=== PATIENT | male | born 1955 | race Caucasian/White ===

== ENCOUNTER 2019-08-20 11:50 | IRF | payer MEDICARE, MEDICAID, SELFPAY ==
--- NOTE | ~2019-08-20 | MR_ITS ---
EXAMINATION: MR brain/brain stem wo/w con DATE: 08/31/2019 08:15 INDICATION: Slurred speech. History of metastatic disease to the spine. TECHNIQUE: Magnetic resonance imaging (MRI) of the brain and brainstem was performed without and with 18 cc MultiHance intravenous contrast. Sequences included sagittal and axial T1-weighted SE, axial d iffusion-weighted FS SE, axial T2*-weighted GRE, axial T2-weighted FLAIR Propeller, and axial T2-weig hted Propeller. Apparent diffusion coefficient (ADC) maps were created. COMPARISON: None. FINDINGS: Brain parenchymal volume is normal for age. No evidence for acute infarction or hemorrhage. No abnormal masses or contrast enhancement. There are scattered moderate periventricular and subcorti rachel white matter changes, most likely related to small vessel ischemic disease (microangiopathy). No ventriculomegaly or midline shift. The paranasal sinuses and mastoids are pneumatized. Orbits are sym metric without disconjugate gaze. Structures of the posterior fossa including 7/8th cranial nerve com plexes are normal. Midline sagittal images are unremarkable. IMPRESSION: 1. No acute intracranial abnormality. No evidence for metastatic disease. 2: Chronic age-related findings. Reviewed, dictated and finalized at location A.
[2019-08-20 12:16] VITALS: BP 132/63; PULSE 88; RESP 19; TEMP 36.7; O2SAT 96; BMI 28.9
--- NOTE | 2019-08-20 12:28 | ADMGEN ---
This patient, Scott Mckinney, was admitted to [facility] Room 230-01. Patient/family oriented to hospital policies and general routines including ID bracelet, bed and alarms, visiting hours, pain management, procedures, bathroom and other care routines, personal items, smoking policy, room service/diet, and visiting hours. Valuables list has been completed. Information on how to activate the Rapid Response Team has been discussed. Patient/Family are encouraged to report perceived risks to care and to ask questions if they do not understand what they are told or what they should do.
[2019-08-20] MEDS: GABAPENTIN 300 MG CAPSULE PO (18:59)
[2019-08-20] MEDS: LIDOCAINE 5% PATCH 1 PATCH TOPICAL (19:01)
[2019-08-20 20:00] VITALS: PULSE 88; RESP 19; O2SAT 96
[2019-08-20 22:00] VITALS: BP 147/60; PULSE 94; RESP 22; TEMP 36.6; O2SAT 95
[2019-08-20] MEDS: CYCLOBENZAPRINE HCL 10 MG TABLET PO (22:11)
[2019-08-21 05:17] LABS: Basophils Absolute Auto 0.1 K/mm3 (0.0-0.1); Basophils Percent Auto 0.6 % (0.2-1.2); Eosinophils Absolute Auto 0.1 K/mm3 (0-0.3); Eosinophils Percent Auto 0.6 % (0-4.4); Hematocrit 42.1 % (42.0-52.0); Hemoglobin 13.8 g/dL (14.0-18.0); Immature Granulocyte Absolute 0.39 K/mm3 (0.00-0.031); Immature Granulocyte Percent A 3.6 % (0-0.5); Lymphocytes Absolute Auto 2.04 K/mm3 (0.9-3.2); Lymphocytes Percent Auto 18.8 % (18.3-44.2); Mean Corpuscular HGB Conc 32.8 g/dl (32-36); Mean Corpuscular Hemoglobin 31.2 pg (26-34); Mean Corpuscular Volume 95.2 fl (80-100); Monocytes Absolute Auto 0.7 K/mm3 (0.1-0.6); Neutrophils Absolute Auto 7.6 K/mm3 (1.3-6.7); Neutrophils Percent Auto 70.4 % (45.5-73.1); Platelet Count Result 194 k/mm3 (150-375); Red Blood Count 4.42 M/mm3 (4.6-6.20); Red Cell Distribution Width 14.6 % (11.5-14.5); White Blood Count 10.8 K/mm3 (4.5-10.0)
[2019-08-21 05:29] LABS: Blood Urea Nitrogen 19 mg/dL (9-20); Calcium 8.7 mg/dL (8.4-10.2); Carbon Dioxide 28 mmol/L (22-30); Chloride 103 mmol/L (98-107); Estimated CRCL calculation 111 ml/min; Estimated Glomerular Filt Rate > 60; Glucose 129 mg/dL (75-110); Potassium 4.2 mmol/L (3.4-5.0); Sodium 135 mmol/L (137-145)
[2019-08-21 06:00] VITALS: BP 119/61; PULSE 95; RESP 16; TEMP 36.6; O2SAT 95
--- NOTE | 2019-08-21 09:00 | WPDREHABHP ---
H&P: HPI History of Present Illness Chief complaint: Spinal cord compression Narrative: Scott Mckinney is a 64 year old male HISTORY OF PRESENT ILLNESS: The patient's primary rehab impairment category is spinal cord dysfunction /nontraumatic The etiologic diagnosis is ventral and left lateral spinal cord compression I saw this patient [id number] on August 21, 2019 at 9:00 a.m. The patient is a 64-year-old white male with a past medical history of hepatocellular carcinoma with known metastatic disease to T3 presented to [facility] on August 15, 2019 with worsening leg weakness over 3 days prior. He was diagnosed with the hepatocellular carcinoma approximately 3 weeks ago or he is not sure may be few months ago. He has received 4 radiation oncology treatments with loss treatment done on the day of presentation. He was also started on Lenvatinib daily and Decadron 4 milligram b.i.d. his medication oncologist is Dr. Rueda and radiation oncologist is Dr. Mckeon the patient reported he has grown weaker over the past 3 days and that his legs feel like jelly. He also reported decreased sensation from the belly button down. CT of the cervical spine and thoracic spine demonstrated lytic metastasis involving the entire T3 vertebral body and left pedicle but unchanged from prior exams. Noted prevertebral and epidural space narrowing of the spinal canal Prieb it will surgery was consulted and reviewed the imaging the noted visible compression of the ventral and left lateral spinal cord with overall moderate to severe spinal stenosis and recommended immediate surgical intervention consisting of T2-T3 laminectomy with application and removal of Ty head claim for surgery. The patient underwent surgery on the evening of August 15, 2019 with . Postoperatively the patient has experienced acute postoperative pain, acute blood-loss anemia, productive cough, hypertension and hyperglycemia. His postoperative pain is being controlled with oral pain medications, acute blood-loss anemia is stable with a hemoglobin of 3 in 13.8 and productive cough being monitored for infectious process, hypertension responded well to increasing lisinopril and hyperglycemia is likely due to steroid burst and is being treated with sliding scale insulin. He is on a general diet and will receive Lovenox at rehab for DVT prophylaxis Therapy was initiated at the acute care facility and the patient transferred to us from [facility] on August 20, 2019 on FALLS OR SURGERIES: The patient has had major surgeries in the 100 days prior to admission. They had falls in the past year. They had falls with injury in the past year. PAST MEDICAL HISTORY: hepatocellular carcinoma with metastatic disease to T3, nicotine dependence, hepatitis-C infection ( cured after antiviral drug therapy), measles, emphysema. 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 There are 3 steps to enter Cristin Trejo he was taking care of his sister prior to who is on hospice for stomach cancer. He did not really have to assist her with anything he is more there for emotional support company. He was completely Kendal in prior and only started using a walker 3 days prior to admission. His goal is to return to independence and be well thing by January. He does report a fall prior to admission when he laid on the floor for approximately 3 hours. He had major surgery this hospitalization. Current everyday smoker. No current alcohol use. FAMILY HISTORY: Sister with the stomach cancer PRIOR LEVEL OF FUNCTION: Eating was INDEPENDENT Oral Care was INDEPENDENT Toileting Hygiene was INDEPENDENT Shower/Bathing was INDEPENDENT Upper Body Dressing was INDEPENDENT Lower Body Dressing was INDEPENDENT Donning/[place] Footwear was INDEPENDENT Rolling
[2019-08-21 10:25] VITALS: BP 131/70; PULSE 100
[2019-08-21] MEDS: DEXAMETHASONE 4 MG TABLET PO (10:31)
[2019-08-21] MEDS: GABAPENTIN 300 MG CAPSULE PO ×3 (10:31→16:44)
[2019-08-21] MEDS: PANTOPRAZOLE 40 MG TABLET PO (10:32)
[2019-08-21] MEDS: lisinopriL 20 MG TABLET PO (10:32)
[2019-08-21] MEDS: MELOXICAM 7.5 MG TABLET PO (10:33)
[2019-08-21 11:24] VITALS: BMI 10.0
[2019-08-21 13:29] VITALS: BMI 28.9
[2019-08-21] MEDS: ENOXAPARIN 40 MG/0.4 ML SYRINGE SUB-Q (13:46)
[2019-08-21 14:00] VITALS: BP 129/67; PULSE 90; RESP 18; TEMP 36.4; O2SAT 98
--- NOTE | 2019-08-21 14:45 | PHAR ---
HOME MED VERIFIED LENVIMA 20MG DAILY DOSE (2X10MG CAPSULES)
--- NOTE | 2019-08-21 15:27 | RPD ---
INDIVIDUALIZED PLAN OF CARE FOR Scott Mckinney Brief Synthesis of Pre-Admission Screen, Post-Admission Evaluation and Therapy Evaluations: The patient presents to rehab with ventral and left lateral spinal cord compression. Comorbidities include status post T2-T3 laminectomy with application and removal of Ty head clamp, acute postoperative pain, acute blood loss anemia, hypertension, hyperglycemia in the setting of steroid administration, productive cough, hypocalcemia, hepatocellular carcinoma with metastasis, nicotine dependence. The patient requires physician services for medical oversight, management of postop complications in setting of present comorbidities, and pain management. He will be followed at least three times a week by the rehabilitation physician. Labs will be drawn to monitor blood counts and electrolytes periodically. The patient requires nursing services for DVT prophylactics, infection protection, medication management and education, bowel retraining, pressure relief, and wound care. Deficits include:ADLs, Balance, Endurance, Mobility, Pain Management, ROM, Safety, Strength,Transfers Americanization Teacher/Case Management for: Discharge Planning and Patient/Family Counseling Physical Therapy: 5 days per week for 90 minutes. Treatments may include: Therapeutic Exercise, Gait Training, Neuromuscular Re-education, Transfer Training, Community Reintegration, Bed Mobility, Patient/Family Education, Wheelchair Mobility Group Therapy/Concurrent Therapy Rationales: -Improve attention span during functional activities in a distracted environment. -Enhance problem solving and/or adequate judgment skills during functional activities in a distracted environment. -Promote increased safety awareness in a distracted environment to reduce fall risk with functional tasks, transfers, and ambulation to allow a more safe, self-sufficient return to the home environment. -Improve dynamic balance skills to promote safety and independence with functional activities in a distracted environment for maximum gain. Occupational Therapy: 5 days per week for 90 minutes. Treatments may include: Therapeutic Exercise, Therapeutic Activity, Cognitive Training, Self-Care Transfer Training, Community Reintegration, Home Management, Patient/Family Education, Wheelchair Mobility Training, Energy Conservation Training Group Therapy/Concurrent Therapy Rationales: -Allow therapist to observe and teach generalization and carry-over of skills learned in individual therapy. -Enhance problem solving and sequencing skills during therapeutic activities in a distracted environment. -Promote increased safety awareness in a realistic setting to reduce fall risk with functional tasks due to visual and verbal distractions. -Increase functional level with ADLs, ADL transfers and use of adaptive equipment through therapeutic activities with others while promoting safety to allow a more safe, self-sufficient return home. Medical Prognosis: Good Anticipated Length of Stay: 12 days Rehab Goals: Eating Goal: 06-Independent Oral Hygiene Goal: 06-Independent Toileting Hygiene Goal: 03-Partial/Moderate Assistance Shower/Bathe Self Goal: 03-Partial/Moderate Assistance Upper Body Dressing Goal: 03-Partial/Moderate Assistance Lower Body Dressing Goal: 03-Partial/Moderate Assistance Putting On/Taking Off Footwear Goal: 03-Partial/Moderate Assistance Rolling Left and Right Goal: 03-Partial/Moderate Assistance Sit to Lying Goal: 03-Partial/Moderate Assistance Lying to Sitting on Side of Bed Goal: 03-Partial/Moderate Assistance Sit to Stand Goal: 02-Substantial/Maximal Assistance Chair/Xet-kp-Rdsta Transfer Goal: 03-Partial/Moderate Assistance Toilet Transfer Goal: 03-Partial/Moderate Assistance Car Transfer Goal: 03-Partial/Moderate Assistance Walk 10' Goal: 02-Substantial/Maximal Assistance Walk 50' with Two Turns Goal: 88-Not Attempted Due to Medical Condition/Safety Concerns Walk 150' Goal: 88
[2019-08-21] MEDS: BENZONATATE 100 MG CAPSULE PO ×2 (18:27→21:10)
--- NOTE | 2019-08-21 20:19 | WPDONCCN ---
Assessment and Plan Assessment and plan (1) Hepatocellular carcinoma: Code(s): C22.0 - Liver cell carcinoma Status: Acute Assessment and Plan: 1. Starting tomorrow, he can begin his targeted drug therapy called Lenvima at 20 mg daily 2. over the weekend, I will recheck his CMP, TSH and CBC to make sure he is not having any adverse effects from this oral biological drug. 3. He will need an EKG on Sunday to assess for QT prolongation from this medication. 4. Since it is a week from his surgery, he should have had good wound healing and therefore this medication should not impair anything further with his postoperative condition. 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 I would proceed with NSAIDs versus steroids to some degree to help with the inflammation. He will continue with rehab and physical therapy as outlined by Dr. Jarvis. HPI Data of Consult Date/Time: 08/21/19 20:19 Requesting Physician: Mitesh Jarvis MD Primary Care Provider: Adeola BellMD Consult Narrative Narrative: Scott Mckinney is a 64 year old male With recent history of metastatic hepatocellular carcinoma, presents as a transfer from [facility] for acute rehabilitation after he underwent stabilization of his spinal cord in the upper thoracic spine from metastatic disease resulting in spinal cord compression and collapse. Patient recently was diagnosed with stage IV Hepatocellular carcinoma after he underwent a CT-guided liver biopsy. unfortunately, he had metastatic disease to T3 with compression fracture and spinal cord compression. He was undergoing radiation therapy by Dr. Mckeon along with dexamethasone 4 mg t.i.d.. Unfortunately last week, he started having progressive leg paresis and resultant MRI showed collapse of the vertebral body with further spinal cord compression. He was transferred to [facility] under the neuro surgical service. He underwent immediate spinal cord stabilization procedure. After that, he was transferred to [facility] acute rehab. Currently, he is complain of significant pain in the upper back with some radiculopathy down the spine. In addition, he has been prescribed targeted drug therapy with Lenvima to be dosed at 20 mg daily. He has yet to start this. Review of Systems Review of Systems: All systems reviewed & are unremarkable except as noted in HPI and below Constitutional: Constitutional: Denies anorexia, Reports difficulty sleeping, Reports fatigue, Denies fever(s), Reports malaise, Denies night sweats, Reports snoring, Reports weakness and Denies weight loss Eyes: Eyes: Denies blurry vision ENT: Denies dysphagia, Denies epistaxis, Denies mouth lesions, Denies mouth pain, Denies odynophagia, Denies disequilibrium and Denies sore throat Cardiovascular: Cardiovascular: Denies chest pain, Reports leg edema, Reports radiating jaw, neck or arm pain and Denies dyspnea Respiratory: Respiratory: Denies cough, Denies dyspnea and Reports snoring Gastrointestinal: Gastrointestinal: Denies abdominal pain, Denies constipation, Denies dysphagia, Denies diarrhea, Reports nausea, Denies odynophagia and Denies vomiting Genitourinary: Genitourinary: Denies hematuria and Denies dysuria Musculoskeletal: Musculoskeletal: Denies myalgias, Denies arthralgias and Denies muscle weakness Integumentary/Breasts: Skin/Breast: Denies rash and Denies unusual bruising Neurologic: Reports abnormal gait, Denies confusion, Denies disequilibrium and Reports weakness Psychiatric: Psychiatric: Reports anxiety, Denies confusion and Denies depression Endocrine: Endocrine: Denies fatigue Hematologic/Lymphatic: Hematologic/Lymphatic: Denies easy bleeding, Denies easy bruising and Denies lymphadenopathy PMFSH P
[2019-08-21] MEDS: CYCLOBENZAPRINE HCL 10 MG TABLET PO (21:10)
[2019-08-21 22:00] VITALS: BP 136/68; PULSE 98; RESP 20; TEMP 36.5; O2SAT 99
[2019-08-22 06:00] VITALS: BP 123/63; PULSE 85; RESP 20; TEMP 36.4; O2SAT 94
[2019-08-22] MEDS: BENZONATATE 100 MG CAPSULE PO ×3 (06:31→16:53)
--- NOTE | 2019-08-22 08:39 | WPDNEURORHBP ---
Subjective Date/time seen: 08/22/19 08:39 Interval history: this 64-year-old gentleman is here postop T2-T3 laminectomy for metastatic disease from hepatocellular carcinoma which has left him essentially severely para paretic he is overall about the same has been seen by the oncologist and has been is started on new medication today with the follow-up lab works and the EKG coming Sunday The patient denies any headache nausea vomiting chest pain or shortness of breath he is essentially paralyzed from the belly down with absent reflexes or times relatively preserved in a dynamic way and negative Babinski his strength roughly is about the same as of yesterday The patient does have an appointment with the surgeon at the hospital when he came to us and will keep that appointment for coming Sunday and he will go by ambulance Review of Systems Review of Systems: All systems reviewed & are unremarkable except as noted in HPI and below Exam Const: General: comfortable and no acute distress HENMT: General nose exam: Normal nares present Mouth: Yes moist mucous membranes Eyes: General: appearance normal, both eyes and all related structures Neck: Neck: supple and no JVD Resp: Effort & Inspection: normal respiratory effort Auscultation: clear to auscultation bilaterally Cardio: Rate: regular rate Rhythm: regular rhythm GI: GI Palp: Yes Soft to palpation Auscultation: normal bowel sounds : Male General Exam: Yes normal external exam Other: patient is periodically incontinent for the bladder however bowel functions is intact Skin: General skin exam: normal color and no rashes or lesions noted Neuro: Other: patient is awake alert and well oriented time place and person has normal speech and language function however generalized weakness to wear the lower extremities significantly involved with strength 3- over 5 in upper extremity 4- over 5 with specially a depressed reflexes and neutral Babinski sign Extrem: General: normal to inspection Psych: Mental Status: mental status grossly normal Objective Data Vital Signs Vital Signs: Vital Signs - 24 hr 08/21/19 10:25 08/21/19 14:00 08/21/19 22:00 Temperature 36.4 C 36.5 C Pulse Rate 100 90 98 Respiratory Rate 18 20 Blood Pressure 131/70 129/67 136/68 Pulse Oximetry 98 99 08/22/19 06:00 Temperature 36.4 C L Pulse Rate 85 Respiratory Rate 20 Blood Pressure 123/63 Pulse Oximetry 94 Intake/Output Intake/Output: Intake & Output 08/19/19 08/20/19 08/21/19 08/22/19 23:59 23:59 23:59 23:59 Intake Total 960 840 Balance 960 840 Meds/Results Medications: Active Medications Generic Name Dose Route Start Last Admin Trade Name Freq PRN Reason Stop Dose Admin Hydrocodone Bitart/Acetaminophen 1 tab 08/20/19 13:55 08/22/19 06:36 [place] 10-325 Mg PO 1 tab Q4H PRN Administration Pain Benzonatate 100 mg 08/20/19 13:55 08/22/19 06:31 Tessalon Perles PO 100 mg TID PRN Administration Cough Cyclobenzaprine HCl 10 mg 08/20/19 21:00 08/21/19 21:10 Flexeril PO 10 mg HS JOSE Administration Dexamethasone 4 mg 08/21/19 09:00 08/21/19 10:31 Dexamethasone Po PO 4 mg DAILY JOSE Administration Docusate Sodium 100 mg 08/20/19 17:00 08/21/19 16:37 Colace Capsule PO Not Given BID JOSE Enoxaparin Sodium 40 mg 08/21/19 09:00 08/21/19 13:46 Lovenox SUB-Q 40 mg DAILY JOSE Administration Gabapentin 300 mg 08/20/19 17:00 08/21/19 16:44 Neurontin PO 300 mg TID JOSE Administration Lidocaine 1 patch 08/20/19 09:00 08/21/19 13:45 Lidoderm TOPICAL Not Given DAILY JOSE Lisinopril 20 mg 08/21/19 09:00 08/21/19 10:32 Prinivil PO 20 mg DAILY JOSE Administration Meloxicam 7.5 mg 08/21/19 09:00 08/21/19 10:33 Mobic PO 7.5 mg DAILY JOSE Administration Ondansetron HCl 4 mg 08/20/19 13:55 Zofran Odt PO Q8H PRN Nausea Pantoprazole Sodium 40 mg 08/21/19
[2019-08-22] MEDS: DEXAMETHASONE 4 MG TABLET PO (09:12)
[2019-08-22] MEDS: PANTOPRAZOLE 40 MG TABLET PO (09:12)
[2019-08-22] MEDS: lisinopriL 20 MG TABLET PO (09:12)
[2019-08-22] MEDS: ENOXAPARIN 40 MG/0.4 ML SYRINGE SUB-Q (09:12)
[2019-08-22] MEDS: GABAPENTIN 300 MG CAPSULE PO ×3 (09:12→16:52)
[2019-08-22] MEDS: MELOXICAM 7.5 MG TABLET PO (09:13)
--- NOTE | 2019-08-22 10:00 | PC.NURSE ---
pt refused lidoderm patches this morning stating they don't help. updated.
[2019-08-22 14:00] VITALS: BP 164/74; PULSE 86; RESP 20; TEMP 36.3; O2SAT 97
[2019-08-22] MEDS: CYCLOBENZAPRINE HCL 10 MG TABLET PO (20:15)
[2019-08-22 21:18] VITALS: BP 139/94; PULSE 100; RESP 20; TEMP 36.3; O2SAT 96
[2019-08-23] MEDS: BENZONATATE 100 MG CAPSULE PO ×3 (02:12→17:46)
[2019-08-23 06:00] VITALS: BP 148/71; PULSE 81; RESP 16; TEMP 36.4; O2SAT 96
[2019-08-23 08:00] VITALS: PULSE 81; RESP 16; O2SAT 96
[2019-08-23] MEDS: PANTOPRAZOLE 40 MG TABLET PO (08:51)
[2019-08-23] MEDS: MELOXICAM 7.5 MG TABLET PO (08:51)
[2019-08-23] MEDS: DOCUSATE SODIUM 100 MG CAPSULE PO ×2 (08:51→17:41)
[2019-08-23] MEDS: DEXAMETHASONE 4 MG TABLET PO (08:51)
[2019-08-23] MEDS: lisinopriL 20 MG TABLET PO (08:51)
[2019-08-23] MEDS: GABAPENTIN 300 MG CAPSULE PO ×3 (08:52→17:41)
[2019-08-23] MEDS: SENNOSIDES 8.6 MG TABLET PO ×2 (08:52→17:41)
[2019-08-23] MEDS: ENOXAPARIN 40 MG/0.4 ML SYRINGE SUB-Q (08:52)
--- NOTE | 2019-08-23 12:43 | WPDNEURORHBP ---
Subjective Date/time seen: reviewed no /14/20 12:43 Exam Const: General: cooperative and comfortable HENMT: Head: normocephalic Ears: hearing grossly normal bilaterally General nose exam: Normal external nose present Face and sinus: normal facial exam Mouth: Yes Normal oral and palatal mucosa present Eyes: General: appearance normal, both eyes and all related structures Neck: Neck: normal visual inspection, full ROM and no lymphadenopathy Resp: Effort & Inspection: normal respiratory effort Auscultation: clear to auscultation bilaterally Cardio: Rate: regular rate Rhythm: regular rhythm GI: Auscultation: normal bowel sounds Skin: General skin exam: normal color Neuro: General: patient oriented x3 and moves all extremities Cranial nerves: Yes CN's II-XII intact bilaterally, Yes Equal, round and reactive pupils present, Yes Bilaterally intact EOM present, Yes Nystagmus not present, Yes Normal facial strength present, Yes Midline tongue present, Yes Symmetric palate elevation present, Yes Ability to bilaterally rotate head present and Yes Ability to bilaterally elevate shoulders present Cognition (Neuro): normal cognition Speech: normal speech Gait exam (Neuro): Unable to assess gait and Other gait observations present (quadroparesis LE>UE) Sensory Exam: Sensory deficit (Neuro) Deep tendon reflexes (DTR's): Right triceps reflex intensity grade: 0, Left triceps reflex intensity grade: 0, Rt Biceps (C5, C6): 0, Left biceps reflex intensity grade: 0, Right brachioradialis reflex intensity grade: 0, Left brachioradialis reflex intensity grade: 0, Right patellar reflex intensity grade: 0, Left patellar reflex intensity grade: 0, Right ankle reflex intensity grade: 0 and Left ankle reflex intensity grade: 0 Plantar Reflex Responses: equivocal: bilateral Psych: Appearance: grossly normal Objective Data Vital Signs Vital Signs: Vital Signs - 24 hr 08/22/19 14:00 08/22/19 21:18 08/23/19 06:00 Temperature 36.3 C L 36.3 C L 36.4 C L Pulse Rate 86 100 81 Respiratory Rate 20 20 16 Blood Pressure 164/74 H 139/94 H 148/71 H Pulse Oximetry 97 96 96 08/23/19 08:00 Temperature Pulse Rate 81 Respiratory Rate 16 Blood Pressure Pulse Oximetry 96 Intake/Output Intake/Output: Intake & Output 08/20/19 08/21/19 08/22/1920 23:59 23:59 23:59 23:59 Intake Total 960 840 720 100 Balance 960 840 720 100 Meds/Results Medications: Active Medications Generic Name Dose Route Start Last Admin Trade Name Freq PRN Reason Stop Dose Admin Hydrocodone Bitart/Acetaminophen 1 tab 08/20/19 13:55 08/23/19 02:11 [place] 10-325 Mg PO 1 tab Q4H PRN Administration Pain Benzonatate 100 mg 08/20/19 13:55 08/23/19 02:12 Tessalon Perles PO 100 mg TID PRN Administration Cough Cyclobenzaprine HCl 10 mg 08/20/19 21:00 08/22/19 20:15 Flexeril PO 10 mg HS JOSE Administration Dexamethasone 4 mg 08/21/19 09:00 08/23/19 08:51 Dexamethasone Po PO 4 mg DAILY JOSE Administration Docusate Sodium 100 mg 08/20/19 17:00 08/23/19 08:51 Colace Capsule PO 100 mg BID JOSE Administration Enoxaparin Sodium 40 mg 08/21/19 09:00 08/23/19 08:52 Lovenox SUB-Q 40 mg DAILY JOSE Administration Gabapentin 300 mg 08/20/19 17:00 08/23/19 08:52 Neurontin PO 300 mg TID JOSE Administration Lisinopril 20 mg 08/21/19 09:00 08/23/19 08:51 Prinivil PO 20 mg DAILY JOSE Administration Meloxicam 7.5 mg 08/21/19 09:00 08/23/19 08:51 Mobic PO 7.5 mg DAILY JOSE Administration Ondansetron HCl 4 mg 08/20/19 13:55 Zofran Odt PO Q8H PRN Nausea Pantoprazole Sodium 40 mg 08/21/19 09:00 08/23/19 08:51 Protonix PO 40 mg QAM JOSE Administration Senna 8.6 mg 08/20/19 17:00 08/23/19 08:52 Senokot Tablet PO 8.6 mg BID JOSE Administration Progress Note: A&P Assessment and Plan (1) 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
[2019-08-23 14:00] VITALS: BP 148/70; PULSE 90; RESP 18; TEMP 36; O2SAT 99
[2019-08-23] MEDS: CYCLOBENZAPRINE HCL 10 MG TABLET PO (20:23)
[2019-08-23 21:14] VITALS: PULSE 90; RESP 18; O2SAT 99
[2019-08-23 22:00] VITALS: BP 156/82; PULSE 91; RESP 18; TEMP 37.1; O2SAT 90
[2019-08-24 06:00] VITALS: BP 146/78; PULSE 86; RESP 20; TEMP 36.8; O2SAT 92
[2019-08-24 08:00] VITALS: PULSE 86; RESP 20; O2SAT 92
[2019-08-24] MEDS: lisinopriL 20 MG TABLET PO (09:43)
[2019-08-24] MEDS: GABAPENTIN 300 MG CAPSULE PO ×3 (09:43→17:23)
[2019-08-24] MEDS: ENOXAPARIN 40 MG/0.4 ML SYRINGE SUB-Q (09:43)
[2019-08-24] MEDS: MELOXICAM 7.5 MG TABLET PO (09:43)
[2019-08-24] MEDS: DOCUSATE SODIUM 100 MG CAPSULE PO ×2 (09:43→17:23)
[2019-08-24] MEDS: PANTOPRAZOLE 40 MG TABLET PO (09:43)
[2019-08-24] MEDS: DEXAMETHASONE 4 MG TABLET PO (09:44)
--- NOTE | 2019-08-24 10:09 | PCOTNOTE ---
Attempted to see patient for OT this AM, however, patient refused this date to participate in any functional task or exercise as patient is not feeling well and is having pain across his back and shoulders. Patient reported he plans to talk with his doctor about taking 3 days off from therapy to get well/better and then begin participating again in therapy. Therapist educated patient on importance of participating in therapy and requirements for staying in therapy on TRC. Patient refused this date still, patient not seen for OT.
--- NOTE | 2019-08-24 12:48 | WPDNEURORHBP ---
Subjective Date/time seen: 08/24/19 12:48 Review of Systems Review of Systems: All systems reviewed & are unremarkable except as noted in HPI and below Exam Const: General: cooperative, well developed, acute distress (c/o pain in shoulders) mild and anxious Orientation/consciousness: patient oriented x3 Eyes: General: appearance normal, both eyes and all related structures Alignment and Position: alignment normal Periorbital: periorbital findings normal Eyelids: eyelids normal Sclera: sclerae normal Cornea: corneas normal Pupils: Equal, round and reactive pupils present EOM: EOMs intact bilaterally Direct Ophthalmoscopy: normal light reflex Neck: Neck: full ROM and no lymphadenopathy Lymphatic: no lymphadenopathy noted Resp: Effort & Inspection: normal respiratory effort and able to speak in complete sentences Auscultation: clear to auscultation bilaterally Cardio: Rate: regular rate Rhythm: regular rhythm GI: Auscultation: normal bowel sounds Skin: General skin exam: no rashes or lesions noted Neuro: General: patient oriented x3 Cranial nerves: Yes CN's II-XII intact bilaterally, Yes Equal, round and reactive pupils present, Yes Nystagmus not present, Yes Normal facial strength present, Yes Midline tongue present, Yes Symmetric palate elevation present, Yes Ability to bilaterally rotate head present and Yes Ability to bilaterally elevate shoulders present Cognition (Neuro): normal cognition Speech: normal speech Gait exam (Neuro): Unable to assess gait Motor exam (neuro): 5/5 motor strength present throughout (quadroparesisLE>UE), Motor fasciculations not present and Motor abnormalities not present Deep tendon reflexes (DTR's): Right triceps reflex intensity grade: 0, Left triceps reflex intensity grade: 0, Rt Biceps (C5, C6): 0, Left biceps reflex intensity grade: 0, Right brachioradialis reflex intensity grade: 0, Left brachioradialis reflex intensity grade: 0, Right patellar reflex intensity grade: 0, Left patellar reflex intensity grade: 0, Right ankle reflex intensity grade: 0 and Left ankle reflex intensity grade: 0 Plantar Reflex Responses: equivocal: bilateral Psych: Mental Status: mental status grossly normal Speech and movement: Clear speech present Affect: Anxious affect present Attitude: cooperative Thought process: Normal thought process present Thought content: Yes Normal thought content present Insight: Fair insight present (Psych) Objective Data Vital Signs Vital Signs: Vital Signs - 24 hr 08/23/19 14:00 08/23/19 21:14 08/23/19 22:00 Temperature 36.0 C L 37.1 C Pulse Rate 90 90 91 Respiratory Rate 18 18 18 Blood Pressure 148/70 H 156/82 H Pulse Oximetry 99 99 90 08/24/19 06:00 08/24/19 08:00 Temperature 36.8 C Pulse Rate 86 86 Respiratory Rate 20 20 Blood Pressure 146/78 H Pulse Oximetry 92 92 Intake/Output Intake/Output: Intake & Output 08/21/19 08/22/19 08/23/19 08/24/19 23:59 23:59 23:59 23:59 Intake Total 840 720 580 Balance 840 720 580 Meds/Results Medications: Active Medications Generic Name Dose Route Start Last Admin Trade Name Freq PRN Reason Stop Dose Admin Hydrocodone Bitart/Acetaminophen 1 tab 08/20/19 13:55 08/24/19 09:44 [place] 10-325 Mg PO 1 tab Q4H PRN Administration Pain Benzonatate 100 mg 08/20/19 13:55 08/23/19 17:46 Tessalon Perles PO 100 mg TID PRN Administration Cough Cyclobenzaprine HCl 10 mg 08/20/19 21:00 08/23/19 20:23 Flexeril PO 10 mg HS JOSE Administration Dexamethasone 4 mg 08/21/19 09:00 08/24/19 09:44 Dexamethasone Po PO 4 mg DAILY JOSE Administration Docusate Sodium 100 mg 08/20/19 17:00 08/24/19 09:43 Colace Capsule PO 100 mg BID JOSE Administration Enoxaparin Sodium 40 mg 08/21/19 09:00 08/24/19 09:43 Lovenox SUB-Q 40 mg DAILY JOSE Administration Gabapentin 300 mg 08/20/19 17:00 08/24/19 09:43 Neurontin PO 300 mg TID JOSE Adminis
[2019-08-24] MEDS: BENZONATATE 100 MG CAPSULE PO ×3 (12:51→21:25)
[2019-08-24 15:00] VITALS: BP 133/70; PULSE 78; RESP 16; TEMP 36.2; O2SAT 98
--- NOTE | 2019-08-24 15:17 | PCPTNOTE ---
Patient initially refused Physical therapy this morning at 11:00, stating I need to take three days off and then I can do something . Patient did participate with Physical Therapy lower extremity exercises this afternoon, however refused to transfer out of bed.
[2019-08-24] MEDS: SENNOSIDES 8.6 MG TABLET PO (17:23)
[2019-08-24] MEDS: CYCLOBENZAPRINE HCL 10 MG TABLET PO (21:21)
[2019-08-24 22:00] VITALS: BP 174/76; PULSE 90; RESP 18; TEMP 36.7; O2SAT 98
[2019-08-25 06:00] VITALS: BP 148/76; PULSE 85; RESP 18; TEMP 36.6; O2SAT 94
--- NOTE | 2019-08-25 06:00 | ECG_ITS ---
Measurements Intervals [place] Rate: 85 P: 43 IN: 156 QRS: 6 QRSD: 93 T: 47 QT: 356 QTc: 424 Interpretive Statements SINUS RHYTHM NORMAL ECG Electronically Signed On 08-25-2019 9:47:03 CDT by Garfield Mohan D.O.
[2019-08-25] MEDS: BENZONATATE 100 MG CAPSULE PO (08:39)
[2019-08-25] MEDS: PANTOPRAZOLE 40 MG TABLET PO (08:40)
[2019-08-25] MEDS: MELOXICAM 7.5 MG TABLET PO (08:40)
[2019-08-25] MEDS: DOCUSATE SODIUM 100 MG CAPSULE PO ×2 (08:40→17:27)
[2019-08-25] MEDS: ENOXAPARIN 40 MG/0.4 ML SYRINGE SUB-Q (08:40)
[2019-08-25] MEDS: GABAPENTIN 300 MG CAPSULE PO ×3 (08:40→17:28)
[2019-08-25] MEDS: lisinopriL 20 MG TABLET PO (08:41)
[2019-08-25] MEDS: SENNOSIDES 8.6 MG TABLET PO ×2 (08:41→17:27)
[2019-08-25] MEDS: DEXAMETHASONE 4 MG TABLET PO (08:41)
--- NOTE | 2019-08-25 09:50 | PC.NURSE ---
Patient transported via ambulance to [facility] in [facility] for follow up orthopedic appointment.
--- NOTE | 2019-08-25 10:17 | PCPTNOTE ---
Patient unable to be seen for physical therapy treatment this morning secondary to scheduled medical appointment.
--- NOTE | 2019-08-25 12:50 | PC.NURSE ---
Patient returned to floor after follow-up doctor visit via ambulance transport
[2019-08-25 14:00] VITALS: BP 153/76; PULSE 85; PULSE 87; RESP 18; RESP 19; TEMP 36.6; O2SAT 92; O2SAT 94
[2019-08-25 17:58] VITALS: BP 148/84; PULSE 88; O2SAT 97
[2019-08-25] MEDS: CYCLOBENZAPRINE HCL 10 MG TABLET PO (21:08)
[2019-08-25 22:00] VITALS: BP 174/87; PULSE 90; RESP 18; TEMP 35.9; O2SAT 94
[2019-08-26 06:00] VITALS: BP 143/77; PULSE 80; RESP 16; TEMP 36.6; O2SAT 94
[2019-08-26] MEDS: ENOXAPARIN 40 MG/0.4 ML SYRINGE SUB-Q (08:47)
[2019-08-26] MEDS: DEXAMETHASONE 4 MG TABLET PO (08:47)
[2019-08-26] MEDS: GABAPENTIN 300 MG CAPSULE PO ×3 (08:47→17:20)
[2019-08-26] MEDS: DOCUSATE SODIUM 100 MG CAPSULE PO ×2 (08:47→17:20)
[2019-08-26] MEDS: PANTOPRAZOLE 40 MG TABLET PO (08:48)
[2019-08-26] MEDS: MELOXICAM 7.5 MG TABLET PO (08:48)
[2019-08-26] MEDS: lisinopriL 20 MG TABLET PO (08:48)
[2019-08-26] MEDS: SENNOSIDES 8.6 MG TABLET PO ×2 (08:49→17:21)
[2019-08-26] MEDS: CYCLOBENZAPRINE HCL 10 MG TABLET PO ×2 (10:43→17:20)
--- NOTE | 2019-08-26 11:07 | PCNFU ---
Nutrition Follow-Up Complete: Suboptimal oral intake related to decreased appetite as evidenced by meal refusal at breakfast. Patient to consume 50% of meals or more + supplements Goal:Meeting goal. Pt current nutrition is Regular. Nutrition recommendation: Agree Last recorded weight is 94.2 kg. Bowel Motility:+BM 08/23 Labs Reviewed:no new labs to report Meds Noted:Lovenox,Colace,Protonix Additional Notes: Agree with Regular diet order. Patient is also receiving Thrive Ice Cream BID for an additional 270 kcals and 9 gms protein. Intakes reported: 100% of meals. Follow up in 7 days.
--- NOTE | 2019-08-26 12:39 | PC.NURSE ---
Changed prn Edcouch to scheduled q4 and increased flexeril to bid, so will receive in am and hs to help with pain especially during therapy. Will monitor for increased drowsiness.
[2019-08-26 14:00] VITALS: BP 138/78; PULSE 87; RESP 18; TEMP 36.4; O2SAT 93
--- NOTE | 2019-08-26 14:50 | WPDNEURORHBP ---
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 along with the pedicle and the admitting diagnosis of ventral left lateral spinal cord compression for which he had received radiation prior to having laminectomy and will be getting radiation somewhere down the line the patient is on anti cancerous drug from home has paraparesis of moderately severe degree however is getting some sensation in his legs back and 1 hopes that his paraparesis improves is till he has a long weighted do he denies any headache nausea vomiting chest pain or shortness breast however pain at the surgical site he did go for a doctor's appointment where the sutures were taken out and the area of the skin is clean no fever no chills no sore throat Review of Systems Review of Systems: All systems reviewed & are unremarkable except as noted in HPI and below Exam Const: General: comfortable and no acute distress HENMT: General nose exam: Normal nares present Mouth: Yes moist mucous membranes Eyes: General: appearance normal, both eyes and all related structures Neck: Neck: supple and no JVD Resp: Effort & Inspection: normal respiratory effort Auscultation: clear to auscultation bilaterally Cardio: Rate: regular rate Rhythm: regular rhythm GI: GI Palp: Yes Soft to palpation Auscultation: normal bowel sounds Skin: General skin exam: normal color and no rashes or lesions noted Neuro: Other: patient is awake and alert well oriented time place and person is speech language functions are normal cranial resumption normal upper extremity strength is 4+ over 5 lower extremity strength is barely 2+ over 5 with depressed reflexes and equivocal Babinski sign he needs assistance he needs assistance all the activities of daily living Extrem: General: normal to inspection Psych: Mental Status: mental status grossly normal Objective Data Vital Signs Vital Signs: Vital Signs - 24 hr 08/25/19 17:58 08/25/19 22:00 08/26/19 06:00 Temperature 35.9 C L 36.6 C Pulse Rate 88 90 80 Respiratory Rate 18 16 Blood Pressure 148/84 H 174/87 H 143/77 H Pulse Oximetry 97 94 94 08/26/19 14:00 Temperature 36.4 C L Pulse Rate 87 Respiratory Rate 18 Blood Pressure 138/78 Pulse Oximetry 93 Intake/Output Intake/Output: Intake & Output 08/23/19 08/24/19 08/25/19 08/26/19 23:59 23:59 23:59 23:59 Intake Total 396 910 5953 860 Balance 345 432 2558 860 Meds/Results Medications: Active Medications Generic Name Dose Route Start Last Admin Trade Name Freq PRN Reason Stop Dose Admin Hydrocodone Bitart/Acetaminophen 1 tab 08/26/19 13:00 08/26/19 12:20 [place] 10-325 Mg PO 1 tab Q4HR JOSE Administration Hydrocodone Bitart/Acetaminophen 1 tab 08/26/19 22:00 [place] 10-325 Mg PO Q4H PRN Pain Rated 7-10 Benzonatate 100 mg 08/20/19 13:55 08/25/19 08:39 Tessalon Perles PO 100 mg TID PRN Administration Cough Cyclobenzaprine HCl 10 mg 08/26/19 10:00 08/26/19 10:43 Flexeril PO 10 mg BID JOSE Administration Dexamethasone 4 mg 08/21/19 09:00 08/26/19 08:47 Dexamethasone Po PO 4 mg DAILY JOSE Administration Docusate Sodium 100 mg 08/20/19 17:00 08/26/19 08:47 Colace Capsule PO 100 mg BID JOSE Administration Enoxaparin Sodium 40 mg 08/21/19 09:00 08/26/19 08:47 Lovenox SUB-Q 40 mg DAILY JOSE Administration Gabapentin 300 mg 08/20/19 17:00 08/26/19 12:20 Neurontin PO 300 mg TID JOSE Administration Lisinopril 20 mg 08/21/19 09:00 08/26/19 08:48 Prinivil PO 20 mg DAILY JOSE Administration Meloxicam 7.5 mg 08/21/19 09:00 08/26/19 08:48 Mobic PO 7.5 mg DAILY JOSE Administration Ondansetron HCl 4 mg 08/20/19 13:55 Zofran Odt PO Q8H PRN Nausea Pantoprazole Sodium 40 mg 08/21/19 09:00 08/09
--- NOTE | 2019-08-26 14:51 | PCPTNOTE ---
ADRIA MAST completed an inpatient rehab wheelchair evaluation on [facility] on 08/26/2019. The patient is unable to safely and independently ambulate household distances due to their current impairments. Their diagnosis is Spinal cord compression and their impairments include decreased strength, decreased endurance, decreased range of motion, decreased balance, lower extremity weakness, and ataxia. [f pt name]'s weight bearing status is weight-bearing as tolerated on the bilateral lower legs. The patient demonstrates significant functional mobility limitations that impair their ability to participate in mobility-related activities of daily living (MRADLs), including toileting, feeding, dressing, grooming, and bathing in the customary locations in the home. These limitations cannot be sufficiently resolved by the use of an appropriately fitted cane or walker. It is recommended that the patient utilize a wheelchair for functional mobility within the home in order to facilitate optimal safety, independence and participation in all MRADL's and adequately access their home environment on a regular basis. The patient's home provides adequate access between rooms, maneuvering space, and surfaces to accommodate the recommended wheelchair. The use of a wheelchair for functional mobility is strongly recommended and the patient is receptive to using the wheelchair. The use of this wheelchair will significantly improve the patient's ability to participate in MRADLS and the patient will use it on a regular basis in the home. This will facilitate optimal safety, independence, and participation. The patient has demonstrated sufficient physical and mental capabilities needed to safely propel a manual wheelchair that is provided in the home during a typical day. Recommended Wheelchair Frame: 18 by 18 Recommended Wheelchair Cushion:gel wheelchair cushion Wheelchair Leg Recommendations: removable leg rests, anti-tippers, swing-away arms. Anti-tippers are recommended due to patient demonstrating increased risk for falls. They would benefit from anti-tippers with added safety and stabilization. Evaluating Therapist Date I agree with and certify that the above recommendation is medically necessary. Referring Physician Date I agree with and certify that the above recommendation is medically necessary. Referring Physician Date
[2019-08-26 22:00] VITALS: BP 115/69; PULSE 93; RESP 18; TEMP 36.5; O2SAT 95
[2019-08-27 06:00] VITALS: BP 114/62; PULSE 86; RESP 18; TEMP 36.4; O2SAT 96
[2019-08-27 08:00] VITALS: PULSE 86; RESP 18; O2SAT 96
[2019-08-27] MEDS: PANTOPRAZOLE 40 MG TABLET PO (09:02)
[2019-08-27] MEDS: MELOXICAM 7.5 MG TABLET PO (09:02)
[2019-08-27] MEDS: DOCUSATE SODIUM 100 MG CAPSULE PO ×2 (09:02→17:13)
[2019-08-27] MEDS: DEXAMETHASONE 4 MG TABLET PO (09:03)
[2019-08-27] MEDS: lisinopriL 20 MG TABLET PO (09:03)
[2019-08-27] MEDS: ENOXAPARIN 40 MG/0.4 ML SYRINGE SUB-Q (09:03)
[2019-08-27] MEDS: GABAPENTIN 300 MG CAPSULE PO ×2 (09:03→14:20)
[2019-08-27] MEDS: SENNOSIDES 8.6 MG TABLET PO ×2 (09:05→17:13)
--- NOTE | 2019-08-27 10:42 | PCPTNOTE ---
Scott Mckinney was evaluated for a adalgisa lift on 08/27/2019 by this physical therapist. The adalgisa lift will resolve patient's mobility limitations and will be used for ADL's within the home. The patient can safely use the sliding board with 2 person assist currently. ?The adalgisa lift will resolve the patient?s mobility deficits, including limited strength bilateal LE's, impaired sitting and standing balance, poor endurance and pain management.
--- NOTE | 2019-08-27 12:49 | WPDNEURORHBP ---
Subjective Date/time seen: 08/27/19 12:49 Interval history: this 64-year-old gentleman is here because of significant paraparesis postop T2-T3 lobectomy for metastatic disease to his vertebra his making some progress in the lower extremities strength denies any headache nausea vomiting chest pain shortness of breath fever chills or sore throat bladder bowel function is stable Review of Systems Review of Systems: All systems reviewed & are unremarkable except as noted in HPI and below Exam Const: General: comfortable and no acute distress HENMT: General nose exam: Normal nares present Mouth: Yes moist mucous membranes Eyes: General: appearance normal, both eyes and all related structures Neck: Neck: supple and no JVD Resp: Effort & Inspection: normal respiratory effort Auscultation: clear to auscultation bilaterally Cardio: Rate: regular rate Rhythm: regular rhythm GI: GI Palp: Yes Soft to palpation Auscultation: normal bowel sounds Skin: General skin exam: normal color and no rashes or lesions noted Neuro: Other: patient is awake alert were origin time pleasant person is speech language functions are normal cranial exam shows normal upper extremity strength is 4+ over 5 lower extremity strength is 2+ over 5 with depressed reflexes and positive Babinski sign and sensory are dysfunction of significant degree up to upper chest level and much less so in the arms is still needing lot of assistance in the activities of daily living Extrem: General: normal to inspection Psych: Mental Status: mental status grossly normal Objective Data Vital Signs Vital Signs: Vital Signs - 24 hr 08/26/19 14:00 08/26/19 22:00 08/27/19 06:00 Temperature 36.4 C L 36.5 C 36.4 C Pulse Rate 87 93 86 Respiratory Rate 18 18 18 Blood Pressure 138/78 115/69 114/62 Pulse Oximetry 93 95 96 08/27/19 08:00 Temperature Pulse Rate 86 Respiratory Rate 18 Blood Pressure Pulse Oximetry 96 Intake/Output Intake/Output: Intake & Output 08/24/19 08/25/19 08/26/19 08/27/19 23:59 23:59 23:59 23:59 Intake Total 720 1065 1340 480 Balance 720 1065 1340 480 Meds/Results Medications: Active Medications Generic Name Dose Route Start Last Admin Trade Name Freq PRN Reason Stop Dose Admin Hydrocodone Bitart/Acetaminophen 1 tab 08/26/19 22:00 [place] 10-325 Mg PO Q4H PRN Pain Rated 7-10 Hydrocodone Bitart/Acetaminophen 1 tab 08/27/19 10:35 [place] 10-325 Mg PO 09/02/19 23:59 Q6H PRN Pain Rated 7-10 Benzonatate 100 mg 08/20/19 13:55 08/25/19 08:39 Tessalon Perles PO 100 mg TID PRN Administration Cough Cyclobenzaprine HCl 10 mg 08/26/19 10:00 08/26/19 17:20 Flexeril PO 10 mg BID JOSE Administration Dexamethasone 4 mg 08/21/19 09:00 08/27/19 09:03 Dexamethasone Po PO 4 mg DAILY JOSE Administration Docusate Sodium 100 mg 08/20/19 17:00 08/27/19 09:02 Colace Capsule PO 100 mg BID JOSE Administration Enoxaparin Sodium 40 mg 08/21/19 09:00 08/27/19 09:03 Lovenox SUB-Q 40 mg DAILY JOSE Administration Gabapentin 300 mg 08/20/19 17:00 08/27/19 09:03 Neurontin PO 300 mg TID JOSE Administration Lisinopril 20 mg 08/21/19 09:00 08/27/19 09:03 Prinivil PO 20 mg DAILY JOSE Administration Meloxicam 7.5 mg 08/21/19 09:00 08/27/19 09:02 Mobic PO 7.5 mg DAILY JOSE Administration Ondansetron HCl 4 mg 08/20/19 13:55 Zofran Odt PO Q8H PRN Nausea Pantoprazole Sodium 40 mg 08/21/19 09:00 08/27/19 09:02 Protonix PO 40 mg QAM JOSE Administration Senna 8.6 mg 08/20/19 17:00 08/27/19 09:05 Senokot Tablet PO 8.6 mg BID JOSE Administration Progress Note: A&P Assessment and Plan (1) Neuropathy: Code(s): G62.9 - Polyneuropathy, unspecified Status: Acute (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
[2019-08-27 14:00] VITALS: BP 115/57; PULSE 83; RESP 20; TEMP 36.2; O2SAT 97
--- NOTE | 2019-08-27 17:12 | WPDONCPN ---
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 Status: Acute Assessment and Plan: added fentanyl patch and increased gabapentin for more pain control so pt can work with PT unable to receive RT to spine I added Celebrex and d/c meloxicam may need IV dex if not improved in 2 days Time Spent With Patient Time with patient: 15 - 25 minutes Review of Systems Review of Systems All systems reviewed & are unremarkable except as noted in HPI and below Constitutional Constitutional: Reports increased appetite ENT Reports Normal hearing present and Denies dysphagia Cardiovascular Cardiovascular: Reports no additional cardiovascular complaints Respiratory Respiratory: Reports no additional respiratory complaints Gastrointestinal Gastrointestinal: Reports no additional gastrointestinal complaints Genitourinary Genitourinary: Reports no additional male genitourinary complaints Musculoskeletal Musculoskeletal: Reports muscle weakness and Reports numbness Comments: legs weak Neurologic Reports abnormal gait and Reports weakness Exam Const: General: alert, awake, in distress and uncomfortable; No confusion Orientation/consciousness: patient oriented x3 and No confusion HENMT: Head: normal to inspection Face and sinus: normal facial exam Mouth: Yes Normal oral and palatal mucosa present Neck: Neck: supple Lymphatic: no lymphadenopathy noted Resp: Auscultation: diminished lung sounds Cardio: Rate: tachycardic GI: Inspection: normal to inspection Auscultation: normal bowel sounds Rectal Exam: deferred : General: Yes no CVA tenderness Back/Spine/Pelvis: Back: no CVA tenderness Thoracic/Lumbar Spine: pain with thoraco-lumbar ROM, paraspinal muscle tenderness and thoraco-lumbar ROM limited Neuro: General: patient oriented x3, CN's II-XI intact bilaterally, No confusion and Unable to assess gait Cranial nerves: Yes Normal hearing present Speech: normal speech Gait exam (Neuro): Unable to assess gait and Assisted gait required Motor exam (neuro): Abnormal motor strength present and Abnormal muscle tone present Extrem: General: edema Psych: Speech and movement: Clear speech present Affect: Anxious affect present Attitude: cooperative Thought process: Normal thought process present Objective Data Vital Signs Vital Signs: Vital Signs - 24 hr 08/26/19 22:00 08/27/19 06:00 08/27/19 08:00 Temperature 36.5 C 36.4 C Pulse Rate 93 86 86 Respiratory Rate 18 18 18 Blood Pressure 115/69 114/62 Pulse Oximetry 95 96 96 08/27/19 14:00 Temperature 36.2 C L Pulse Rate 83 Respiratory Rate 20 Blood Pressure 115/57 L Pulse Oximetry 97 Intake/Output Intake/Output: Intake & Output 08/24/19 08/25/19 08/26/19 08/27/19 23:59 23:59 23:59 23:59 Intake Total 720 / 720 1065 / 1065 1340 / 1340 960 / 960 Balance 720 / 720 1065 / 1065 1340 / 1340 960 / 960 Meds/Results Medications: Active Medications Generic Name Dose Route Start Last Admin Trade Name Freq PRN Reason Stop Dose Admin Hydrocodone Bitart/Acetaminophen 1 tab 08/26/19 22:00 [place] 10-325 Mg PO Q4H PRN Pain Rated 7-10 Hydrocodone Bitart/Acetaminophen 1 tab 08/27/19 10:35 [place] 10-325 Mg PO 09/02/19 23:59 Q6H PRN Pain Rated 7-10 Benzonatate 100 mg 08/20/19 13:55 08/25/19 08:39 Tessalon Perles PO 100 mg TID PRN Administration Cough Celecoxib 200 mg 08/27/19 17:00 Celebrex PO BIDWM JOSE Cyclobenzaprine HCl 10 mg 08/26/19 10:00 08/27/19 14:20 Flexeril PO Not Given BID JOSE Dexamethasone 4 mg 08/21/19 09:00 08/27/19 09:03 Dexamethasone Po PO
[2019-08-27] MEDS: CYCLOBENZAPRINE HCL 10 MG TABLET PO (17:16)
[2019-08-27] MEDS: CELECOXIB 200 MG CAPSULE PO (17:17)
[2019-08-27] MEDS: FENTANYL 12 MCG/HR PATCH TRANSDERM (18:16)
[2019-08-27] MEDS: GABAPENTIN 400 MG CAPSULE PO (20:27)
[2019-08-27 21:40] VITALS: BP 148/82; PULSE 84; RESP 20; TEMP 36.1; O2SAT 96
[2019-08-28 04:56] LABS: Basophils Absolute Auto 0.1 K/mm3 (0.0-0.1); Basophils Percent Auto 0.6 % (0.2-1.2); Eosinophils Absolute Auto 0.1 K/mm3 (0-0.3); Eosinophils Percent Auto 1.5 % (0-4.4); Hemoglobin 14.6 g/dL (14.0-18.0); Immature Granulocyte Absolute 0.14 K/mm3 (0.00-0.031); Immature Granulocyte Percent A 1.5 % (0-0.5); Lymphocytes Absolute Auto 1.64 K/mm3 (0.9-3.2); Lymphocytes Percent Auto 17.7 % (18.3-44.2); Mean Corpuscular HGB Conc 33.2 g/dl (32-36); Mean Corpuscular Volume 93.4 fl (80-100); Mean Platelet Volume 8.5 fl (7.4-10.4); Monocytes Absolute Auto 0.5 K/mm3 (0.1-0.6); Monocytes Percent Auto 5.3 % (2.6-8.5); Neutrophils Absolute Auto 6.8 K/mm3 (1.3-6.7); Neutrophils Percent Auto 73.4 % (45.5-73.1); Platelet Count Result 164 k/mm3 (150-375); Red Blood Count 4.71 M/mm3 (4.6-6.20); Red Cell Distribution Width 14.6 % (11.5-14.5); White Blood Count 9.2 K/mm3 (4.5-10.0)
[2019-08-28 05:10] LABS: Blood Urea Nitrogen 23 mg/dL (9-20); Calcium 9.2 mg/dL (8.4-10.2); Carbon Dioxide 30 mmol/L (22-30); Chloride 104 mmol/L (98-107); Estimated CRCL calculation 111 ml/min; Estimated Glomerular Filt Rate > 60; Glucose 163 mg/dL (75-110); Potassium 4.3 mmol/L (3.4-5.0); Sodium 137 mmol/L (137-145)
[2019-08-28] MEDS: GABAPENTIN 400 MG CAPSULE PO ×3 (05:20→20:57)
[2019-08-28 06:00] VITALS: BP 159/86; PULSE 85; RESP 16; TEMP 36.4; O2SAT 97
[2019-08-28 08:00] VITALS: PULSE 85; RESP 16; O2SAT 97
[2019-08-28] MEDS: lisinopriL 20 MG TABLET PO (09:13)
[2019-08-28] MEDS: DOCUSATE SODIUM 100 MG CAPSULE PO ×2 (09:13→17:24)
[2019-08-28] MEDS: CELECOXIB 200 MG CAPSULE PO ×2 (09:13→17:24)
[2019-08-28] MEDS: DEXAMETHASONE 4 MG TABLET PO (09:13)
[2019-08-28] MEDS: SENNOSIDES 8.6 MG TABLET PO ×2 (09:14→17:24)
[2019-08-28] MEDS: ENOXAPARIN 40 MG/0.4 ML SYRINGE SUB-Q (09:14)
[2019-08-28] MEDS: PANTOPRAZOLE 40 MG TABLET PO (09:14)
[2019-08-28] MEDS: CYCLOBENZAPRINE HCL 10 MG TABLET PO ×2 (09:17→17:26)
--- NOTE | 2019-08-28 11:27 | WPDNEURORHBP ---
Subjective Date/time seen: 08/28/19 11:27 Interval history: this 64-year-old gentleman with a known hepatocellular carcinoma is admitted after having had T2-T3 laminectomy for the metastatic disease to her actually to his T3 vertebra he is essentially is paraparetic and moving very slow progress otherwise denies any headache nausea vomiting chest pain shortness of breath he has been followed by his oncologist and the notes are reviewed Review of Systems Review of Systems: All systems reviewed & are unremarkable except as noted in HPI and below Exam Const: General: comfortable and no acute distress HENMT: General nose exam: Normal nares present Mouth: Yes moist mucous membranes Eyes: General: appearance normal, both eyes and all related structures Neck: Neck: supple and no JVD Resp: Effort & Inspection: normal respiratory effort Auscultation: clear to auscultation bilaterally Cardio: Rate: regular rate Rhythm: regular rhythm GI: GI Palp: Yes Soft to palpation Auscultation: normal bowel sounds Skin: General skin exam: normal color and no rashes or lesions noted Neuro: Other: patient is awake alert and well oriented time place and person the speech language functions are normal the upper extremity strength is fairly decent lower extremity is essentially paraparetic of moderately severe degree and the strength roughly is about 2+ over 5 with absent reflexes positive Babinski and needing assistance in all the activities of daily living Extrem: General: normal to inspection Psych: Mental Status: mental status grossly normal Objective Data Vital Signs Vital Signs: Vital Signs - 24 hr 08/27/19 14:00 08/27/19 21:40 08/28/19 06:00 Temperature 36.2 C L 36.1 C L 36.4 C L Pulse Rate 83 84 85 Respiratory Rate 20 20 16 Blood Pressure 115/57 L 148/82 H 159/86 H Pulse Oximetry 97 96 97 08/28/19 08:00 Temperature Pulse Rate 85 Respiratory Rate 16 Blood Pressure Pulse Oximetry 97 Intake/Output Intake/Output: Intake & Output 08/25/19 08/26/19 08/27/19 08/28/19 23:59 23:59 23:59 23:59 Intake Total 1065 1340 1440 240 Balance 1065 1340 1440 240 Meds/Results Medications: Active Medications Generic Name Dose Route Start Last Admin Trade Name Freq PRN Reason Stop Dose Admin Hydrocodone Bitart/Acetaminophen 1 tab 08/27/19 10:35 08/28/19 05:20 [place] 10-325 Mg PO 09/02/19 23:59 1 tab Q6H PRN Administration Pain Rated 7-10 Benzonatate 100 mg 08/20/19 13:55 08/25/19 08:39 Tessalon Perles PO 100 mg TID PRN Administration Cough Celecoxib 200 mg 08/27/19 17:00 08/28/19 09:13 Celebrex PO 200 mg BIDWM JOSE Administration Cyclobenzaprine HCl 10 mg 08/26/19 10:00 08/28/19 09:17 Flexeril PO 10 mg BID JOSE Administration Dexamethasone 4 mg 08/21/19 09:00 08/28/19 09:13 Dexamethasone Po PO 4 mg DAILY JOSE Administration Docusate Sodium 100 mg 08/20/19 17:00 08/28/19 09:13 Colace Capsule PO 100 mg BID JOSE Administration Enoxaparin Sodium 40 mg 08/21/19 09:00 08/28/19 09:14 Lovenox SUB-Q 40 mg DAILY JOSE Administration Fentanyl 1 mcg 08/27/19 18:00 08/27/19 18:16 Duragesic 12 Mcg Patch TRANSDERM 1 mcg Q72H JOSE Administration Gabapentin 400 mg 08/27/19 22:00 08/28/19 05:20 Neurontin PO 400 mg Q8HR JOSE Administration Lisinopril 20 mg 08/21/19 09:00 08/28/19 09:13 Prinivil PO 20 mg DAILY JOSE Administration Ondansetron HCl 4 mg 08/20/19 13:55 Zofran Odt PO Q8H PRN Nausea Pantoprazole Sodium 40 mg 08/21/19 09:00 08/28/19 09:14 Protonix PO 40 mg QAM JOSE Administration Senna 8.6 mg 08/20/19 17:00 08/28/19 09:14 Senokot Tablet PO 8.6 mg BID JOSE Administration Labs Labs: Laboratory Results - last 24 hr 08/28/19 08/28/19 04:50 04:50 WBC 9.2 RBC 4.71 Hgb 14.6 Hct 44.0 MCV 93.4 MCH 31.0 MCHC 33.2 RDW 14.6 H Plt Count 164
[2019-08-28 14:00] VITALS: BP 124/73; PULSE 86; RESP 18; TEMP 36.3; O2SAT 96
[2019-08-28 22:00] VITALS: BP 146/80; PULSE 81; RESP 18; TEMP 36.4; O2SAT 97
[2019-08-29 04:54] LABS: Hematocrit 44.9 % (42.0-52.0); Hemoglobin 14.9 g/dL (14.0-18.0); Mean Corpuscular HGB Conc 33.2 g/dl (32-36); Mean Corpuscular Hemoglobin 31.4 pg (26-34); Mean Corpuscular Volume 94.5 fl (80-100); Mean Platelet Volume 8.7 fl (7.4-10.4); Platelet Count Result 170 k/mm3 (150-375); Red Blood Count 4.75 M/mm3 (4.6-6.20); Red Cell Distribution Width 14.7 % (11.5-14.5); White Blood Count 8.3 K/mm3 (4.5-10.0)
[2019-08-29 05:07] LABS: Alanine Aminotransferase 99 U/L (4-50); Albumin Level 3.6 g/dL (3.5-5.1); Alkaline Phosphatase 217 U/L (38-126); Aspartate Amino Transferase 66 U/L (17-59); Blood Urea Nitrogen 24 mg/dL (9-20); Calcium 8.9 mg/dL (8.4-10.2); Carbon Dioxide 26 mmol/L (22-30); Chloride 104 mmol/L (98-107); Estimated CRCL calculation 111 ml/min; Estimated Glomerular Filt Rate > 60; Glucose 141 mg/dL (75-110); Sodium 136 mmol/L (137-145)
[2019-08-29] MEDS: GABAPENTIN 400 MG CAPSULE PO ×3 (05:55→19:51)
[2019-08-29 06:00] VITALS: BP 142/74; PULSE 86; RESP 18; TEMP 36.3; O2SAT 96
--- NOTE | 2019-08-29 09:09 | ECG_ITS ---
Measurements Intervals [place] Rate: 88 P: 39 [place]: 156 QRS: 3 QRSD: 105 T: 58 QT: 351 QTc: 425 Interpretive Statements SINUS RHYTHM POSSIBLE LEFT ATRIAL ENLARGEMENT BASELINE ARTIFACT- II, III, AVF BORDERLINE ECG Electronically Signed On 08-29-2019 10:15:38 CDT by Garfield Mohan D.O.
[2019-08-29] MEDS: PANTOPRAZOLE 40 MG TABLET PO (09:12)
[2019-08-29] MEDS: DEXAMETHASONE 4 MG TABLET PO (09:13)
[2019-08-29] MEDS: lisinopriL 20 MG TABLET PO (09:13)
[2019-08-29] MEDS: ENOXAPARIN 40 MG/0.4 ML SYRINGE SUB-Q (09:13)
[2019-08-29] MEDS: CELECOXIB 200 MG CAPSULE PO ×2 (09:13→17:12)
[2019-08-29] MEDS: CYCLOBENZAPRINE HCL 10 MG TABLET PO (09:16)
[2019-08-29 09:20] VITALS: BP 120/63; PULSE 86
--- NOTE | 2019-08-29 11:59 | WPDNEURORHBP ---
Subjective Date/time seen: 08/29/19 11:59 Interval history: This 64-year-old gentleman is here after having T2-T3 laminectomy for a T3 vertebral body metastatic disease has underlying hepatocellular carcinoma for which he is being treated and followed by the oncologist he also received radiation treatment prior to his lesions patient is not really doing well his paraparesis seems to be relatively worse and little less movement in the lower extremities however is still maintains the bladder or bowel function quite well from oncology is note was reviewed and appreciated he was taking about giving dexamethasone I will defer to him for the same On the other hand the patient denies any headache nausea vomiting chest pain shortness of breath fever chills or sore throat Review of Systems Review of Systems: All systems reviewed & are unremarkable except as noted in HPI and below Exam Const: General: comfortable and no acute distress HENMT: General nose exam: Normal nares present Mouth: Yes moist mucous membranes Eyes: General: appearance normal, both eyes and all related structures Neck: Neck: supple and no JVD Resp: Effort & Inspection: normal respiratory effort Auscultation: clear to auscultation bilaterally Cardio: Rate: regular rate Rhythm: regular rhythm GI: GI Palp: Yes Soft to palpation Auscultation: normal bowel sounds Skin: General skin exam: normal color and no rashes or lesions noted Neuro: Other: patient is awake alert Juliet to time place and person speech language functions are normal cranial nerve exam diez normal upper extremity strength is 4+ over 5 lower extremity strength is barely 2/5 with depressed reflexes and positive Babinski and sensory deficit up to the upper chest level Extrem: General: normal to inspection Psych: Mental Status: mental status grossly normal Objective Data Vital Signs Vital Signs: Vital Signs - 24 hr 08/28/19 14:00 08/28/19 22:00 08/29/19 06:00 Temperature 36.3 C L 36.4 C 36.3 C L Pulse Rate 86 81 86 Respiratory Rate 18 18 18 Blood Pressure 124/73 146/80 H 142/74 H Pulse Oximetry 96 97 96 08/29/19 09:20 Temperature Pulse Rate 86 Respiratory Rate Blood Pressure 120/63 Pulse Oximetry Intake/Output Intake/Output: Intake & Output 08/26/19 08/27/19 08/28/19 08/29/19 23:59 23:59 23:59 23:59 Intake Total 1340 1440 600 620 Balance 1340 1440 600 620 Meds/Results Medications: Active Medications Generic Name Dose Route Start Last Admin Trade Name Freq PRN Reason Stop Dose Admin Hydrocodone Bitart/Acetaminophen 1 tab 08/27/19 10:35 08/28/19 13:03 [place] 10-325 Mg PO 09/02/19 23:59 1 tab Q6H PRN Administration Pain Rated 7-10 Benzonatate 100 mg 08/20/19 13:55 08/25/19 08:39 Tessalon Perles PO 100 mg TID PRN Administration Cough Celecoxib 200 mg 08/27/19 17:00 08/29/19 09:13 Celebrex PO 200 mg BIDWM JOSE Administration Cyclobenzaprine HCl 10 mg 08/26/19 10:00 08/29/19 09:16 Flexeril PO 10 mg BID JOSE Administration Dexamethasone 4 mg 08/21/19 09:00 08/29/19 09:13 Dexamethasone Po PO 4 mg DAILY JOSE Administration Docusate Sodium 100 mg 08/20/19 17:00 08/29/19 09:09 Colace Capsule PO Not Given BID JOSE Enoxaparin Sodium 40 mg 08/21/19 09:00 08/29/19 09:13 Lovenox SUB-Q 40 mg DAILY JOSE Administration Fentanyl 1 mcg 08/27/19 18:00 08/27/19 18:16 Duragesic 12 Mcg Patch TRANSDERM 1 mcg Q72H JOSE Administration Gabapentin 400 mg 08/27/19 22:00 08/29/19 05:55 Neurontin PO 400 mg Q8HR JOSE Administration Lisinopril 20 mg 08/21/19 09:00 08/29/19 09:13 Prinivil PO 20 mg DAILY JOSE Administration Ondansetron HCl 4 mg 08/20/19 13:55 Zofran Odt PO Q8H PRN Nausea Pantoprazole Sodium 40 mg 08/21/19 09:00 08/29/19 09:12 Protonix PO 40 mg QAM JOSE Administration Senna 8.6 mg 08/20/19 17:00 08/29/19 09:08 Senokot T
--- NOTE | 2019-08-29 13:00 | WPDONCPN ---
Progress Note: A&P Assessment and Plan (1) Hepatocellular carcinoma: Code(s): C22.0 - Liver cell carcinoma Status: Acute Assessment and Plan: 1. Continue with Lenvima 20 mg daily 2. Labs and EKG are normal to stable without any effect on metabolism 3. 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 Pain better controlled but drowsy - med SE? 2. will change the flexeril to prn 3. consider adding methylphenidate vs increasing dex bid 4. continue with PT/OT 5. Ill see him this w/e Time Spent With Patient Time with patient: 15 - 25 minutes Review of Systems Constitutional Constitutional: Reports fatigue and Reports weakness ENT Reports as per HPI Cardiovascular Cardiovascular: Reports no additional cardiovascular complaints Respiratory Respiratory: Reports no additional respiratory complaints Gastrointestinal Gastrointestinal: Reports no additional gastrointestinal complaints Genitourinary Genitourinary: Reports no additional male genitourinary complaints Neurologic Reports abnormal gait and Reports numbness Exam Const: General: alert, awake, in distress and uncomfortable; No confusion Orientation/consciousness: patient oriented x3 and No confusion HENMT: Head: normal to inspection Face and sinus: normal facial exam Mouth: Yes Normal oral and palatal mucosa present Neck: Neck: supple Lymphatic: no lymphadenopathy noted Resp: Auscultation: diminished lung sounds Cardio: Rate: tachycardic GI: Inspection: normal to inspection Auscultation: normal bowel sounds Rectal Exam: deferred : General: Yes no CVA tenderness Back/Spine/Pelvis: Back: no CVA tenderness Thoracic/Lumbar Spine: pain with thoraco-lumbar ROM, paraspinal muscle tenderness and thoraco-lumbar ROM limited Neuro: General: patient oriented x3, CN's II-XI intact bilaterally, No confusion and Unable to assess gait Cranial nerves: Yes Normal hearing present Speech: normal speech Gait exam (Neuro): Unable to assess gait and Assisted gait required Motor exam (neuro): Abnormal motor strength present and Abnormal muscle tone present Other: parasthesia from waist down Extrem: General: edema Psych: Speech and movement: Clear speech present Attitude: cooperative Thought process: Normal thought process present Other: drowsy Objective Data Vital Signs Vital Signs: Vital Signs - 24 hr 08/28/19 14:00 08/28/19 22:00 08/29/19 06:00 Temperature 36.3 C L 36.4 C 36.3 C L Pulse Rate 86 81 86 Respiratory Rate 18 18 18 Blood Pressure 124/73 146/80 H 142/74 H Pulse Oximetry 96 97 96 08/29/19 09:20 Temperature Pulse Rate 86 Respiratory Rate Blood Pressure 120/63 Pulse Oximetry Intake/Output Intake/Output: Intake & Output 08/26/19 08/27/19 08/28/19 08/29/19 23:59 23:59 23:59 23:59 Intake Total 1340 / 1340 1440 / 1440 600 / 600 620 / 620 Balance 1340 / 1340 1440 / 1440 600 / 600 620 / 620 Meds/Results Medications: Active Medications Generic Name Dose Route Start Last Admin Trade Name Freq PRN Reason Stop Dose Admin Hydrocodone Bitart/Acetaminophen 1 tab 08/27/19 10:35 08/28/19 13:03 [place] 10-325 Mg PO 09/02/19 23:59 1 tab Q6H PRN Administration Pain Rated 7-10 Benzonatate 100 mg 08/20/19 13:55 08/25/19 08:39 Tessalon Perles PO 100 mg TID PRN Administration Cough Celecoxib 200 mg 08/27/19 17:00 08/29/19 09:13 Celebrex PO 200 mg BIDWM JOSE Administration Cyclobenzaprine HCl 10 mg 08/26/19 10:00 08/29/19 09:16 Flexeril PO 10 mg BID JOSE Administration Dexamethasone 4 mg 08/21/19 09:00 08/29/19 09:13 Dexamethasone Po PO 4 mg DAILY JOSE Administration Docusate Sodium 100 mg 08/20/19 17:00 08/29/19 09:09 Colace Capsule PO Not Given BID JOSE Enoxaparin Sodium 40 mg 08/21/19 09:00 08/29/19 09
[2019-08-29 14:00] VITALS: BP 144/70; PULSE 95; RESP 20; TEMP 36.8; O2SAT 97
[2019-08-29 19:53] VITALS: PULSE 95; RESP 20; O2SAT 97
[2019-08-29 22:00] VITALS: BP 152/88; PULSE 87; RESP 20; TEMP 36.6; O2SAT 96
[2019-08-30] MEDS: GABAPENTIN 400 MG CAPSULE PO (05:46)
[2019-08-30 06:00] VITALS: BP 148/64; PULSE 82; RESP 20; TEMP 36.3; O2SAT 97
[2019-08-30] MEDS: PANTOPRAZOLE 40 MG TABLET PO (08:28)
[2019-08-30] MEDS: ENOXAPARIN 40 MG/0.4 ML SYRINGE SUB-Q (08:29)
[2019-08-30] MEDS: lisinopriL 20 MG TABLET PO (08:29)
[2019-08-30] MEDS: CELECOXIB 200 MG CAPSULE PO ×2 (08:29→17:29)
[2019-08-30] MEDS: BENZONATATE 100 MG CAPSULE PO ×2 (08:31→21:03)
[2019-08-30] MEDS: DEXAMETHASONE 4 MG TABLET PO (12:29)
--- NOTE | 2019-08-30 13:14 | WPDONCPN ---
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 Still groggy from pain medications 2. Increase methylphenidate to bid and cut back on gabapentin a bit 3. continue with PT/OT Time Spent With Patient Time with patient: 15 - 25 minutes Review of Systems Constitutional Constitutional: Reports fatigue and Reports weakness Eyes Eyes: Reports no additional eye complaints ENT Reports system reviewed and no additional complaints, except as documented Cardiovascular Cardiovascular: Reports no additional cardiovascular complaints Respiratory Respiratory: Reports no additional respiratory complaints Gastrointestinal Gastrointestinal: Reports no additional gastrointestinal complaints Genitourinary Genitourinary: Reports no additional male genitourinary complaints Musculoskeletal Musculoskeletal: Reports back pain and Reports myalgias Neurologic Reports abnormal gait Psychiatric Psychiatric: Reports depression Exam Const: General: alert, awake, in distress and uncomfortable; No confusion Orientation/consciousness: patient oriented x3 and No confusion HENMT: Head: normal to inspection Face and sinus: normal facial exam Mouth: Yes Normal oral and palatal mucosa present Neck: Neck: supple Lymphatic: no lymphadenopathy noted Resp: Auscultation: diminished lung sounds Cardio: Rate: tachycardic GI: Inspection: normal to inspection Auscultation: normal bowel sounds Rectal Exam: deferred : General: Yes no CVA tenderness Back/Spine/Pelvis: Back: no CVA tenderness Thoracic/Lumbar Spine: pain with thoraco-lumbar ROM, paraspinal muscle tenderness and thoraco-lumbar ROM limited Neuro: General: patient oriented x3, CN's II-XI intact bilaterally, No confusion and Unable to assess gait Cranial nerves: Yes Normal hearing present Speech: normal speech Gait exam (Neuro): Unable to assess gait and Assisted gait required Motor exam (neuro): Abnormal motor strength present and Abnormal muscle tone present Other: parasthesia from waist down Extrem: General: edema Psych: Speech and movement: Clear speech present Affect: Sad affect present Attitude: cooperative Thought process: Normal thought process present Other: drowsy Objective Data Vital Signs Vital Signs: Vital Signs - 24 hr 08/29/19 14:00 08/29/19 19:53 08/29/19 22:00 Temperature 36.8 C 36.6 C Pulse Rate 95 95 87 Respiratory Rate 20 20 20 Blood Pressure 144/70 H 152/88 H Pulse Oximetry 97 97 96 08/30/19 06:00 Temperature 36.3 C L Pulse Rate 82 Respiratory Rate 20 Blood Pressure 148/64 H Pulse Oximetry 97 Intake/Output Intake/Output: Intake & Output 08/27/19 08/28/19 08/29/19 08/30/19 23:59 23:59 23:59 23:59 Intake Total 1440 / 1440 600 / 600 1360 / 1360 720 / 720 Balance 1440 / 1440 600 / 600 1360 / 1360 720 / 720 Meds/Results Medications: Active Medications Generic Name Dose Route Start Last Admin Trade Name Freq PRN Reason Stop Dose Admin Hydrocodone Bitart/Acetaminophen 1 tab 08/27/19 10:35 08/28/19 13:03 [place] 10-325 Mg PO 09/02/19 23:59 1 tab Q6H PRN Administration Pain Rated 7-10 Benzonatate 100 mg 08/20/19 13:55 08/30/19 08:31 Tessalon Perles PO 100 mg TID PRN Administration Cough Celecoxib 200 mg 08/27/19 17:00 08/30/19 08:29 Celebrex PO 200 mg BIDWM JOSE Administration Cyclobenzaprine HCl 10 mg 08/29/19 13:07 Flexeril PO BID PRN Muscle Spasm Dexamethasone 4 mg 08/30/19 12:00 08/30/19 12:29 Dexamethasone Po PO 4 mg DAILY@1200 JOSE Administration Docusate Sodium 100 mg 08/20/19 17:00 08/30/19 08:30 Colace Capsule PO Not Given
[2019-08-30] MEDS: GABAPENTIN 300 MG CAPSULE PO ×2 (13:54→21:03)
[2019-08-30 14:00] VITALS: BP 114/59; PULSE 96; RESP 18; TEMP 36.7; O2SAT 98
--- NOTE | 2019-08-30 15:43 | WPDNEURORHBP ---
Subjective Date/time seen: 08/30/19 15:43 Interval history: the patient is a 64-year-old gentleman who has underlying hepatocellular carcinoma with metastases to the T3 vertebral body and is status post T2-T3 laminectomy has been complaining of some speech difficulty in the previous 24 hours and has been sleepy otherwise he denies any headache nausea vomiting chest pain or shortness of breath he has been followed by the oncologist and the notes were reviewed however I am concerned whether not the patient has metastatic disease to his brain I am hoping not but it will require a brain MRI with and without contrast to make sure he does not and that might change our course of treatment depending upon how the oncologist field Review of Systems Review of Systems: All systems reviewed & are unremarkable except as noted in HPI and below Exam Const: General: comfortable and no acute distress HENMT: General nose exam: Normal nares present Mouth: Yes moist mucous membranes Eyes: General: appearance normal, both eyes and all related structures Neck: Neck: supple and no JVD Resp: Effort & Inspection: normal respiratory effort Auscultation: clear to auscultation bilaterally Cardio: Rate: regular rate Rhythm: regular rhythm GI: GI Palp: Yes Soft to palpation Auscultation: normal bowel sounds Skin: General skin exam: normal color and no rashes or lesions noted Neuro: Other: patient is awake alert has a dysarthria/aphasia and significant paraparesis in seems like he is slowly declining I am hoping is a drug effect otherwise I would like to rule out brain metastases because we know that he does have vertebral metastases and in possibly a candidate for having a generalized metastases from the hepatocellular carcinoma Extrem: General: normal to inspection Psych: Mental Status: mental status grossly normal Objective Data Vital Signs Vital Signs: Vital Signs - 24 hr 08/29/19 19:53 08/29/19 22:00 08/30/19 06:00 Temperature 36.6 C 36.3 C L Pulse Rate 95 87 82 Respiratory Rate 20 20 20 Blood Pressure 152/88 H 148/64 H Pulse Oximetry 97 96 97 Intake/Output Intake/Output: Intake & Output 08/27/19 08/28/19 08/29/19 08/30/19 23:59 23:59 23:59 23:59 Intake Total 0503 872 3094 720 Balance 2081 089 5867 720 Meds/Results Medications: Active Medications Generic Name Dose Route Start Last Admin Trade Name Freq PRN Reason Stop Dose Admin Hydrocodone Bitart/Acetaminophen 1 tab 08/27/19 10:35 08/28/19 13:03 [place] 10-325 Mg PO 09/02/19 23:59 1 tab Q6H PRN Administration Pain Rated 7-10 Benzonatate 100 mg 08/20/19 13:55 08/30/19 08:31 Tessalon Perles PO 100 mg TID PRN Administration Cough Celecoxib 200 mg 08/27/19 17:00 08/30/19 08:29 Celebrex PO 200 mg BIDWM JOSE Administration Cyclobenzaprine HCl 10 mg 08/29/19 13:07 Flexeril PO BID PRN Muscle Spasm Dexamethasone 4 mg 08/30/19 12:00 08/30/19 12:29 Dexamethasone Po PO 4 mg DAILY@1200 [facility] Administration Docusate Sodium 100 mg 08/20/19 17:00 08/30/19 08:30 Colace Capsule PO Not Given BID [facility] Enoxaparin Sodium 40 mg 08/21/19 09:00 08/30/19 08:29 Lovenox SUB-Q 40 mg DAILY JOSE Administration Fentanyl 1 mcg 08/27/19 18:00 08/27/19 18:16 Durages[place] 12 Mcg Patch TRANSDERM 1 mcg Q72H JOSE Administration Gabapentin 300 mg 08/30/19 14:00 08/30/19 13:54 Neurontin PO 300 mg Q8HR JOSE Administration Lisinopril 20 mg 08/21/19 09:00 08/30/19 08:29 Prinivil PO 20 mg DAILY JOSE Administration Methylphenidate HCl 5 mg 08/30/19 14:20 08/30/19 13:58 Ritalin PO 5 mg 0800,1300 JOSE Administration Ondansetron HCl 4 mg 08/20/19 13:55 Zofran Odt PO Q8H PRN Nausea Pantoprazole Sodium 40 mg 08/21/19 09:00 08/30/19 08:28 Protonix PO 40 mg QAM JOSE Administration Senna 8.6 mg 08/20/19 17:00 08/30/19 08:30 Senokot Tablet PO
[2019-08-30] MEDS: FENTANYL 12 MCG/HR PATCH TRANSDERM (17:53)
--- NOTE | 2019-08-30 18:36 | PC.NURSE ---
08/30/19 Fentyl patch 12mcg administered at 1755 08/30/19 as ordered at 1800. Pharmacist states original order is worded incorrectly (12mcg and 1mcg in the order line and should be timed at 0900 next dose. Pharmacist corrected and generated a new mar entry, non-administered, duplicate.
--- NOTE | 2019-08-30 18:49 | PC.NURSE ---
2277 Dr. Jarvis ordered MRI routine. No answer at MRI office this evening. MRI form filled out with a few questions marked to discuss with MRI staff.
[2019-08-30 21:12] LABS: Glucose Point of Care 112 (65-105)
[2019-08-30 22:00] VITALS: BP 117/79; PULSE 98; RESP 19; TEMP 36.2; O2SAT 94
[2019-08-31 06:00] VITALS: BP 165/84; PULSE 81; RESP 18; TEMP 36.1; O2SAT 98
[2019-08-31] MEDS: GABAPENTIN 300 MG CAPSULE PO ×3 (06:13→21:29)
[2019-08-31] MEDS: BENZONATATE 100 MG CAPSULE PO (06:21)
[2019-08-31] MEDS: DOCUSATE SODIUM 100 MG CAPSULE PO ×2 (09:17→17:16)
[2019-08-31] MEDS: CELECOXIB 200 MG CAPSULE PO ×2 (09:17→17:16)
[2019-08-31] MEDS: ENOXAPARIN 40 MG/0.4 ML SYRINGE SUB-Q (09:17)
[2019-08-31] MEDS: PANTOPRAZOLE 40 MG TABLET PO (09:18)
[2019-08-31] MEDS: SENNOSIDES 8.6 MG TABLET PO ×2 (09:18→17:16)
[2019-08-31] MEDS: lisinopriL 20 MG TABLET PO (09:18)
[2019-08-31] MEDS: DEXAMETHASONE 4 MG TABLET PO (13:10)
--- NOTE | 2019-08-31 13:15 | WPDONCPN ---
Progress Note: A&P Assessment and Plan (1) Hepatocellular carcinoma: Code(s): C22.0 - Liver cell carcinoma Status: Acute Assessment and Plan: 1. continue with Lenvima at 20 mg daily 2. Recheck CMP and CBC in AM 3. 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 Pt improving with his pain and being more alert and awake 2. Continue with his current analgesic regimen 3.continue with methylphenidate 5 bid since that is making him more alert 4. Continue with Dex 4 mg at 1300 daily for now. Will cut back in the next few days 5. Continue with PT/OT Time Spent With Patient Time with patient: less than 15 minutes Review of Systems Constitutional Constitutional: Reports weakness Eyes Eyes: Reports no additional eye complaints ENT Reports system reviewed and no additional complaints, except as documented Cardiovascular Cardiovascular: Reports no additional cardiovascular complaints Respiratory Respiratory: Reports no additional respiratory complaints Gastrointestinal Gastrointestinal: Reports no additional gastrointestinal complaints Genitourinary Genitourinary: Reports no additional male genitourinary complaints Neurologic Reports abnormal gait and Reports confusion Psychiatric Psychiatric: Reports depression Exam Const: General: comfortable, alert, awake and in distress; No confusion Orientation/consciousness: patient oriented x3 and No confusion HENMT: Head: normal to inspection Face and sinus: normal facial exam Mouth: Yes Normal oral and palatal mucosa present and Yes moist mucous membranes Eyes: General: appearance normal, both eyes and all related structures Pupils: Equal, round and reactive pupils present EOM: EOMs intact bilaterally Neck: Neck: supple and no JVD Lymphatic: no lymphadenopathy noted and lymphadenopathy not noted Resp: Effort & Inspection: normal respiratory effort Auscultation: clear to auscultation bilaterally Cardio: Rate: regular rate Rhythm: regular rhythm GI: Inspection: normal to inspection Auscultation: normal bowel sounds Rectal Exam: deferred : General: Yes no CVA tenderness Back/Spine/Pelvis: Back: no CVA tenderness Thoracic/Lumbar Spine: pain with thoraco-lumbar ROM, paraspinal muscle tenderness and thoraco-lumbar ROM limited Neuro: General: patient oriented x3, CN's II-XI intact bilaterally, No confusion and Unable to assess gait Cranial nerves: Yes Normal hearing present Speech: normal speech Gait exam (Neuro): Unable to assess gait and Assisted gait required Motor exam (neuro): Abnormal motor strength present and Abnormal muscle tone present Other: parasthesia from waist down Extrem: General: normal to inspection Psych: Speech and movement: Clear speech present Affect: Sad affect present Attitude: cooperative Thought process: Normal thought process present Other: more awake and engaging Objective Data Vital Signs Vital Signs: Vital Signs - 24 hr 08/30/19 14:00 08/30/19 22:00 08/31/19 06:00 Temperature 36.7 C 36.2 C L 36.1 C L Pulse Rate 96 98 81 Respiratory Rate 18 18 Blood Pressure 114/59 L 117/79 165/84 H Pulse Oximetry 98 94 98 Intake/Output Intake/Output: Intake & Output 08/28/19 08/29/19 08/30/19 08/31/19 23:59 23:59 23:59 23:59 Intake Total 600 / 600 1360 / 1360 1200 / 1200 900 / 900 Balance 600 / 600 1360 / 1360 1200 / 1200 900 / 900 Meds/Results Medications: Active Medications Generic Name Dose Route Start Last Admin Trade Name Freq PRN Reason Stop Dose Admin Hydrocodone Bitart/Acetaminophen 1 tab 08/27/19 10:35 08/28/19 13:03 [place] 10-325 Mg PO 09/02/19 23:59 1 tab Q6H PRN Administration Pain Rated 7-10 Benzonatate 100 mg 08/20/19 13:55 08/31/19 06:21 Tessalon Perles PO 100 mg TID PRN Administration Cough
[2019-08-31 14:00] VITALS: BP 121/71; PULSE 88; RESP 18; TEMP 36.3; O2SAT 98
--- NOTE | 2019-08-31 15:54 | WPDNEURORHBP ---
Subjective Date/time seen: 08/31/19 15:54 Interval history: home this 64-year-old gentleman is here with the diagnosis of spinal cord compression /status post T2-T3 laminectomy for the metastatic disease which is most likely from the hepatocellular carcinoma. He is on oncology medications as it has been available for him to come from home and is being followed by the oncologist the notes were reviewed the patient was relatively encephalopathic ex for which a brain MRI was done with and without contrast which does not reveal any evidence of metastatic disease to the brain however is relatively little confused which is most likely the effect of the combination of the medication he is on including fentanyl patch and methylphenidate along with gabapentin At this point over we will simply observe him and see which way he goes his going to have the complete blood count CBC tomorrow as per Oncology Review of Systems Review of Systems: All systems reviewed & are unremarkable except as noted in HPI and below Exam Const: General: comfortable and no acute distress HENMT: General nose exam: Normal nares present Mouth: Yes moist mucous membranes Eyes: General: appearance normal, both eyes and all related structures Neck: Neck: supple and no JVD Resp: Effort & Inspection: normal respiratory effort Auscultation: clear to auscultation bilaterally Cardio: Rate: regular rate Rhythm: regular rhythm GI: GI Palp: Yes Soft to palpation Auscultation: normal bowel sounds Skin: General skin exam: normal color and no rashes or lesions noted Neuro: General: gait normal Speech: normal speech Other: patient is awake alert well oriented in time place and person but little encephalopathic and seems to be confused but definitely more alert and then yesterday when I had to do the MRI for him which is negative he does remain paraparetic with the evidence of neuropathy and also evidence of a myelopathy essentially not a whole lot improvement in his lower extremity weakness Likewise he has a sensory deficit in the lower extremities all the way going up to his upper chest related to T2-T3 lesion Extrem: General: normal to inspection Psych: Mental Status: mental status grossly normal Affect: normal affect Objective Data Vital Signs Vital Signs: Vital Signs - 24 hr 08/30/19 22:00 08/31/19 06:00 08/31/19 14:00 Temperature 36.2 C L 36.1 C L 36.3 C L Pulse Rate 98 81 88 Respiratory Rate 19 18 18 Blood Pressure 117/79 165/84 H 121/71 Pulse Oximetry 94 98 98 Intake/Output Intake/Output: Intake & Output 08/28/19 08/29/19 08/30/19 08/31/19 23:59 23:59 23:59 23:59 Intake Total 600 1360 1200 1140 Balance 600 1360 1200 1140 Meds/Results Medications: Active Medications Generic Name Dose Route Start Last Admin Trade Name Freq PRN Reason Stop Dose Admin Hydrocodone Bitart/Acetaminophen 1 tab 08/27/19 10:35 08/28/19 13:03 [place] 10-325 Mg PO 09/02/19 23:59 1 tab Q6H PRN Administration Pain Rated 7-10 Benzonatate 100 mg 08/20/19 13:55 08/31/19 06:21 Tessalon Perles PO 100 mg TID PRN Administration Cough Celecoxib 200 mg 08/27/19 17:00 08/31/19 09:17 Celebrex PO 200 mg BIDWM JOSE Administration Cyclobenzaprine HCl 10 mg 08/29/19 13:07 Flexeril PO BID PRN Muscle Spasm Dexamethasone 4 mg 08/30/19 12:00 08/31/19 13:10 Dexamethasone Po PO 4 mg DAILY@1200 JOSE Administration Docusate Sodium 100 mg 08/20/19 17:00 08/31/19 09:17 Colace Capsule PO 100 mg BID JOSE Administration Enoxaparin Sodium 40 mg 08/21/19 09:00 08/31/19 09:17 Lovenox SUB-Q 40 mg DAILY JOSE Administration Fentanyl 12 mcg 08/30/19 09:00 08/30/19 18:35 Duragesic 12 Mcg Patch TRANSDERM Not Given Q72H JOSE Gabapentin 300 mg 08/30/19 14:00 08/31/19 13:11 Neurontin PO 300 mg Q8HR JOSE Administration Guaifenesin/Dextromethorphan 10 ml 08/31/19 15:33 Robitussin-Dm Syr
[2019-08-31 21:29] VITALS: BP 121/70; PULSE 86; RESP 22; TEMP 36.3; O2SAT 95
[2019-09-01 04:43] LABS: Hematocrit 43.7 % (42.0-52.0); Hemoglobin 14.7 g/dL (14.0-18.0); Mean Corpuscular HGB Conc 33.6 g/dl (32-36); Mean Corpuscular Hemoglobin 31.5 pg (26-34); Mean Corpuscular Volume 93.6 fl (80-100); Mean Platelet Volume 8.9 fl (7.4-10.4); Platelet Count Result 188 k/mm3 (150-375); Red Blood Count 4.67 M/mm3 (4.6-6.20); Red Cell Distribution Width 15.5 % (11.5-14.5); White Blood Count 7.6 K/mm3 (4.5-10.0)
[2019-09-01 05:05] LABS: Alanine Aminotransferase 90 U/L (4-50); Albumin Level 3.5 g/dL (3.5-5.1); Alkaline Phosphatase 200 U/L (38-126); Aspartate Amino Transferase 60 U/L (17-59); Bilirubin,Total 0.8 mg/dL (0.2-1.3); Blood Urea Nitrogen 15 mg/dL (9-20); Calcium 8.4 mg/dL (8.4-10.2); Carbon Dioxide 28 mmol/L (22-30); Chloride 106 mmol/L (98-107); Estimated CRCL calculation 131 ml/min; Estimated Glomerular Filt Rate > 60; Glucose 136 mg/dL (75-110); Potassium 4.3 mmol/L (3.4-5.0); Sodium 136 mmol/L (137-145)
[2019-09-01] MEDS: GABAPENTIN 300 MG CAPSULE PO ×3 (05:54→20:53)
[2019-09-01] MEDS: GUAIFENESIN/DEXTROMETHORPHAN 10 ML UDC PO (05:55)
[2019-09-01] MEDS: BENZONATATE 100 MG CAPSULE PO ×2 (05:57→13:05)
[2019-09-01 06:00] VITALS: BP 146/80; PULSE 77; RESP 16; TEMP 36.1; O2SAT 97
[2019-09-01] MEDS: ENOXAPARIN 40 MG/0.4 ML SYRINGE SUB-Q (08:32)
[2019-09-01] MEDS: PANTOPRAZOLE 40 MG TABLET PO (08:33)
[2019-09-01] MEDS: lisinopriL 20 MG TABLET PO (08:33)
[2019-09-01 08:35] VITALS: BP 135/71; PULSE 78
[2019-09-01] MEDS: CELECOXIB 200 MG CAPSULE PO ×2 (08:35→17:17)
--- NOTE | 2019-09-01 12:02 | WPDNEURORHBP ---
Subjective Date/time seen: S/P T2-T3 laminectomy for metastatic [id number]/23/20 12:02 Review of Systems Review of Systems: All systems reviewed & are unremarkable except as noted in HPI and below Exam Const: General: cooperative, comfortable and no acute distress HENMT: Head: normal to inspection Ears: hearing grossly normal bilaterally General nose exam: Normal external nose present and No nasal discharge present Face and sinus: normal facial exam Mouth: Yes Normal oral and palatal mucosa present Eyes: General: appearance normal, both eyes and all related structures Neck: Neck: full ROM and no lymphadenopathy Resp: Auscultation: clear to auscultation bilaterally Cardio: Rate: regular rate Rhythm: regular rhythm GI: Percussion: Yes normal to percussion Auscultation: normal bowel sounds Skin: General skin exam: no rashes or lesions noted Neuro: General: patient oriented x3 Cranial nerves: Yes CN's II-XII intact bilaterally, Yes Equal, round and reactive pupils present, Yes Bilaterally intact EOM present, Yes Nystagmus not present, Yes Normal facial strength present, Yes Midline tongue present and Yes Symmetric palate elevation present Cognition (Neuro): normal cognition Speech: normal speech Gait exam (Neuro): Unable to assess gait Motor exam (neuro): 5/5 motor strength present throughout (paretic) Deep tendon reflexes (DTR's): Right triceps reflex intensity grade: 0, Left triceps reflex intensity grade: 0, Rt Biceps (C5, C6): 0, Left biceps reflex intensity grade: 0, Right brachioradialis reflex intensity grade: 0, Left brachioradialis reflex intensity grade: 0, Right patellar reflex intensity grade: 0, Left patellar reflex intensity grade: 0, Right ankle reflex intensity grade: 0 and Left ankle reflex intensity grade: 0 Plantar Reflex Responses: upgoing (positive Babinski): bilateral Psych: Appearance: grossly normal (fair) Objective Data Vital Signs Vital Signs: Vital Signs - 24 hr 08/31/19 14:00 08/31/19 21:29 09/01/19 06:00 Temperature 36.3 C L 36.3 C L 36.1 C L Pulse Rate 88 86 77 Respiratory Rate 18 22 H 16 Blood Pressure 121/71 121/70 146/80 H Pulse Oximetry 98 95 97 09/01/19 08:35 Temperature Pulse Rate 78 Respiratory Rate Blood Pressure 135/71 Pulse Oximetry Intake/Output Intake/Output: Intake & Output 08/29/19 08/30/19 08/31/19 09/01/19 23:59 23:59 23:59 23:59 Intake Total 1360 1200 1380 540 Balance 1360 1200 1380 540 Meds/Results Medications: Active Medications Generic Name Dose Route Start Last Admin Trade Name Freq PRN Reason Stop Dose Admin Hydrocodone Bitart/Acetaminophen 1 tab 08/27/19 10:35 08/28/19 13:03 [place] 10-325 Mg PO 09/02/19 23:59 1 tab Q6H PRN Administration Pain Rated 7-10 Benzonatate 100 mg 08/20/19 13:55 09/01/19 05:57 Tessalon Perles PO 100 mg TID PRN Administration Cough Celecoxib 200 mg 08/27/19 17:00 09/01/19 08:35 Celebrex PO 200 mg BIDWM JOSE Administration Cyclobenzaprine HCl 10 mg 08/29/19 13:07 Flexeril PO BID PRN Muscle Spasm Dexamethasone 4 mg 08/30/19 12:00 08/31/19 13:10 Dexamethasone Po PO 4 mg DAILY@1200 JOSE Administration Docusate Sodium 100 mg 08/20/19 17:00 08/31/19 17:16 Colace Capsule PO 100 mg BID JOSE Administration Enoxaparin Sodium 40 mg 08/21/19 09:00 09/01/19 08:32 Lovenox SUB-Q 40 mg DAILY JOSE Administration Fentanyl 12 mcg 08/30/19 09:00 08/30/19 18:35 Duragesic 12 Mcg Patch TRANSDERM Not Given Q72H JOSE Gabapentin 300 mg 08/30/19 14:00 09/01/19 05:54 Neurontin PO 300 mg Q8HR JOSE Administration Guaifenesin/Dextromethorphan 10 ml 08/31/19 15:33 09/01/19 05:55 Robitussin-Dm Syrup PO 10 ml Q4H PRN Administration Cough Lisinopril 20 mg 08/21/19 09:00 09/01/19 08:33 Prinivil PO 20 mg DAILY JOSE Administration Methylphenidate HCl 5 mg 08/30/19 14:20 09/01/19 08:40 Ritalin
[2019-09-01] MEDS: DEXAMETHASONE 4 MG TABLET PO (12:05)
[2019-09-01 14:00] VITALS: BP 132/64; PULSE 80; RESP 18; TEMP 36.3; O2SAT 97
[2019-09-01 22:00] VITALS: BP 120/69; PULSE 86; RESP 18; TEMP 36; O2SAT 94
[2019-09-02 06:00] VITALS: BP 155/86; PULSE 77; RESP 18; TEMP 36.2; O2SAT 94
[2019-09-02] MEDS: GABAPENTIN 300 MG CAPSULE PO ×3 (06:25→21:20)
[2019-09-02] MEDS: PANTOPRAZOLE 40 MG TABLET PO (09:29)
[2019-09-02] MEDS: BENZONATATE 100 MG CAPSULE PO (09:29)
[2019-09-02] MEDS: lisinopriL 20 MG TABLET PO (09:29)
[2019-09-02] MEDS: CELECOXIB 200 MG CAPSULE PO ×2 (09:30→17:10)
[2019-09-02] MEDS: ENOXAPARIN 40 MG/0.4 ML SYRINGE SUB-Q (09:30)
[2019-09-02] MEDS: FENTANYL 12 MCG/HR PATCH TRANSDERM (09:30)
--- NOTE | 2019-09-02 11:03 | WPDNEURORHBP ---
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 He denies any fever chills sore throat nausea vomiting headache. Review of Systems Review of Systems: All systems reviewed & are unremarkable except as noted in HPI and below Exam Const: General: comfortable and no acute distress HENMT: General nose exam: Normal nares present Mouth: Yes moist mucous membranes Eyes: General: appearance normal, both eyes and all related structures Neck: Neck: supple and no JVD Resp: Effort & Inspection: normal respiratory effort Auscultation: clear to auscultation bilaterally Cardio: Rate: regular rate Rhythm: regular rhythm GI: GI Palp: Yes Soft to palpation Auscultation: normal bowel sounds Skin: General skin exam: normal color and no rashes or lesions noted Neuro: Other: The patient is awake alert and well oriented times person person is much more alert cooperative sitting in the team conference answering questions appropriately and asking questions appropriately not any distress is speech and language functions are normal cranial exam diez normal upper extremity strength is 4+ over 5 lower extremity stand stent remains roughly about 2+ over 5 with depressed reflexes equivocal Babinski sign and the basically maximally dependent for all even doing the rolling in the bed side to side and needing Eunice lift for him to be transferred from bed to the chair which he will need post discharge Extrem: General: normal to inspection Psych: Mental Status: mental status grossly normal Objective Data Vital Signs Vital Signs: Vital Signs - 24 hr 09/01/19 14:00 09/01/19 22:00 09/02/19 06:00 Temperature 36.3 C L 36.0 C L 36.2 C L Pulse Rate 80 86 77 Respiratory Rate 18 18 18 Blood Pressure 132/64 120/69 155/86 H Pulse Oximetry 97 94 94 Intake/Output Intake/Output: Intake & Output 08/30/19 08/31/19 09/01/19 09/02/19 23:59 23:59 23:59 23:59 Intake Total 1200 1380 1020 240 Balance 1200 1380 1020 240 Meds/Results Medications: Active Medications Generic Name Dose Route Start Last Admin Trade Name Freq PRN Reason Stop Dose Admin Hydrocodone Bitart/Acetaminophen 1 tab 08/27/19 10:35 08/28/19 13:03 [place] 10-325 Mg PO 09/02/19 23:59 1 tab Q6H PRN Administration Pain Rated 7-10 Benzonatate 100 mg 08/20/19 13:55 09/02/19 09:29 Tessalon Perles PO 100 mg TID PRN Administration Cough Celecoxib 200 mg 08/27/19 17:00 09/02/19 09:30 Celebrex PO 200 mg BIDWM JOSE Administration Cyclobenzaprine HCl 10 mg 08/29/19 13:07 Flexeril PO BID PRN Muscle Spasm Dexamethasone 4 mg 08/30/19 12:00 09/01/19 12:05 Dexamethasone Po PO 4 mg DAILY@1200 JOSE Administration Docusate Sodium 100 mg 08/20/19 17:00 09/02/19 09:30 Colace Capsule PO Not Given BID [facility] Enoxaparin Sodium 40 mg 08/21/19 09:00 09/02/19 09:30 Lovenox SUB-Q 40 mg DAILY JOSE Administration Fentanyl 12 mcg 08/30/19 09:00 09/02/19 09:30 Duragesic 12 Mcg Patch TRANSDERM 12 mcg Q72H JOSE Administration Gabapentin 300 mg 08/30/19 14:00 09/02/19 06:25 Neurontin PO 300 mg Q8HR JOSE Administration Guaifenesin/Dextromethorphan 10 ml 08/31/19 15:33 09/01/19 05:55 Robitussin-Dm Syrup PO 10 ml Q4H PRN Administration Cough Lisinopril 20 mg 08/21/19 09:00 09/02/19 09:29 Prinivil PO 20 mg DAILY JOSE Administration Methylphenidate HCl 5 mg 08/30/19 14:20 09/02/19 09:28 Ritalin PO 5 mg 0800,1300 [facility] Adm
--- NOTE | 2019-09-02 11:31 | PCDIET ---
Nutrition Follow-Up Complete: Nutrition Diagnosis: Suboptimal oral intake related to decreased appetite as evidenced by meal refusal at breakfast. Nutrition Goal: Patient to consume 50% of meals or more + supplements Goal met. Patient consuming 75-100% of most meals on regular diet with [employer] BID. Recommend continuing present diet/supplement with same goals. Last recorded weight is 94.2 kg. Recommend obtaining new weight. Bowel Motility: +BM on 09/01/19. Labs Reviewed: Glu (136), Na (136) Meds Noted: Dexamethasone, Colace, Fentanyl, Ritalin, Protonix, Senna Additional Notes: Back incision well-approximated. Buttock with abrasion. No pressure ulcers reported. Nutrition Monitoring and Evaluation: Follow up in 7 days.
[2019-09-02] MEDS: DEXAMETHASONE 4 MG TABLET PO (13:56)
[2019-09-02 14:00] VITALS: BP 110/58; PULSE 90; RESP 18; TEMP 36.4; O2SAT 96
--- NOTE | 2019-09-02 18:02 | WPDONCPN ---
Progress Note: A&P Assessment and Plan (1) Hepatocellular carcinoma: Code(s): C22.0 - Liver cell carcinoma Status: Acute Assessment and Plan: 1. Recent CMP shows a mild reduction in the LFTs indicating response to oral therapy 2. Will check AFP on 3. 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 Still has paraplegia with some movement 2. Continue with PT/OT 3. Possible radiation to the spinal mets in the near future depending on improvement in leg strength 4. Analgesic regimen the same with very good pain control Time Spent With Patient Time with patient: 15 - 25 minutes Review of Systems Constitutional Constitutional: Denies fatigue, Denies lethargy and Reports weakness Eyes Eyes: Reports no additional eye complaints ENT Reports system reviewed and no additional complaints, except as documented Cardiovascular Cardiovascular: Reports no additional cardiovascular complaints Respiratory Respiratory: Reports no additional respiratory complaints Gastrointestinal Gastrointestinal: Reports no additional gastrointestinal complaints Genitourinary Genitourinary: Reports no additional male genitourinary complaints Musculoskeletal Musculoskeletal: Reports back pain and Reports stiffness Neurologic Reports abnormal gait and Reports numbness Psychiatric Psychiatric: Reports no additional psychiatric complaints Exam Const: General: comfortable, alert, awake, in distress and confusion Orientation/consciousness: patient oriented x3 and confusion HENMT: Head: normal to inspection Face and sinus: normal facial exam Mouth: Yes Normal oral and palatal mucosa present and Yes moist mucous membranes Eyes: General: appearance normal, both eyes and all related structures Pupils: Equal, round and reactive pupils present EOM: EOMs intact bilaterally Neck: Neck: supple and no JVD Lymphatic: no lymphadenopathy noted and lymphadenopathy not noted Resp: Effort & Inspection: normal respiratory effort Auscultation: clear to auscultation bilaterally Cardio: Rate: regular rate Rhythm: regular rhythm GI: Inspection: normal to inspection Auscultation: normal bowel sounds Rectal Exam: deferred : General: Yes no CVA tenderness Back/Spine/Pelvis: Back: no CVA tenderness Thoracic/Lumbar Spine: pain with thoraco-lumbar ROM, paraspinal muscle tenderness and thoraco-lumbar ROM limited Skin: General skin exam: no rashes or lesions noted Neuro: General: patient oriented x3, CN's II-XI intact bilaterally, confusion and Unable to assess gait Cranial nerves: Yes Equal, round and reactive pupils present and Yes Normal hearing present Cognition (Neuro): normal cognition Speech: normal speech Gait exam (Neuro): Unable to assess gait and Assisted gait required Motor exam (neuro): Abnormal motor strength present and Abnormal muscle tone present Other: parasthesia from waist down Extrem: General: normal to inspection and no edema Psych: Speech and movement: Clear speech present Affect: Sad affect present Attitude: cooperative Thought process: Normal thought process present Other: alert and awake and not groggy at all Objective Data Vital Signs Vital Signs: Vital Signs - 24 hr 09/01/19 22:00 09/02/19 06:00 09/02/19 14:00 Temperature 36.0 C L 36.2 C L 36.4 C Pulse Rate 86 77 90 Respiratory Rate 18 18 18 Blood Pressure 120/69 155/86 H 110/58 L Pulse Oximetry 94 94 96 Intake/Output Intake/Output: Intake & Output 08/30/19 08/31/19 09/01/19 09/02/19 23:59 23:59 23:59 23:59 Intake Total 1200 / 1200 1380 / 1380 1020 / 1020 480 / 480 Balance 1200 / 1200 1380 / 1380 1020 / 1020 480 / 480 Meds/Results Medications: Active Medications Generic Name Dose Route Start Last Admin Trade Name Freq PRN Reason Stop Dose Admin Hydroco
[2019-09-02] MEDS: GUAIFENESIN/DEXTROMETHORPHAN 10 ML UDC PO (21:20)
[2019-09-02 22:00] VITALS: BP 127/70; PULSE 83; RESP 18; TEMP 36.4; O2SAT 96
[2019-09-03] MEDS: GABAPENTIN 300 MG CAPSULE PO ×3 (05:44→21:04)
[2019-09-03 06:00] VITALS: BP 117/65; PULSE 88; RESP 19; TEMP 36.8; O2SAT 95
[2019-09-03] MEDS: ENOXAPARIN 40 MG/0.4 ML SYRINGE SUB-Q (09:08)
[2019-09-03] MEDS: DOCUSATE SODIUM 100 MG CAPSULE PO ×2 (09:09→16:53)
[2019-09-03] MEDS: lisinopriL 20 MG TABLET PO (09:09)
[2019-09-03] MEDS: PANTOPRAZOLE 40 MG TABLET PO (09:10)
[2019-09-03] MEDS: SENNOSIDES 8.6 MG TABLET PO ×2 (09:10→16:53)
[2019-09-03] MEDS: CELECOXIB 200 MG CAPSULE PO ×2 (09:10→16:53)
[2019-09-03 09:15] VITALS: PULSE 88; RESP 18
--- NOTE | 2019-09-03 12:29 | WPDNEURORHBP ---
Subjective Date/time seen: 09/03/19 12:29 Interval history: this 64-year-old gentleman is here post laminectomy at T2 and T3 due to metastatic lesion from hepatocellular carcinoma the patient is paraparetic and is not doing as well as he would like to and likewise myself he complains of being tired and fatigued which of course is related to combination the drugs he is receiving and also of course the nature of the metastatic disease on the other hand he is afebrile denies any fever chills sore throat headache nausea vomiting chest pain or shortness of breath Review of Systems Review of Systems: All systems reviewed & are unremarkable except as noted in HPI and below Exam Const: General: comfortable and no acute distress HENMT: General nose exam: Normal nares present Mouth: Yes moist mucous membranes Eyes: General: appearance normal, both eyes and all related structures Neck: Neck: supple and no JVD Resp: Effort & Inspection: normal respiratory effort Auscultation: clear to auscultation bilaterally Cardio: Rate: regular rate Rhythm: regular rhythm GI: GI Palp: Yes Soft to palpation Auscultation: normal bowel sounds Skin: General skin exam: normal color and no rashes or lesions noted Neuro: Other: patient is awake and alert well oriented in time present person does not have any lateralizing deficit in the upper extremities but clearly has moderately severe paraparesis where he is really unable to move his legs against the gravity reflexes diminished does have evidence of myelopathy with equivocal Babinski bilaterally a needing assistance all the activities of daily living Extrem: General: normal to inspection Psych: Mental Status: mental status grossly normal Objective Data Vital Signs Vital Signs: Vital Signs - 24 hr 09/02/19 14:00 09/02/19 22:00 09/03/19 06:00 Temperature 36.4 C 36.4 C 36.8 C Pulse Rate 90 83 88 Respiratory Rate 18 18 19 Blood Pressure 110/58 L 127/70 117/65 Pulse Oximetry 96 96 95 09/03/19 09:15 Temperature Pulse Rate 88 Respiratory Rate 18 Blood Pressure Pulse Oximetry Intake/Output Intake/Output: Intake & Output 08/31/19 09/01/19 09/02/19 09/03/19 23:59 23:59 23:59 23:59 Intake Total 1380 1020 960 360 Balance 1380 1020 960 360 Meds/Results Medications: Active Medications Generic Name Dose Route Start Last Admin Trade Name Freq PRN Reason Stop Dose Admin Benzonatate 100 mg 08/20/19 13:55 09/02/19 09:29 Tessalon Perles PO 100 mg TID PRN Administration Cough Celecoxib 200 mg 08/27/19 17:00 09/03/19 09:10 Celebrex PO 200 mg BIDWM JOSE Administration Cyclobenzaprine HCl 10 mg 08/29/19 13:07 Flexeril PO BID PRN Muscle Spasm Dexamethasone 4 mg 08/30/19 12:00 09/02/19 13:56 Dexamethasone Po PO 4 mg DAILY@1200 [facility] Administration Docusate Sodium 100 mg 08/20/19 17:00 09/03/19 09:09 Colace Capsule PO 100 mg BID [facility] Administration Enoxaparin Sodium 40 mg 08/21/19 09:00 09/03/19 09:08 Lovenox SUB-Q 40 mg DAILY JOSE Administration Fentanyl 12 mcg 08/30/19 09:00 09/02/19 09:30 Duragesic 12 Mcg Patch TRANSDERM 12 mcg Q72H JOSE Administration Gabapentin 300 mg 08/30/19 14:00 09/03/19 05:44 Neurontin PO 300 mg Q8HR JOSE Administration Guaifenesin/Dextromethorphan 10 ml 08/31/19 15:33 09/02/19 21:20 Robitussin-Dm Syrup PO 10 ml Q4H PRN Administration Cough Lisinopril 20 mg 08/21/19 09:00 09/03/19 09:09 Prinivil PO 20 mg DAILY JOSE Administration Methylphenidate HCl 5 mg 08/30/19 14:20 09/03/19 09:07 Ritalin PO 5 mg 0800,1300 JOSE Administration Ondansetron HCl 4 mg 08/20/19 13:55 Zofran Odt PO Q8H PRN Nausea Pantoprazole Sodium 40 mg 08/21/19 09:00 09/03/19 09:10 Protonix PO 40 mg QAM JOSE Administration Senna 8.6 mg 08/20/19 17:00 09/03/19 09:10 Senokot Tablet PO 8.6 mg BID JOSE Administra
[2019-09-03] MEDS: DEXAMETHASONE 4 MG TABLET PO (13:10)
[2019-09-03 14:00] VITALS: BP 112/69; PULSE 93; RESP 20; TEMP 36.1; O2SAT 98
[2019-09-03 21:49] VITALS: BP 131/74; PULSE 93; RESP 20; TEMP 35.9; O2SAT 95
[2019-09-04 04:50] LABS: Basophils Absolute Auto 0.1 K/mm3 (0.0-0.1); Basophils Percent Auto 0.9 % (0.2-1.2); Eosinophils Percent Auto 0.5 % (0-4.4); Hematocrit 44.9 % (42.0-52.0); Hemoglobin 15.2 g/dL (14.0-18.0); Immature Granulocyte Absolute 0.09 K/mm3 (0.00-0.031); Immature Granulocyte Percent A 1.1 % (0-0.5); Lymphocytes Percent Auto 23.4 % (18.3-44.2); Mean Corpuscular HGB Conc 33.9 g/dl (32-36); Mean Corpuscular Hemoglobin 31.6 pg (26-34); Mean Corpuscular Volume 93.3 fl (80-100); Mean Platelet Volume 8.5 fl (7.4-10.4); Monocytes Absolute Auto 0.4 K/mm3 (0.1-0.6); Monocytes Percent Auto 4.9 % (2.6-8.5); Neutrophils Absolute Auto 5.6 K/mm3 (1.3-6.7); Neutrophils Percent Auto 69.2 % (45.5-73.1); Platelet Count Result 167 k/mm3 (150-375); Red Blood Count 4.81 M/mm3 (4.6-6.20); Red Cell Distribution Width 15.7 % (11.5-14.5); White Blood Count 8.1 K/mm3 (4.5-10.0)
[2019-09-04 05:00] LABS: Blood Urea Nitrogen 15 mg/dL (9-20); Calcium 8.9 mg/dL (8.4-10.2); Carbon Dioxide 28 mmol/L (22-30); Chloride 106 mmol/L (98-107); Estimated CRCL calculation 131 ml/min; Estimated Glomerular Filt Rate > 60; Glucose 124 mg/dL (75-110); Potassium 4.8 mmol/L (3.4-5.0); Sodium 136 mmol/L (137-145)
[2019-09-04 06:00] VITALS: BP 145/77; PULSE 76; RESP 20; TEMP 36.5; O2SAT 99
[2019-09-04] MEDS: GABAPENTIN 300 MG CAPSULE PO ×3 (06:05→21:08)
[2019-09-04] MEDS: ENOXAPARIN 40 MG/0.4 ML SYRINGE SUB-Q (08:30)
[2019-09-04] MEDS: DOCUSATE SODIUM 100 MG CAPSULE PO ×2 (08:30→16:57)
[2019-09-04] MEDS: SENNOSIDES 8.6 MG TABLET PO ×2 (08:30→16:57)
[2019-09-04] MEDS: lisinopriL 20 MG TABLET PO (08:31)
[2019-09-04] MEDS: PANTOPRAZOLE 40 MG TABLET PO (08:32)
[2019-09-04] MEDS: CELECOXIB 200 MG CAPSULE PO ×2 (08:32→16:56)
--- NOTE | 2019-09-04 11:37 | WPDNEURORHBP ---
Subjective Date/time seen: 09/04/19 11:37 Interval history: this 64-year-old gentleman is here after having a laminectomy at T2-T3 for the metastatic disease from the hepatocellular carcinoma he is paraparetic is stable however very slowly moving he denies any fever headache nausea vomiting chest pain shortness of breath has engage in therapy and cooperative Review of Systems Review of Systems: All systems reviewed & are unremarkable except as noted in HPI and below Exam Const: General: comfortable and no acute distress HENMT: General nose exam: Normal nares present Mouth: Yes moist mucous membranes Eyes: General: appearance normal, both eyes and all related structures Neck: Neck: supple and no JVD Resp: Effort & Inspection: normal respiratory effort Auscultation: clear to auscultation bilaterally Cardio: Rate: regular rate Rhythm: regular rhythm GI: GI Palp: Yes Soft to palpation Auscultation: normal bowel sounds Skin: General skin exam: normal color and no rashes or lesions noted Neuro: Other: patient is awake alert and well oriented time placed person has normal speech and language function normal cranial examination near normal strength in the upper extremities however clearly significantly paraparetic with not a lot change in his reflexes over the evidence of the myelopathy from the thoracic area medicine metastatic disease Extrem: General: normal to inspection Psych: Mental Status: mental status grossly normal Objective Data Vital Signs Vital Signs: Vital Signs - 24 hr 09/03/19 14:00 09/03/19 21:49 09/04/19 06:00 Temperature 36.1 C L 35.9 C L 36.5 C Pulse Rate 93 93 76 Respiratory Rate 20 20 20 Blood Pressure 112/69 131/74 145/77 H Pulse Oximetry 98 95 99 Intake/Output Intake/Output: Intake & Output 09/01/19 09/02/19 09/03/19 09/04/19 23:59 23:59 23:59 23:59 Intake Total 1020 960 840 240 Balance 1020 960 840 240 Meds/Results Medications: Active Medications Generic Name Dose Route Start Last Admin Trade Name Freq PRN Reason Stop Dose Admin Benzonatate 100 mg 08/20/19 13:55 09/02/19 09:29 Tessalon Perles PO 100 mg TID PRN Administration Cough Celecoxib 200 mg 08/27/19 17:00 09/04/19 08:32 Celebrex PO 200 mg BIDWM JOSE Administration Cyclobenzaprine HCl 10 mg 08/29/19 13:07 Flexeril PO BID PRN Muscle Spasm Dexamethasone 4 mg 08/30/19 12:00 09/03/19 13:10 Dexamethasone Po PO 4 mg DAILY@1200 [facility] Administration Docusate Sodium 100 mg 08/20/19 17:00 09/04/19 08:30 Colace Capsule PO 100 mg BID JOSE Administration Enoxaparin Sodium 40 mg 08/21/19 09:00 09/04/19 08:30 Lovenox SUB-Q 40 mg DAILY [facility] Administration Fentanyl 12 mcg 08/30/19 09:00 09/02/19 09:30 Duragesic 12 Mcg Patch TRANSDERM 12 mcg Q72H JOSE Administration Gabapentin 300 mg 08/30/19 14:00 09/04/19 06:05 Neurontin PO 300 mg Q8HR JOSE Administration Guaifenesin/Dextromethorphan 10 ml 08/31/19 15:33 09/02/19 21:20 Robitussin-Dm Syrup PO 10 ml Q4H PRN Administration Cough Lisinopril 20 mg 08/21/19 09:00 09/04/19 08:31 Prinivil PO 20 mg DAILY JOSE Administration Methylphenidate HCl 5 mg 08/30/19 14:20 09/04/19 08:33 Ritalin PO 5 mg 0800,1300 [facility] Administration Ondansetron HCl 4 mg 08/20/19 13:55 Zofran Odt PO Q8H PRN Nausea Pantoprazole Sodium 40 mg 08/21/19 09:00 09/04/19 08:32 Protonix PO 40 mg QAM JOSE Administration Senna 8.6 mg 08/20/19 17:00 09/04/19 08:30 Senokot Tablet PO 8.6 mg BID JOSE Administration Radiology Results: ITS Impressions Brain MRI 08/31/19 08:26 IMPRESSION: 1. No acute intracranial abnormality. No evidence for metastatic disease. 2: Chronic age-related findings. Labs Labs: Laboratory Results - last 24 hr 09/04/19 09/04/19 04:42 04:42 WBC 8.1 RBC 4.81 Hgb 15.2 Hct 44.9 MCV 93.3
[2019-09-04] MEDS: DEXAMETHASONE 4 MG TABLET PO (12:58)
[2019-09-04 13:00] VITALS: PULSE 76; RESP 18
[2019-09-04 14:00] VITALS: BP 119/62; PULSE 87; RESP 18; TEMP 36.6; O2SAT 97
[2019-09-04 14:38] VITALS: BMI 11.0
[2019-09-04 22:00] VITALS: BP 128/69; PULSE 84; RESP 20; TEMP 36.4; O2SAT 97
[2019-09-05] MEDS: GABAPENTIN 300 MG CAPSULE PO ×3 (05:43→20:39)
[2019-09-05 06:00] VITALS: BP 138/75; PULSE 87; RESP 18; TEMP 36.5; O2SAT 95
[2019-09-05] MEDS: FENTANYL 12 MCG/HR PATCH TRANSDERM (08:38)
[2019-09-05] MEDS: lisinopriL 20 MG TABLET PO (08:39)
[2019-09-05] MEDS: ENOXAPARIN 40 MG/0.4 ML SYRINGE SUB-Q (08:39)
[2019-09-05] MEDS: CELECOXIB 200 MG CAPSULE PO ×2 (08:39→16:31)
[2019-09-05] MEDS: PANTOPRAZOLE 40 MG TABLET PO (08:39)
[2019-09-05] MEDS: DOCUSATE SODIUM 100 MG CAPSULE PO (08:40)
[2019-09-05] MEDS: SENNOSIDES 8.6 MG TABLET PO (08:40)
--- NOTE | 2019-09-05 11:04 | WPDONCPN ---
Progress Note: A&P Assessment and Plan (1) Hepatocellular carcinoma: Code(s): C22.0 - Liver cell carcinoma Status: Acute Assessment and Plan: 1. Somewhat confused -- check NH3 level and LFTs 2. Continue with Lenvima 20 mg daily 3. 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 continue with PT/OT 2. Ill will cut back on Dex and try to taper off this medication over the next week or so 3. Ideally, he would need to finish radiation for his T3 mass but logistics interfere with this treatment 4. For pain, I would continue with current regimen. If he has more breakthrough, then will add hydrocodone or tramadol Time Spent With Patient Time with patient: 15 - 25 minutes Review of Systems Constitutional Constitutional: Reports difficulty sleeping, Reports fatigue and Reports weakness Eyes Eyes: Reports no additional eye complaints ENT Reports system reviewed and no additional complaints, except as documented Cardiovascular Cardiovascular: Reports chest pain Respiratory Respiratory: Reports no additional respiratory complaints Gastrointestinal Gastrointestinal: Reports no additional gastrointestinal complaints Genitourinary Genitourinary: Reports no additional male genitourinary complaints Musculoskeletal Musculoskeletal: Reports myalgias Integumentary/Breasts Skin/Breast: Reports system reviewed and no additional complaints, except as docu Neurologic Reports abnormal gait, Reports confusion and Reports numbness Exam Const: General: comfortable, alert, awake, in distress and confusion Orientation/consciousness: patient oriented x3 and confusion HENMT: Head: normal to inspection Face and sinus: normal facial exam Mouth: Yes Normal oral and palatal mucosa present and Yes moist mucous membranes Eyes: General: appearance normal, both eyes and all related structures Pupils: Equal, round and reactive pupils present EOM: EOMs intact bilaterally Neck: Neck: supple and no JVD Lymphatic: no lymphadenopathy noted and lymphadenopathy not noted Resp: Effort & Inspection: normal respiratory effort Auscultation: clear to auscultation bilaterally Cardio: Rate: regular rate Rhythm: regular rhythm GI: Inspection: normal to inspection Auscultation: normal bowel sounds Rectal Exam: deferred : General: Yes no CVA tenderness Back/Spine/Pelvis: Back: no CVA tenderness Thoracic/Lumbar Spine: pain with thoraco-lumbar ROM, paraspinal muscle tenderness and thoraco-lumbar ROM limited Skin: General skin exam: no rashes or lesions noted Neuro: General: patient oriented x3, CN's II-XI intact bilaterally, No deep tendon reflexes 2+ bilaterally, confusion and Unable to assess gait Cranial nerves: Yes Equal, round and reactive pupils present and Yes Normal hearing present Speech: normal speech Gait exam (Neuro): Unable to assess gait and Assisted gait required Motor exam (neuro): Abnormal motor strength present and Abnormal muscle tone present Other: parasthesia from waist down Extrem: General: normal to inspection and no edema Psych: Speech and movement: Clear speech present Affect: Sad affect present Attitude: cooperative Thought process: Normal thought process present Other: alert and awake and not groggy at all Objective Data Vital Signs Vital Signs: Vital Signs - 24 hr 09/04/19 13:00 09/04/19 14:00 09/04/19 22:00 Temperature 36.6 C 36.4 C Pulse Rate 76 87 84 Respiratory Rate 18 18 20 Blood Pressure 119/62 128/69 Pulse Oximetry 97 97 09/05/19 06:00 Temperature 36.5 C Pulse Rate 87 Respiratory Rate 18 Blood Pressure 138/75 Pulse Oximetry 95 Intake/Output Intake/Output: Intake & Output 09/02/19 09/03/19 09/04/19 09/05/19 23:59 23:59 23:59 23:59 Intake Total 960 / 960 840 / 840 840 / 840 240 / 240 Balance 960 / 960 840 / 840 84
[2019-09-05] MEDS: DEXAMETHASONE 2 MG TABLET PO (12:20)
[2019-09-05 14:00] VITALS: BP 129/87; PULSE 102; RESP 20; TEMP 36.6; O2SAT 98
--- NOTE | 2019-09-05 16:09 | WPDNEURORHBP ---
Subjective Date/time seen: 09/05/19 16:09 Interval history: patient's mental status fluctuates at the time of my examination earlier today he is at his baseline denies any headache nausea vomiting chest pain shortness of breath fever chills or sore throat his paraparesis remains the same he is here basically in the rehab floor because of spinal cord compression for which she went through T2-T3 laminectomy and prior to that had radiation done also has been followed by the oncologist and the notes were reviewed and concurred his dexamethasone is being tapered Patient denies any headache nausea vomiting fevers chills sore throat Review of Systems Review of Systems: All systems reviewed & are unremarkable except as noted in HPI and below Functional Status Transfers Ability Ability to Transfer In/Out of Chair: Total Assistance X 2 Exam Const: General: comfortable and no acute distress HENMT: General nose exam: Normal nares present Mouth: Yes moist mucous membranes Eyes: General: appearance normal, both eyes and all related structures Neck: Neck: supple and no JVD Resp: Effort & Inspection: normal respiratory effort Auscultation: clear to auscultation bilaterally Cardio: Rate: regular rate Rhythm: regular rhythm GI: GI Palp: Yes Soft to palpation Auscultation: normal bowel sounds Skin: General skin exam: normal color and no rashes or lesions noted Neuro: Other: patient is awake alert and well oriented in time place and person with affective short-term memory and clearly has rather dense paraparesis as documented before with occasional bladder or bowel dysfunction which is not really terrible at this time but needs to be observed overall picture is being stable Extrem: General: normal to inspection Psych: Other: mild encephalopathy Objective Data Vital Signs Vital Signs: Vital Signs - 24 hr 09/04/19 22:00 09/05/19 06:00 09/05/19 14:00 Temperature 36.4 C 36.5 C 36.6 C Pulse Rate 84 87 102 H Respiratory Rate 20 18 20 Blood Pressure 128/69 138/75 129/87 Pulse Oximetry 97 95 98 Intake/Output Intake/Output: Intake & Output 09/02/19 09/03/19 09/04/19 09/05/19 23:59 23:59 23:59 23:59 Intake Total 960 840 840 480 Balance 960 840 840 480 Meds/Results Medications: Active Medications Generic Name Dose Route Start Last Admin Trade Name Freq PRN Reason Stop Dose Admin Benzonatate 100 mg 08/20/19 13:55 09/02/19 09:29 Tessalon Perles PO 100 mg TID PRN Administration Cough Celecoxib 200 mg 08/27/19 17:00 09/05/19 08:39 Celebrex PO 200 mg BIDWM JOSE Administration Cyclobenzaprine HCl 10 mg 08/29/19 13:07 Flexeril PO BID PRN Muscle Spasm Dexamethasone 2 mg 09/05/19 12:00 09/05/19 12:20 Dexamethasone Po PO 2 mg DAILY@1200 [facility] Administration Docusate Sodium 100 mg 08/20/19 17:00 09/05/19 08:40 Colace Capsule PO 100 mg BID [facility] Administration Enoxaparin Sodium 40 mg 08/21/19 09:00 09/05/19 08:39 Lovenox SUB-Q 40 mg DAILY [facility] Administration Fentanyl 12 mcg 08/30/19 09:00 09/05/19 08:38 Duragesic 12 Mcg Patch TRANSDERM 12 mcg Q72H JOSE Administration Gabapentin 300 mg 08/30/19 14:00 09/05/19 13:46 Neurontin PO 300 mg Q8HR JOSE Administration Guaifenesin/Dextromethorphan 10 ml 08/31/19 15:33 09/02/19 21:20 Robitussin-Dm Syrup PO 10 ml Q4H PRN Administration Cough Lisinopril 20 mg 08/21/19 09:00 09/05/19 08:39 Prinivil PO 20 mg DAILY JOSE Administration Methylphenidate HCl 5 mg 08/30/19 14:20 09/05/19 12:20 Ritalin PO 5 mg 0800,1300 JOSE Administration Ondansetron HCl 4 mg 08/20/19 13:55 Zofran Odt PO Q8H PRN Nausea Pantoprazole Sodium 40 mg 08/21/19 09:00 09/05/19 08:39 Protonix PO 40 mg QAM [facility] Administration Senna 8.6 mg 08/20/19 17:00 09/05/19 08:40 Senokot Tablet PO 8.6 mg BID [facility] Administration Radiology Results: I
[2019-09-05 22:00] VITALS: BP 149/83; PULSE 86; RESP 16; TEMP 36.6; O2SAT 95
[2019-09-06 05:14] LABS: Ammonia 45 umol/L (9-30)
[2019-09-06 05:18] LABS: Alanine Aminotransferase 79 U/L (4-50); Albumin Level 3.4 g/dL (3.5-5.1); Alkaline Phosphatase 178 U/L (38-126); Aspartate Amino Transferase 49 U/L (17-59); Bilirubin,Total 0.8 mg/dL (0.2-1.3); Blood Urea Nitrogen 18 mg/dL (9-20); Calcium 8.7 mg/dL (8.4-10.2); Carbon Dioxide 28 mmol/L (22-30); Chloride 105 mmol/L (98-107); Estimated CRCL calculation 131 ml/min; Estimated Glomerular Filt Rate > 60; Glucose 128 mg/dL (75-110); Sodium 136 mmol/L (137-145)
[2019-09-06 06:00] VITALS: BP 149/78; PULSE 74; RESP 18; TEMP 36.6; O2SAT 97
[2019-09-06] MEDS: GABAPENTIN 300 MG CAPSULE PO ×3 (06:40→22:11)
[2019-09-06] MEDS: ENOXAPARIN 40 MG/0.4 ML SYRINGE SUB-Q (08:38)
[2019-09-06] MEDS: CELECOXIB 200 MG CAPSULE PO ×2 (08:38→16:52)
[2019-09-06] MEDS: PANTOPRAZOLE 40 MG TABLET PO (08:38)
[2019-09-06] MEDS: lisinopriL 20 MG TABLET PO (08:38)
[2019-09-06 10:00] VITALS: BMI 11.0
--- NOTE | 2019-09-06 13:05 | WPDNEURORHBP ---
Subjective Date/time seen: spinal crd compression with S/p T2-T3 laminectomy and Ekghdpchz18/28/20 13:05 Review of Systems Review of Systems: All systems reviewed & are unremarkable except as noted in HPI and below Functional Status Transfers Ability Ability to Transfer In/Out of Chair: Total Assistance X 2 Exam Const: General: comfortable and no acute distress HENMT: Ears: hearing grossly normal bilaterally General nose exam: Normal external nose present Face and sinus: normal facial exam Mouth: Yes Normal oral and palatal mucosa present Eyes: General: appearance normal, both eyes and all related structures Neck: Neck: normal visual inspection and no lymphadenopathy Resp: Effort & Inspection: normal respiratory effort and able to speak in complete sentences Cardio: Rate: regular rate Rhythm: regular rhythm GI: Percussion: Yes normal to percussion Auscultation: normal bowel sounds Skin: General skin exam: no rashes or lesions noted Neuro: General: patient oriented x3 and CN's II-XI intact bilaterally Cranial nerves: Yes Equal, round and reactive pupils present, Yes Bilaterally intact EOM present, Yes Nystagmus not present, Yes Normal facial strength present and Yes Midline tongue present Speech: normal speech Motor exam (neuro): 5/5 motor strength present throughout (paraparetic) Deep tendon reflexes (DTR's): Right patellar reflex intensity grade: 2+, Left patellar reflex intensity grade: 2+, Right ankle reflex intensity grade: 2+ and Left ankle reflex intensity grade: 2+ Plantar Reflex Responses: upgoing (positive Babinski): bilateral Objective Data Vital Signs Vital Signs: Vital Signs - 24 hr 09/05/19 14:00 09/05/19 22:00 09/06/19 06:00 Temperature 36.6 C 36.6 C 36.6 C Pulse Rate 102 H 86 74 Respiratory Rate 20 16 18 Blood Pressure 129/87 149/83 H 149/78 H Pulse Oximetry 98 95 97 Intake/Output Intake/Output: Intake & Output 09/03/19 09/04/19 09/05/19 09/06/19 23:59 23:59 23:59 23:59 Intake Total 840 840 720 420 Balance 840 840 720 420 Meds/Results Medications: Active Medications Generic Name Dose Route Start Last Admin Trade Name Freq PRN Reason Stop Dose Admin Benzonatate 100 mg 08/20/19 13:55 03/24/20 09:29 Tessalon Perles PO 100 mg TID PRN Administration Cough Celecoxib 200 mg 08/27/19 17:00 09/06/19 08:38 Celebrex PO 200 mg BIDWM JOSE Administration Cyclobenzaprine HCl 10 mg 08/29/19 13:07 Flexeril PO BID PRN Muscle Spasm Dexamethasone 2 mg 09/05/19 12:00 09/05/19 12:20 Dexamethasone Po PO 2 mg DAILY@1200 [facility] Administration Docusate Sodium 100 mg 08/20/19 17:00 09/06/19 08:39 Colace Capsule PO Not Given BID [facility] Enoxaparin Sodium 40 mg 08/21/19 09:00 09/06/19 08:38 Lovenox SUB-Q 40 mg DAILY [facility] Administration Fentanyl 12 mcg 08/30/19 09:00 09/05/19 08:38 Duragesic 12 Mcg Patch TRANSDERM 12 mcg Q72H [facility] Administration Gabapentin 300 mg 08/30/19 14:00 09/06/19 06:40 Neurontin PO 300 mg Q8HR JOSE Administration Guaifenesin/Dextromethorphan 10 ml 08/31/19 15:33 09/02/19 21:20 Robitussin-Dm Syrup PO 10 ml Q4H PRN Administration Cough Lisinopril 20 mg 08/21/19 09:00 09/06/19 08:38 Prinivil PO 20 mg DAILY [facility] Administration Methylphenidate HCl 5 mg 08/30/19 14:20 09/06/19 08:38 Ritalin PO 5 mg 0800,1300 JO[facility] Administration Ondansetron HCl 4 mg 08/20/19 13:55 Zofran Odt PO Q8H PRN Nausea Pantoprazole Sodium 40 mg 08/21/19 09:00 09/06/19 08:38 Protonix PO 40 mg QAM [facility] Administration Senna 8.6 mg 08/20/19 17:00 09/06/19 08:39 Senokot Tablet PO Not Given BID [facility] Radiology Results: ITS Impressions Brain MRI 08/31/19 08:26 IMPRESSION: 1. No acute intracranial abnormality. No evidence for metastatic disease. 2: Chronic age-related findings. Labs Labs: Laboratory Resul
[2019-09-06] MEDS: DEXAMETHASONE 2 MG TABLET PO (13:09)
[2019-09-06 14:00] VITALS: BP 116/63; PULSE 86; RESP 18; TEMP 36.3; O2SAT 97
--- NOTE | 2019-09-06 16:51 | PC.NURSE ---
pt refused stool softener/laxatives this shift. stated he didn't want them today. updated.
[2019-09-06 22:00] VITALS: BP 130/88; PULSE 88; RESP 18; TEMP 36.6; O2SAT 98
[2019-09-06] MEDS: BENZONATATE 100 MG CAPSULE PO (22:13)
[2019-09-07 06:00] VITALS: BP 124/78; PULSE 80; RESP 18; TEMP 36.4; O2SAT 97
[2019-09-07] MEDS: GABAPENTIN 300 MG CAPSULE PO ×3 (06:29→20:39)
[2019-09-07 08:00] VITALS: PULSE 80; RESP 18; O2SAT 97
[2019-09-07] MEDS: CELECOXIB 200 MG CAPSULE PO ×2 (08:50→17:28)
[2019-09-07] MEDS: ENOXAPARIN 40 MG/0.4 ML SYRINGE SUB-Q (08:50)
[2019-09-07] MEDS: DOCUSATE SODIUM 100 MG CAPSULE PO ×2 (08:50→17:28)
[2019-09-07] MEDS: lisinopriL 20 MG TABLET PO (08:50)
[2019-09-07] MEDS: SENNOSIDES 8.6 MG TABLET PO ×2 (08:51→17:27)
[2019-09-07] MEDS: PANTOPRAZOLE 40 MG TABLET PO (08:51)
[2019-09-07] MEDS: DEXAMETHASONE 2 MG TABLET PO (13:33)
[2019-09-07 14:00] VITALS: BP 140/70; PULSE 91; RESP 20; TEMP 36.4; O2SAT 95
[2019-09-07 22:00] VITALS: BP 137/77; PULSE 94; RESP 19; TEMP 36.4; O2SAT 97
[2019-09-08] MEDS: GABAPENTIN 300 MG CAPSULE PO ×3 (05:22→21:04)
[2019-09-08 06:00] VITALS: BP 164/94; PULSE 84; RESP 19; TEMP 36.6; O2SAT 92
[2019-09-08 08:30] VITALS: BMI 11.0
[2019-09-08] MEDS: FENTANYL 12 MCG/HR PATCH TRANSDERM (08:47)
[2019-09-08] MEDS: PANTOPRAZOLE 40 MG TABLET PO (08:48)
[2019-09-08] MEDS: lisinopriL 20 MG TABLET PO (08:48)
[2019-09-08] MEDS: SENNOSIDES 8.6 MG TABLET PO (08:48)
[2019-09-08] MEDS: CELECOXIB 200 MG CAPSULE PO ×2 (08:48→17:39)
[2019-09-08] MEDS: ENOXAPARIN 40 MG/0.4 ML SYRINGE SUB-Q (08:48)
[2019-09-08] MEDS: DOCUSATE SODIUM 100 MG CAPSULE PO (08:48)
--- NOTE | 2019-09-08 09:48 | WPDNEURORHBP ---
Subjective Date/time seen: Spinal cord compression with S/PT2-T3 laminectomy and Fchyogdch51/30/20 09:48 Review of Systems Review of Systems: All systems reviewed & are unremarkable except as noted in HPI and below Functional Status Transfers Ability Ability to Transfer In/Out of Chair: Total Assistance X 2 Exam Const: General: cooperative, no acute distress, well developed, alert and awake Nutritional Appearance: average body habitus Orientation/consciousness: patient oriented x3 Limitations: other limitations (post surgical) HENMT: Head: normal to inspection Ears: hearing grossly normal bilaterally General nose exam: Normal external nose present and No nasal discharge present Face and sinus: normal facial exam Mouth: Yes Normal oral and palatal mucosa present and Yes tongue normal Eyes: General: appearance normal, both eyes and all related structures Neck: Neck: normal visual inspection and no lymphadenopathy Resp: Effort & Inspection: normal respiratory effort Auscultation: clear to auscultation bilaterally Cardio: Rate: regular rate GI: Auscultation: normal bowel sounds Skin: General skin exam: no rashes or lesions noted Neuro: General: patient oriented x3 Cranial nerves: Yes CN's II-XII intact bilaterally Cognition (Neuro): normal cognition Speech: normal speech Gait exam (Neuro): Unable to assess gait Motor exam (neuro): Abnormal motor strength present (paraparesis) Psych: Appearance: grossly normal Objective Data Vital Signs Vital Signs: Vital Signs - 24 hr 09/07/19 14:00 09/07/19 22:00 09/08/19 06:00 Temperature 36.4 C L 36.4 C L 36.6 C Pulse Rate 91 94 84 Respiratory Rate 20 19 19 Blood Pressure 140/70 137/77 164/94 H Pulse Oximetry 95 97 92 Intake/Output Intake/Output: Intake & Output 09/05/19 09/06/19 09/07/19 09/08/19 23:59 23:59 23:59 23:59 Intake Total 720 1080 920 480 Balance 720 1080 920 480 Meds/Results Medications: Active Medications Generic Name Dose Route Start Last Admin Trade Name Freq PRN Reason Stop Dose Admin Benzonatate 100 mg 08/20/19 13:55 09/06/19 22:13 Tessalon Perles PO 100 mg TID PRN Administration Cough Celecoxib 200 mg 08/27/19 17:00 09/08/19 08:48 Celebrex PO 200 mg BIDWM JOSE Administration Cyclobenzaprine HCl 10 mg 08/29/19 13:07 Flexeril PO BID PRN Muscle Spasm Dexamethasone 2 mg 09/05/19 12:00 09/07/19 13:33 Dexamethasone Po PO 2 mg DAILY@1200 [facility] Administration Docusate Sodium 100 mg 08/20/19 17:00 09/08/19 08:48 Colace Capsule PO 100 mg BID [facility] Administration Enoxaparin Sodium 40 mg 08/21/19 09:00 09/08/19 08:48 Lovenox SUB-Q 40 mg DAILY [facility] Administration Fentanyl 12 mcg 08/30/19 09:00 09/08/19 08:47 Duragesic 12 Mcg Patch TRANSDERM 12 mcg Q72H [facility] Administration Gabapentin 300 mg 08/30/19 14:00 09/08/19 05:22 Neurontin PO 300 mg Q8HR JOSE Administration Guaifenesin/Dextromethorphan 10 ml 08/31/19 15:33 09/02/19 21:20 Robitussin-Dm Syrup PO 10 ml Q4H PRN Administration Cough Lisinopril 20 mg 08/21/19 09:00 09/08/19 08:48 Prinivil PO 20 mg DAILY [facility] Administration Methylphenidate HCl 5 mg 09/08/19 08:00 09/08/19 08:48 Ritalin PO 5 mg 0800,1300 [facility] Administration Ondansetron HCl 4 mg 08/20/19 13:55 Zofran Odt PO Q8H PRN Nausea Pantoprazole Sodium 40 mg 08/21/19 09:00 09/08/19 08:48 Protonix PO 40 mg QAM [facility] Administration Senna 8.6 mg 08/20/19 17:00 09/08/19 08:48 Senokot Tablet PO 8.6 mg BID [facility] Administration Radiology Results: ITS Impressions Brain MRI 08/31/19 08:26 IMPRESSION: 1. No acute intracranial abnormality. No evidence for metastatic disease. 2: Chronic age-related findings. Progress Note: A&P Assessment and Plan (1) Paraparesis: Code(s): G82.20 - Paraplegia, unspecified Status: Acute (2) Neuropat
[2019-09-08] MEDS: DEXAMETHASONE 2 MG TABLET PO (12:23)
[2019-09-08 14:00] VITALS: BP 111/66; PULSE 92; RESP 18; TEMP 36.4; O2SAT 96
[2019-09-08 14:15] VITALS: BMI 11.0
[2019-09-08 17:42] LABS: Alpha Fetoprotein Tumor Marker 71.9 ng/mL (<6.1)
[2019-09-08 22:00] VITALS: BP 145/84; PULSE 85; RESP 16; TEMP 36; O2SAT 92
[2019-09-09] MEDS: GABAPENTIN 300 MG CAPSULE PO (05:39)
[2019-09-09 06:00] VITALS: BP 156/85; PULSE 85; RESP 20; TEMP 36.1; O2SAT 98
[2019-09-09] MEDS: lisinopriL 20 MG TABLET PO (08:23)
[2019-09-09] MEDS: CELECOXIB 200 MG CAPSULE PO (08:23)
[2019-09-09] MEDS: PANTOPRAZOLE 40 MG TABLET PO (08:23)
[2019-09-09] MEDS: ENOXAPARIN 40 MG/0.4 ML SYRINGE SUB-Q (08:23)
--- NOTE | 2019-09-09 10:57 | WPDNEURORHBP ---
Subjective Date/time seen: 09/09/19 10:57 Interval history: This 64-year-old gentleman is here on the acute rehab after having had laminectomy at to T2-T3 for metastatic disease from his hepatocellular carcinoma he has been paraparetic to the course of this hospitalization and now is going to be discharged to correction facility for further continuation of therapy and also recommended to follow up with his oncologist who has been seeing him periodically his ammonia level was relatively high and we can so I am going to give him 1 dose of lactulose and should have and the ammonia level on at the later part of this week at the other facility and they can follow all the levels along with recommendation from the oncologist Review of Systems Review of Systems: All systems reviewed & are unremarkable except as noted in HPI and below Functional Status Transfers Ability Ability to Transfer In/Out of Chair: Total Assistance X 2 Exam Const: General: comfortable and no acute distress HENMT: General nose exam: Normal nares present Mouth: Yes moist mucous membranes Eyes: General: appearance normal, both eyes and all related structures Neck: Neck: supple and no JVD Resp: Effort & Inspection: normal respiratory effort Auscultation: clear to auscultation bilaterally Cardio: Rate: regular rate Rhythm: regular rhythm GI: GI Palp: Yes Soft to palpation Auscultation: normal bowel sounds Skin: General skin exam: normal color and no rashes or lesions noted Neuro: Other: patient remains awake alert well oriented in time place per son follows all commands cranial examination is normal lower extremity strength is 4/5 in fact 4+ over 5 lower extremity strength remains 2/5 with evidence of significant peripheral neuropathy and evidence of myelopathy which has not really have changed much either way Extrem: General: normal to inspection Psych: Mental Status: mental status grossly normal Objective Data Vital Signs Vital Signs: Vital Signs - 24 hr 09/08/19 14:00 09/08/19 22:00 09/09/19 06:00 Temperature 36.4 C 36.0 C L 36.1 C L Pulse Rate 92 85 85 Respiratory Rate 18 16 20 Blood Pressure 111/66 145/84 H 156/85 H Pulse Oximetry 96 92 98 Intake/Output Intake/Output: Intake & Output 09/06/19 09/07/19 09/08/19 09/09/19 23:59 23:59 23:59 23:59 Intake Total 1089 217 4773 240 Balance 5754 539 4412 240 Meds/Results Medications: Active Medications Generic Name Dose Route Start Last Admin Trade Name Freq PRN Reason Stop Dose Admin Benzonatate 100 mg 08/20/19 13:55 09/06/19 22:13 Tessalon Perles PO 100 mg TID PRN Administration Cough Celecoxib 200 mg 08/27/19 17:00 09/09/19 08:23 Celebrex PO 200 mg BIDWM JOSE Administration Cyclobenzaprine HCl 10 mg 08/29/19 13:07 Flexeril PO BID PRN Muscle Spasm Dexamethasone 2 mg 09/05/19 12:00 09/08/19 12:23 Dexamethasone Po PO 2 mg DAILY@1200 [facility] Administration Docusate Sodium 100 mg 08/20/19 17:00 09/09/19 08:23 Colace Capsule PO Not Given BID [facility] Enoxaparin Sodium 40 mg 08/21/19 09:00 09/09/19 08:23 Lovenox SUB-Q 40 mg DAILY [facility] Administration Fentanyl 12 mcg 08/30/19 09:00 09/08/19 08:47 Duragesic 12 Mcg Patch TRANSDERM 12 mcg Q72H JO[facility] Administration Gabapentin 300 mg 08/30/19 14:00 09/09/19 05:39 Neurontin PO 300 mg Q8HR [facility] Administration Guaifenesin/Dextromethorphan 10 ml 08/31/19 15:33 09/02/19 21:20 Robitussin-Dm Syrup PO 10 ml Q4H PRN Administration Cough Lactulose 3 gm 09/09/19 10:55 Lactulose PO ONCE JOSE Lisinopril 20 mg 08/21/19 09:00 09/09/19 08:23 Prinivil PO 20 mg DAILY [facility] Administration Methylphenidate HCl 5 mg 09/08/19 08:00 09/09/19 08:23 Ritalin PO 5 mg 0800,1300 [facility] Administration Ondansetron HCl 4 mg 08/20/19 13:55 Zofran Odt PO Q8H PRN Nausea Pantoprazole Sodium 40 mg 08/21/19 09:0
--- NOTE | 2019-09-09 11:52 | PCDIET ---
Nutrition Follow-Up Complete: Nutrition Diagnosis: Suboptimal oral intake related to decreased appetite as evidenced by meal refusal at breakfast. Nutrition Goal: Patient to consume 50% of meals or more + supplements Goal met. Patient consuming 75-100% of most meals on regular diet with [employer] BID. Last recorded weight is 94.2 kg. Recommend obtaining new weight. Bowel Motility: +BM today. Labs Reviewed: Glu (128), Cr (0.50), Na (136), Alb (3.4) Meds Noted: Dexamethasone, Colace, Fentanyl, Protonix, Lactulose Additional Notes: Right buttock abrasion; upper back incision. No documented pressure sores. Noted plan for discharge today; will continue to monitor with same goals, should patient remain in house. Nutrition Monitoring and Evaluation: Follow up in 7 days.
[2019-09-09] MEDS: methylPREDNISolone (MEDROL) DOSEPACK 4 MG TABLETS PO ×2 (12:35→12:36)
[2019-09-09] MEDS: TRIAMCINOLONE ACET 0.1% CREAM 15 GM TUBE 1 APPLIC TOPICAL (12:35)
[2019-09-09] MEDS: LACTULOSE 20 GM/30 ML UDC 30 GM PO (12:36)
[2019-09-09] MEDS: DEXAMETHASONE 2 MG TABLET PO (12:36)
--- NOTE | 2019-09-11 11:41 | PM.DS ---
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 it was treated with the T2-3 laminectomy in prior to that the patient has had radiation done and also a consideration for the future chemotherapy and radiation the patient did not fair well in the rehab and the increasing weakness of the lower extremities was quite evident but overall he remained stable was followed by the oncologist their notes are self explanatory and the patient will be followed by them the patient did have some elevation of ammonia which was treated with lactulose and needs to be repeated post discharge to prison facility and followed by [facility] Hospital Course: patient did receive PT OT gait training and medical treatment for his underlying medical issues along with his home chemotherapy tablets he was able to achieve the following independence measure eating was set up oral hygiene was supervision toileting was setup bathing was substantial upper body dressing was supervision lower body dressing with substantial footwear was partial assistance rolling in bed to us partial assistance sitting to lying dependent lying to sitting dependent sit to stand patient was unable to do it chair transfers dependent per the tonsils patient was unable to car transfers patient was unable to walking 10 feet patient was unable to walking 50 feet with toe turns patient unable to walking 150 feet patient unable to walking 10 feet patient unable to car were set up patient unable to 4 steps patient unable to 12 steps patient unable to thinking of objects patient unable to wheelchair 50 feet independent and wheelchair 150 feet independent patient with discharged to prison facility no falls were recorded Time Spent with Patient Time attestation: Total time spent providing and/or coordinating discharge services: Exam Const: General: comfortable and no acute distress HENMT: General nose exam: Normal nares present Mouth: Yes moist mucous membranes Eyes: General: appearance normal, both eyes and all related structures Neck: Neck: supple and no JVD Resp: Effort & Inspection: normal respiratory effort Auscultation: clear to auscultation bilaterally Cardio: Rate: regular rate Rhythm: regular rhythm GI: Auscultation: normal bowel sounds Skin: General skin exam: normal color and no rashes or lesions noted Neuro: Other: patient did have fluctuating mental status most likely related to a drug effect and are remote effects of the cancer however the brain MRI did not reveal any evidence of metastatic disease he remained paraparetic to a significant degree with evidence of myelopathy/neuropathy of with equivocal Babinski and quite dependent as
== END 2019-09-09 15:00 | DRG 560 ==
PROVIDERS: Internal Medicine Medical Oncology; Admitting Provider Psychiatry & Neurology Neurology; PCP Internal Medicine; Visit Provider Psychiatry & Neurology Neurology
DX: Z47.89 Encounter for other orthopedic aftercare (principal); G95.29 Other cord compression; C22.0 Liver cell carcinoma; M47.14 Other spondylosis with myelopathy, thoracic region; G82.20 Paraplegia, unspecified; G93.40 Encephalopathy, unspecified; E72.20 Disorder of urea cycle metabolism, unspecified; C79.49 Secondary malignant neoplasm of other parts of nervous system; G62.9 Polyneuropathy, unspecified; R47.1 Dysarthria and anarthria; R73.9 Hyperglycemia, unspecified; E78.5 Hyperlipidemia, unspecified; F17.210 Nicotine dependence, cigarettes, uncomplicated; I10 Essential (primary) hypertension; J43.9 Emphysema, unspecified; R05 Cough; T38.0X5D Adverse effect of glucocorticoids and synthetic analogues, subsequent encounter; Z92.21 Personal history of antineoplastic chemotherapy
CPT/HCPCS: 36415; 70553; 80048; 80053; 82105; 82140; 84443; 85025; 85027; 87081; 93005; 97110; 97140; 97161; 97166; 97530; 97535; 97542; A9270; A9577; J1100; J1650; J2405; J2704; J8540

== ENCOUNTER 2019-09-16 19:58 | Observation (INO) | payer MEDICARE, MEDICAID, SELFPAY ==
--- NOTE | ~2019-09-16 | XR_ITS ---
EXAMINATION: XR chest 1V portable INDICATION: Shortness of breath, history of metastatic disease TECHNIQUE: Portable AP chest at 2024 hours COMPARISON: None available FINDINGS: The lungs are free of acute opacities. There is no pleural effusion or pneumothorax. Cardio megaly is noted. Calcified right hilar lymph nodes are consistent with old granulomatous disease. IMPRESSION: 1. Cardiomegaly. Reviewed, dictated and finalized at location A. IMPRESSION: 1. Cardiomegaly.
--- NOTE | ~2019-09-16 | US_ITS ---
EXAMINATION: US carotid duplex BI DATE: 09/17/2019 12:11 INDICATION: Syncope. TECHNIQUE: Grayscale, color Doppler, and pulsed Doppler images of the cervical carotid arteries were obtained. The degree of vessel stenosis is placed in one of the following categories: normal, <50%, 5 0-69%, >=70% but less than near-occlusion, near-occlusion, or total occlusion. Note that percent sten osis relative to normal distal artery lumen diameter is indirectly measured from velocity measurement s as described by Smooth, et al. Radiology 2003; 229:340-346. COMPARISON: None. FINDINGS: RIGHT: The right common carotid artery (CCA) peak systolic velocity (PSV) is 86 cm/s. The right internal car otid artery (ICA) PSV is 83 cm/s. The right ICA end-diastolic velocity (EDV) is 19 cm/s. The right IC A/CCA PSV ratio is 1.0. Grayscale and color Doppler images yield an estimate of <50% diameter reducti on from plaque in the ICA. There is antegrade flow in the right vertebral artery. LEFT: The left CCA PSV is 100 cm/s. The left ICA PSV is 83 cm/s. The left ICA EDV is 27 cm/s. The left ICA/ CCA PSV ratio is 0.8. Grayscale and color Doppler images yield an estimate of <50% diameter reduction from plaque in the ICA. There is antegrade flow in the left vertebral artery. IMPRESSION: 1. <50% stenosis in the right internal carotid artery. 2. <50% stenosis in the left internal carotid artery. Reviewed, dictated and finalized at location A.
--- NOTE | ~2019-09-16 | CT_ITS ---
EXAMINATION: CT brain wo con EXAM DATE: 09/17/2019 12:14 INDICATION: Syncope. TECHNIQUE: Spiral CT of the head was performed without contrast. Axial, coronal and sagittal images were reviewed. The dose-length product (DLP) for this examination was 681.00 mGy-cm. The exposure w as tailored according to patient size, and iterative reconstruction (ASIR) was used as additional dos e reduction technique. There is no prior study for comparison. FINDINGS: There is no acute intraparenchymal hemorrhage. No evidence of intraparenchymal brain mass lesion. No evidence of acute infarction. Please note that initial head CT has limited sensitivity f or small or acute infarctions. There is mild periventricular and subcortical hypodensity, nonspecific but probably related to small vessel ischemic disease. There is mild prominence of the sulci and v entricles related to cerebral atrophy. There is intracranial carotid arteriosclerosis. There are n o extra-axial collections. There is no mass effect or midline shift. There is an old left medial or bital wall fracture. Soft tissue is unremarkable. The visualized sinuses and mastoid air cells are w ell aerated. IMPRESSION: 1. No acute intracranial findings. 2. Chronic age related findings. Reviewed, dictated and finalized at location B.
--- NOTE | ~2019-09-16 | MR_ITS ---
EXAMINATION: MR brain/brain stem wo/w con DATE: 09/19/2019 15:00 INDICATION: Hepatocellular carcinoma. TECHNIQUE: Magnetic resonance imaging (MRI) of the brain and brainstem was performed without and with 18 cc MultiHance intravenous contrast. Sequences included sagittal and axial T1-weighted SE, axial d iffusion-weighted FS SE, axial T2*-weighted GRE, axial T2-weighted FLAIR Propeller, and axial T2-weig hted Propeller. Apparent diffusion coefficient (ADC) maps were created. COMPARISON: CT dated 09/17/2019 and MRI dated 08/31/2019 FINDINGS: Mild generalized brain parenchymal volume loss. Study limited by motion artifact. No eviden ce for acute infarction or hemorrhage. Mild generalized atrophy. There are scattered mild periventric ular and subcortical white matter changes, most likely related to small vessel ischemic disease (micr oangiopathy). Structures of the posterior fossa including 7/8th cranial nerve complexes are normal. N o ventriculomegaly or midline shift. Orbits are symmetric without disconjugate gaze. No significant a bnormality of the paranasal sinuses. No abnormal contrast enhancement. No discrete masses or mass eff ect. IMPRESSION: 1. No acute intracranial abnormality. No evidence for intracranial metastases. 2: Chronic age-related findings. Reviewed, dictated and finalized at location A.
--- NOTE | ~2019-09-16 | CT_ITS ---
EXAMINATION: CT chest abdomen pelvis w con DATE: 09/18/2019 09:18 INDICATION: Metastatic liver cancer with chest pain. TECHNIQUE: Computed tomography (CT) of the chest, abdomen, and pelvis was performed with 100 mL Omnip aque 350 intravenous contrast. Automated exposure control and iterative reconstruction technique were employed. The dose-length product was 1475.19 mGy-cm. COMPARISON: None FINDINGS: CHEST CT: There is mild emphysema. There is mild atelectasis in the lungs bilaterally with a peripheral predomi nance. Calcified left lung nodules and calcified left hilar lymph nodes are consistent with old granu lomatous disease. No pleural effusion. The heart size is normal. There is a small pericardial effusio n. There are coronary artery calcifications. There is a lytic lesion in T3 vertebral body with pathol ogic burst fracture. There is paravertebral and epidural extension of the soft tissue component with severe central canal stenosis. There are changes of T3 laminectomy. ABDOMEN/PELVIS CT: There is a large infiltrative ill-defined mass or masses involving right hepatic lobe. There is throm bus in main portal vein and left and right portal veins. There is cavernous transformation of the barbara n portal vein. Paraesophageal varices are noted. Calcifications in the spleen are consistent with old granulomatous disease. The gallbladder, pancreas, and left adrenal gland are normal. There is a 10 m m mass in right adrenal gland measuring soft tissue attenuation. The kidneys are normal. The prostate is mildly enlarged. There is wall thickening of the sigmoid colon and rectum, consistent with coliti s. The appendix is normal. There are no dilated loops of bowel. There is wall thickening of the proxi mal duodenum. There is periportal lymphadenopathy with the largest node measuring 5.6 x 3.8 cm. There is trace perihepatic and pelvic ascites. There are subcutaneous injection sites in the anterior abdo zenobia wall. IMPRESSION: 1. Infiltrative ill-defined mass or masses involving right hepatic lobe, consistent with primary thomas gnancy. 2. Periportal lymphadenopathy, consistent with metastatic disease. 3. T3 metastatic disease with severe central canal stenosis status post laminectomy. 4. 10 mm right adrenal mass, which may be an adenoma or metastatic disease. 5. Rectosigmoid colitis. 6. Duodenitis, which may be secondary to radiation therapy or peptic ulcer disease. 7. Thrombus in main portal vein and the left and right portal veins. At least a portion of the thromb us is likely tumor thrombus. Reviewed, dictated and finalized at location A. IMPRESSION: 1. Infiltrative ill-defined mass or masses involving right hepatic lobe, consis tent with primary malignancy. 2. Periportal lymphadenopathy, consistent with metastatic disease. 3. T3 metastatic disease with severe central canal stenosis status post laminec lety. 4. 10 mm right adrenal mass, which may be an adenoma or metastatic disease. 5. Rectosigmoid colitis. 6. Duodenitis, which may be secondary to radiation therapy or peptic ulcer dise ase. 7. Thrombus in main portal vein and the left and right portal veins. At least a portion of the thrombus is likely tumor thrombus.
[2019-09-16 20:02] VITALS: BP 111/69; PULSE 93; RESP 17; TEMP 36.3; O2SAT 98
--- NOTE | 2019-09-16 20:06 | ED.CHESTPAIN ---
HPI - Chest Pain General Chief Complaint: Chest Pain Stated Complaint: sob Time Seen by Provider: 09/16/19 20:06 Mode of arrival: EMS History of Present Illness HPI narrative: A 64 y/o male presents to the ED via EMS from [facility] near syncopal event needed to have a BM and then had a syncopal episode after he got up no diarrhea, chronic rt chest wall pain Related Data Home Medications Medication Instructions Recorded Confirmed benzonatate 100 mg PO TID PRN 08/20/19 08/20/19 docusate sodium 100 mg PO BID 08/20/19 08/20/19 lisinopril 20 mg PO DAILY 08/20/19 08/20/19 ondansetron 4 mg PO Q8H PRN 08/20/19 08/20/19 pantoprazole 40 mg PO QAM 08/20/19 08/20/19 sennosides [senna] 8.6 mg PO BID 08/20/19 08/20/19 Allergies Allergy/AdvReac Type Severity Reaction Status Date / Time codeine AdvReac Irritable Verified 08/20/19 14:41 loperamide AdvReac Nausea and Verified 08/20/19 16:03 Vomiting PMF Past Medical History Medical History (Updated 09/09/19 @ 11:00 by Mitesh Jarvis MD) Hepatocellular carcinoma Metastatic disease Paraparesis Social History Social History Smoking packs per day: 1 Smoking cigarettes per day: 20.0 Years smoked: 45 Smoking pack-years: 45.00 Smoking status: Current every day smoker Tobacco type: cigarettes Second hand tobacco smoke exposure: Yes Alcohol intake: former Substance use: former Substance use type: other Gender identity (if verbalized by the patient): Male Spiritual care concerns: No Agree to blood products: Yes Discharge Plan Discharge Prescriptions: No Action docusate sodium 100 mg Capsule 100 mg PO BID RF: 0 sennosides [senna] 8.6 mg Tablet 8.6 mg PO BID RF: 0 lisinopril 20 mg Tablet 20 mg PO DAILY RF: 0 benzonatate 100 mg Capsule 100 mg PO TID PRN (Reason: Cough) RF: 0 pantoprazole 40 mg Tablet,Delayed Release (Dr/Ec) 40 mg PO QAM RF: 0 ondansetron 4 mg Tablet,Disintegrating 4 mg PO Q8H PRN (Reason: Nausea) RF: 0 celecoxib [Celebrex] 200 mg Capsule 200 mg PO BIDWM Qty: 0 RF: 0 cyclobenzaprine 10 mg Tablet 10 mg PO BID PRN (Reason: Muscle Spasm) Qty: 0 RF: 0 methylphenidate HCl 5 mg Tablet 5 mg PO 0800,1300 Qty: 60 RF: 0 dexamethasone 2 mg Tablet 2 mg PO DAILY@1200 Qty: 0 RF: 0 gabapentin [Neurontin] 300 mg Capsule 300 mg PO Q8HR Qty: 0 RF: 0 enoxaparin [Lovenox] 40 mg/0.4 mL Syringe 40 mg subcut DAILY Qty: 0 RF: 0 fentanyl [Duragesic] 12 mcg/hr Patch 72 Hour 12 mcg transdermal Q72H Qty: 10 RF: 0 lactulose 20 gram/30 mL Solution 30 g PO ONCE Qty: 0 RF: 0 Home Medication 2 ea PO DAILY Qty: 0 RF: 0 methylprednisolone [Medrol (Francisco)] 4 mg Tablets,Dose Pack See Rx Instructions .ROUTE .COMPLEX Qty: 1 RF: 0 triamcinolone acetonide 0.1 % Cream 1 applic TOPICAL BID Qty: 1 RF: 0
--- NOTE | 2019-09-16 20:12 | ED.SYNCOPE ---
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 He states that he was getting help from the staff to get up to have a BM when he had a syncopal episode. He reports a dry cough and chronic rt chest pain. Per EMS reports that the [facility] staff said that the pt had a fever of 101.3 but they checked it 5x in route and it was 97, upon arrival the pt's temperature was 97.3. Per old records the pt has a hx of liver cancer and was released from our long-term rehab on 09/09/19. He denies any diarrhea, rhinorrhea, sore throat, or nasal congestion. MD complaint: loss of consciousness Onset (ago): minute(s) Prodromal symptoms: none Witnessed: Yes - by Other ([facility] staff) Context: getting out of bed (to have a BM) Injuries sustained associated with event: none Current symptoms: chest pain (chronic rt) and other (dry cough) Related Data Home Medications Medication Instructions Recorded Confirmed benzonatate 100 mg PO TID PRN 08/20/19 09/17/19 docusate sodium 100 mg PO BID 08/20/19 09/17/19 lisinopril 20 mg PO DAILY 08/20/19 09/17/19 ondansetron 4 mg PO Q8H PRN 08/20/19 09/17/19 pantoprazole 40 mg PO QAM 08/20/19 09/17/19 sennosides [senna] 8.6 mg PO BID 08/20/19 09/17/19 lenvatinib [Lenvima] 20 mg PO DAILY 09/16/19 09/17/19 ipratropium-albuterol 3 ml INHALATION Q6H 09/17/19 09/17/19 lactulose 20 g PO TID 09/17/19 09/17/19 triamcinolone acetonide 0.025 applic TOPICAL BID 09/17/19 09/17/19 Allergies Allergy/AdvReac Type Severity Reaction Status Date / Time codeine AdvReac Irritable Verified 09/16/19 20:50 loperamide AdvReac Nausea and Verified 09/16/19 20:50 Vomiting Review of Systems Review of Systems: All systems reviewed & are unremarkable except as noted in HPI and below ENT: Denies nasal congestion, Denies nasal discharge and Denies sore throat Cardiovascular: Cardiovascular: Reports chest pain (chronic rt) Respiratory: Respiratory: Reports cough (dry) Gastrointestinal: Gastrointestinal: Denies diarrhea Neurologic: Reports syncope PMFSH Past Medical History Medical History Hepatocellular carcinoma Hyperammonemia 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 Metastatic disease Neuropathy Paraparesis Thoracic myelopathy Surgical History Surgical History Surgical history unknown Family History Family History Father Acute myocardial infarction Mother Diabetes mellitus Mother Cerebrovascular accident Sibling Hypertension Social History Social History Smoking packs per day: 1 Smoking cigarettes per day: 20.0 Years smoked: 45 Smoking pack-years: 45.00 Smoking status: Former smoker Tobacco type: cigarettes Second hand tobacco smoke exposure: Yes Alcohol intake: former Substance use: former Substance use type: does not use Gender identity (if verbalized by the patient): Male Spiritual care concerns: No Agree to blood products: Yes Exam Narrative: Exam Narrative: GENERAL: Chronically ill-appearing, well-nourished, and in no acute distress. HEAD: Normocephalic, atraumatic. ENT: Dry mucous membranes. CHEST: Clear to auscultation. No respiratory distress. HEART: Regular rate and rhythm. Normal peripheral pulses. ABDOMEN: Soft, nontender, nondistended. EXTREMITIES: Normal strength bilateral upper extremities. Paraplegia bilateral lower extremities without deformity. SKIN: Warm, dry, no rash. NEURO: Alert and oriented x3. Course Course Emergency Course: Calcium replaced, Consultations Consul
--- NOTE | 2019-09-16 20:15 | ECG_ITS ---
Measurements Intervals [place] Rate: 90 P: 27 [place]: 142 QRS: 0 QRSD: 93 T: 67 QT: 373 QTc: 459 Interpretive Statements SINUS RHYTHM BASELINE ARTIFACT- II, V2 NORMAL ECG Electronically Signed On 09-17-2019 7:10:13 CDT by Garfield Mohan D.O.
[2019-09-16] MEDS: SODIUM CHLORIDE 0.9% IV 1,000 ML 999 ML IV CONT (20:20)
[2019-09-16 20:50] LABS: Basophils Absolute Auto 0.1 K/mm3 (0.0-0.1); Basophils Percent Auto 0.8 % (0.2-1.2); Eosinophils Absolute Auto 0.1 K/mm3 (0-0.3); Eosinophils Percent Auto 0.7 % (0-4.4); Hematocrit 39.1 % (42.0-52.0); Hemoglobin 13.1 g/dL (14.0-18.0); Immature Granulocyte Absolute 0.16 K/mm3 (0.00-0.031); Immature Granulocyte Percent A 1.7 % (0-0.5); Lymphocytes Absolute Auto 1.74 K/mm3 (0.9-3.2); Mean Corpuscular HGB Conc 33.5 g/dl (32-36); Mean Corpuscular Hemoglobin 32.9 pg (26-34); Mean Corpuscular Volume 98.2 fl (80-100); Monocytes Absolute Auto 0.6 K/mm3 (0.1-0.6); Monocytes Percent Auto 6.8 % (2.6-8.5); Neutrophils Absolute Auto 6.5 K/mm3 (1.3-6.7); Platelet Count Result 190 k/mm3 (150-375); Red Blood Count 3.98 M/mm3 (4.6-6.20); Red Cell Distribution Width 18.4 % (11.5-14.5); White Blood Count 9.2 K/mm3 (4.5-10.0)
[2019-09-16 20:56] VITALS: BP 124/56; PULSE 88; RESP 18; O2SAT 99
[2019-09-16 21:00] LABS: INR 1.2; Prothrombin Time 14.4 Seconds (11.1-14.7)
[2019-09-16 21:02] LABS: Lactic Acid Reflex 2.3 mmol/L (0.7-2.1)
[2019-09-16 21:03] LABS: Alanine Aminotransferase 40 U/L (4-50); Alkaline Phosphatase 126 U/L (38-126); Aspartate Amino Transferase 32 U/L (17-59); Bilirubin,Total 0.7 mg/dL (0.2-1.3); Blood Urea Nitrogen 16 mg/dL (9-20); Calcium 7.7 mg/dL (8.4-10.2); Carbon Dioxide 24 mmol/L (22-30); Chloride 111 mmol/L (98-107); Estimated Glomerular Filt Rate > 60; Glucose 128 mg/dL (75-110); Potassium 4.1 mmol/L (3.4-5.0); Sodium 140 mmol/L (137-145)
[2019-09-16 21:06] LABS: Add Urine Microscopic? YES; Amorphous Sediment Urine Few; Appearance Urine Clear (Clear); Bacteria Urine Trace /hpf; Bilirubin Urine Negative (Negative); Blood Urine Negative (Negative); Color Urine Yellow (Yellow); Glucose Urine UA Negative (Negative); Hyaline Casts Urine 15-19 /lpf; Ketones Urine Negative (Negative); Leukocyte Esterase Ur Trace LEU/UL (Negative); Mucus Urine Few /lpf; Nitrate Urine Positive (Negative); Protein Urine 1+ mg/dL (Negative); RBC Urine 0-2 /hpf (0-2); Specific Grav Ur 1.014 (1.001-1.035); Squamous Epithelial Cell Urine Rare /hpf (Few)
[2019-09-16 21:11] LABS: Ammonia < 9 umol/L (9-30)
[2019-09-16 21:15] LABS: Troponin I < 0.012 ng/mL (0.000-0.034)
[2019-09-16 21:50] VITALS: BP 123/73; PULSE 94; RESP 18; O2SAT 97
[2019-09-16] MEDS: CALCIUM GLUC 1,000 MG/NS 50 ML 1,000 MG/50 ML BAG 100 MG IVPB (21:59)
[2019-09-16 22:24] VITALS: BP 138/73; PULSE 98; RESP 16; O2SAT 97
[2019-09-16 22:50] VITALS: BP 121/70; BP 133/71; PULSE 100; PULSE 98
[2019-09-16 23:34] LABS: Lactic Acid Reflex 2.2 mmol/L (0.7-2.1)
[2019-09-16 23:47] LABS: Reflex Lactic Acid Yes or No Add Lactic
[2019-09-17] VITALS (12 sets, daily range): BP systolic 106–127; BP diastolic 51–77; PULSE 91–101; RESP 14–20; TEMP 36.1–37.3; O2SAT 96–98; BMI 28.9; BMI 10.0
--- NOTE | 2019-09-17 | ECHO_ITS ---
Patient Info Name: Scott Mckinney Age: 64 years : 1955 Gender: Male Ht: 69 in Wt: 196 lbs BSA: 2.10 m2 HR: 90 bpm BP: 127 / 65 mmHg Heart Rhythm: Sinus Rhythm Technical Quality: Good Exam Date: 09/17/2019 11:02 AM Exam Location: [facility] Patient Status: Inpatient Admit Date: 09/17/2019 Staff Ordering Physician: Jamee Rico PA-C Leadership Recruiter: Valeriy Mari RDCS Attending Provider: Jamee Rico PA-C Referring Physician: Trisha ORTIZ; Exam Type: CA echo doppler color flow Study Info Indications R55 - Syncope and collapse Complete two-dimensional, color flow and Doppler transthoracic echocardiogram is performed. History/Risk Factors Syncope; cardiomegaly. Summary 1. Left ventricular chamber dimension is normal. 2. Left ventricular systolic function is normal, estimated at 60-65%. 3. There is mildly increased left ventricular wall thickness. 4. The left ventricular diastolic function is grade I diastolic dysfunction. 5. There is mild mitral valve regurgitation. 6. There is mild tricuspid valve regurgitation. 7. The pericardium appears thickened pericardium. 8. Echogenic appearing trivial to small pericardial effusion. Left Ventricle Left ventricular chamber dimension is normal. Left ventricular systolic function is normal, estimated at 60-65%. There is mildly increased left ventricular wall thickness. The left ventricular diastolic function is grade I diastolic dysfunction. Right Ventricle Right ventricular chamber dimension is normal. Right ventricular systolic function is normal. Left Atria Left atrial chamber dimension is normal. Right Atria Right atrial chamber dimension is normal. Atrial Septum Intact interatrial septum visualized by color flow imaging. Aortic Valve The aortic valve is trileaflet. There is mild aortic valve sclerosis. There is no aortic valve stenosis. There is trace aortic valve regurgitation. Pulmonic Valve The pulmonic valve is normal. There is no pulmonic valve stenosis. There is trace pulmonic regurgitation. Mitral Valve The mitral valve has normal leaflets. There is no mitral valve stenosis. There is mild mitral valve regurgitation. Tricuspid Valve The tricuspid valve leaflets are normal. There is no significant tricuspid valve stenosis. There is mild tricuspid valve regurgitation. No pulmonary hypertension, estimated pulmonary arterial systolic pressure is 34 mmHg. Other Findings Echogenic appearing trivial to small pericardial effusion. \E\. Pericardium/Pleural The pericardium appears thickened pericardium. There is trivial pericardial effusion. Inferior Vena Cava Normal inferior vena cava with >50% collapse upon inspiration consistent with normal right atrial pressure, 5 mmHg. Aorta The aortic root size at the sinus of Valsalva is normal. Left Ventricular Outflow Tract Name Value Normal LVOT 2D LVOT Diameter 2.0 cm LVOT Doppler LVOT Peak Gradient 4 mmHg LVOT Mean Gradient 2 mmHg LVOT VTI
--- NOTE | 2019-09-17 03:00 | ADMGEN ---
This patient, Scott Mckinney, was admitted to Medical Room 255-. Patient/family oriented to hospital policies and general routines including ID bracelet, bed and alarms, visiting hours, pain management, procedures, bathroom and other care routines, personal items, smoking policy, room service/diet, and visiting hours. Valuables list has been completed. Information on how to activate the Rapid Response Team has been discussed. Patient/Family are encouraged to report perceived risks to care and to ask questions if they do not understand what they are told or what they should do.
[2019-09-17] MEDS: SODIUM CHLORIDE 0.9% IV 1,000 ML 100 ML IV CONT ×2 (03:37→13:13)
[2019-09-17] MEDS: DOCUSATE SODIUM 100 MG CAPSULE PO (08:31)
[2019-09-17] MEDS: MORPHINE SULFATE 4 MG/ML INJ IV PUSH (08:32)
[2019-09-17] MEDS: SENNOSIDES 8.6 MG TABLET PO ×2 (08:40→17:34)
[2019-09-17] MEDS: ENOXAPARIN 40 MG/0.4 ML SYRINGE SUB-Q (08:41)
[2019-09-17] MEDS: LACTULOSE 20 GM/30 ML UDC PO (08:41)
[2019-09-17] MEDS: PANTOPRAZOLE 40 MG TABLET PO (08:42)
[2019-09-17] MEDS: lisinopriL 20 MG TABLET PO (08:42)
--- NOTE | 2019-09-17 10:07 | PM.IMHP ---
H&P: HPI History of Present Illness Chief complaint: sob Narrative: Scott Mckinney is a 64 year old male with PMH significant for hepatocellular carcinoma with metastatic disease to T3 s/p laminectomy of T2 and T3 due to metastasis with paraparesis, hx of hyperammonemia, and hypertension who presented to the ED via EMS from [facility] after a syncopal episode. The nursing staff reported that the pt had a syncopal episode when the pt was getting up for a bowel movement. The pt reports that he felt somewhat lightheaded yesterday. He also endorses fatigue. He reports that overall, he feels well today. He denies cough, shortness of breath, palpitations, and chest pain. He denies nausea, vomiting, and abdominal pain. He denies dizziness and lightheadedness. He states that he feels like his appetite has been fine recently. He denies hx of falls. Per ED notes, the pt reported chest pain but he denies any current chest pain or hx of angina on my questioning. Initial workup in the ED revealed CBC with Hb 13.1, Hct 39.1, and WBC 9.2, lactic acid of 2.3, calcium of 7.7, ammonia <9, troponin <0.012, unremarkable EKG without evidence of ischemia with QTc 459, and albumin 3.0. UA revealed nitrates, 7-9WBC, trace leukocyte esterase, and trace hyaline casts. Orthostatic BP was negative for orthostatic hypotension. Review of Systems Review of Systems: Narrative: Constitutional: Denies fever, chills, and appetite change. Reports fatigue. Eyes: Denies vision change. No additional eye complaints. ENT: Denies change in hearing, nasal congestion, dysphagia, odynophagia, and sore throat. Cardiovascular: Denies palpitations and chest pain. Denies PND and orthopnea. Denies dyspnea on exertion. Respiratory: Denies cough and shortness of breath. Gastrointestinal: Denies abdominal pain, nausea, and vomiting. Genitourinary: Denies dysuria, frequency, urgency, and hesitancy. Musculoskeletal: Denies joint pain and swelling. Denies muscle cramps and weakness. Skin: Denies lesions and wounds. Neurologic: Denies focal weakness, paresthesias, and speech change. Psychiatric: Denies mood change. Hematologic: Denies easy bruising and bleeding. 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 Substance use: former Substance use type: does not use Gender identity (if verbalized by the patient): Male Spiritual care concerns: No Agree to blood products: Yes Meds Home Medications and Allergies Home Medications Medication Instructions Recorded Confirmed Type benzonatate 100 mg PO TID PRN 08/20/19 09/17/19 History docusate sodium 100 mg PO BID 08/20/19 09/17/19 History lisinopril 20 mg PO DAILY 08/20/19 09/17/19 History ondansetron 4 mg PO Q8H PRN 08/20/19 09/17/19 History pantoprazole 40 mg PO QAM 08/20/19 09/17/19 History sennosides [senna] 8.6 mg PO BID 08/20/19 09/17/19 History celecoxib [Celebrex] 200 mg PO BIDWM #0 cap 09/09/19 09/17/19 Rx cyclobenzaprine 10 mg PO BID PRN #0 tablet 09/09/19 09/17/19 Rx
--- NOTE | 2019-09-17 11:35 | CONS_ITS ---
DATE OF CONSULTATION: 09/17/2019 HISTORY OF PRESENT ILLNESS: This 64 years old right-handed male has been admitted to the hospital for the complaint of shortness of breath, in addition to the ongoing history of, 1. Hepatocellular carcinoma with metastatic disease to the spine. 2. Status post laminectomy of T2 and T3, secondary to metastasis. 3. Paraparesis. 4. Hypertension. The patient presented to the emergency department via EMS from the [facility] after a syncopal episode. He felt somewhat lightheaded and was feeling well on the day of admission, and as mentioned above, he has ongoing history of multiple medical problems in addition to what we mentioned above. He has paraparesis with thoracic myelopathy. He smokes. Years smoking is 45 packs per year, though at present he is not smoking. He also used to be a drinker in the past, not anymore. At present, he is taking multiple medications as outlined. On initial evaluation, he was notedly afebrile with blood pressure 111/69 and pulse 98 with pulse ox of 98 as well. CBC revealed WBC 9.12, hemoglobin 13.1, with platelet count of 190. Normal basic metabolic panel, except glucose of 128 and calcium 7.7. Normal hepatic enzyme. Troponin less than 0.012. His albumin is low, that is 3.0. UA is negative. PHYSICAL EXAMINATION: GENERAL: He is awake, alert, cooperative, in no obvious acute distress. HEENT: Head normocephalic with no cranial bruit. Ear, nose, throat exam normal. NECK: Supple with no cervical bruit. No thyromegaly. No lymphadenopathy. HEART: Regular. LUNGS: Clear. ABDOMEN: Soft. NEUROLOGICAL: He is awake, alert, and he mentioned to me that he got lost other than what has been documented. Speech not dysphasic, not dysarthric. Pupils round, regular. [place]away of vision full. Extraocular movements full. Face symmetrical. Tongue midline. Motor examination revealed him to have paraparesis with hyperreflexia, upgoing plantar responses, and there is no evidence of gross cerebellar deficit on examination of upper extremities. The patient had recently been discharged from the rehab. Those records were reviewed. At this stage, the medical management will be continued as such unless he becomes eligible for the rehab. Otherwise, he will be continued on the medication as such. HAL YOUNG M.D. 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
[2019-09-17] MEDS: DEXAMETHASONE 2 MG TABLET PO (13:08)
[2019-09-17] MEDS: CYCLOBENZAPRINE HCL 10 MG TABLET PO (13:08)
[2019-09-17] MEDS: GABAPENTIN 300 MG CAPSULE PO ×2 (13:15→21:46)
--- NOTE | 2019-09-17 14:02 | WPDONCCN ---
Assessment and Plan Assessment and plan (1) Hepatocellular carcinoma: Code(s): C22.0 - Liver cell carcinoma Status: Acute Assessment and Plan: 1. With his syncope, I will re-address his cancer status 2. Tomorrow, I will schedule CT of chest and abdomen and pelvis with contrast 3. For now, lets hold his oncology Rx - Lenvima 4. Check TSH (2) Syncope: Code(s): R55 - Syncope and collapse Status: Acute Assessment and Plan: 1. Etiology is probably related to his UTI but I would like to back off on Lenvima for now in case this is causing some of his problems 2. No evidence of NEWS VIDEO EDITOR disease albeit he only had a CT Scan [facility] Data of Consult Date/Time: 09/17/19 14:02 Requesting Physician: Jamee Rico PA-C Primary Care Provider: Adeola BellMD Consult Narrative Narrative: Scott Mckinney is a 64 year old male with h/o stage IV HCC presents as a transfer from [facility] after he had a syncopal episode. In ER, VS were stable and he was afebrile. He denied any cough, SOB or N/V. He c/o of intermittent right sided CW pain from his mets that is relatively controlled. Lactic acid was elevated and UA was + for UTI. He was admitted and placed on IVF and IV Ceftriaxone. At the visit, he is slow in his mentation and is forgetfull with certains words. He continues to have paraparesis and cont on Lenvima for his liver cancer. EKG showed no ischemia or QT prolongation. CT of head was negative for bleed or CVA or edema. CXR showed CM and no infiltrates Review of Systems Review of Systems: All systems reviewed & are unremarkable except as noted in HPI and below Constitutional: Constitutional: Denies anorexia, Reports fatigue, Denies fever(s), Reports malaise, Denies night sweats, Reports snoring, Reports weakness and Denies weight loss Eyes: Eyes: Denies blurry vision ENT: Denies dysphagia, Denies epistaxis, Denies mouth lesions, Denies mouth pain, Denies odynophagia, Denies disequilibrium and Denies sore throat Cardiovascular: Cardiovascular: Reports chest pain at rest, Denies leg edema and Denies dyspnea Respiratory: Respiratory: Denies cough, Denies dyspnea and Reports snoring Gastrointestinal: Gastrointestinal: Denies abdominal pain, Denies constipation, Denies dysphagia, Denies diarrhea, Denies nausea, Denies odynophagia and Denies vomiting Genitourinary: Genitourinary: Denies hematuria and Reports dysuria Musculoskeletal: Musculoskeletal: Denies myalgias, Denies arthralgias and Denies muscle weakness Integumentary/Breasts: Skin/Breast: Denies rash and Denies unusual bruising Neurologic: Reports confusion, Reports lack of coordination, Reports memory loss, Reports paresthesias, Reports disequilibrium and Reports weakness Psychiatric: Psychiatric: Denies anxiety, Reports confusion, Denies depression and Reports memory loss Endocrine: Endocrine: Denies fatigue Hematologic/Lymphatic: Hematologic/Lymphatic: Denies easy bleeding, Denies easy bruising and Denies lymphadenopathy [facility] Past Medical History Medical History (Updated 09/17/19 @ 10:53 by Jamee Rico PA-C) Hepatocellular carcinoma Hyperammonemia 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
[2019-09-18] VITALS (10 sets, daily range): BP systolic 103–120; BP diastolic 51–59; PULSE 88–102; RESP 18–22; TEMP 36–36.9; O2SAT 95–97
[2019-09-18] MEDS: SODIUM CHLORIDE 0.9% IV 1,000 ML 75 ML IV CONT (02:00)
[2019-09-18 05:15] LABS: Basophils Absolute Auto 0.1 K/mm3 (0.0-0.1); Basophils Percent Auto 0.9 % (0.2-1.2); Eosinophils Absolute Auto 0.3 K/mm3 (0-0.3); Eosinophils Percent Auto 2.9 % (0-4.4); Hematocrit 38.7 % (42.0-52.0); Hemoglobin 12.7 g/dL (14.0-18.0); Immature Granulocyte Absolute 0.07 K/mm3 (0.00-0.031); Immature Granulocyte Percent A 0.8 % (0-0.5); Lymphocytes Absolute Auto 2.14 K/mm3 (0.9-3.2); Lymphocytes Percent Auto 24.8 % (18.3-44.2); Mean Corpuscular HGB Conc 32.8 g/dl (32-36); Mean Corpuscular Hemoglobin 32.6 pg (26-34); Mean Corpuscular Volume 99.5 fl (80-100); Mean Platelet Volume 8.6 fl (7.4-10.4); Monocytes Absolute Auto 0.6 K/mm3 (0.1-0.6); Monocytes Percent Auto 7.2 % (2.6-8.5); Neutrophils Absolute Auto 5.5 K/mm3 (1.3-6.7); Neutrophils Percent Auto 63.4 % (45.5-73.1); Platelet Count Result 156 k/mm3 (150-375); Red Blood Count 3.89 M/mm3 (4.6-6.20); Red Cell Distribution Width 18.9 % (11.5-14.5); White Blood Count 8.6 K/mm3 (4.5-10.0)
[2019-09-18 05:23] LABS: Ammonia < 9 umol/L (9-30)
[2019-09-18 05:25] LABS: Lactic Acid Reflex 1.1 mmol/L (0.7-2.1)
[2019-09-18 05:26] LABS: Alanine Aminotransferase 36 U/L (4-50); Alkaline Phosphatase 92 U/L (38-126); Aspartate Amino Transferase 28 U/L (17-59); Bilirubin,Total 1.1 mg/dL (0.2-1.3); Blood Urea Nitrogen 11 mg/dL (9-20); Calcium 8.3 mg/dL (8.4-10.2); Carbon Dioxide 29 mmol/L (22-30); Chloride 109 mmol/L (98-107); Estimated CRCL calculation 91 ml/min; Estimated Glomerular Filt Rate > 60; Glucose 106 mg/dL (75-110); Potassium 3.8 mmol/L (3.4-5.0); Sodium 142 mmol/L (137-145)
[2019-09-18] MEDS: FENTANYL 12 MCG/HR PATCH TRANSDERM (08:02)
[2019-09-18] MEDS: PANTOPRAZOLE 40 MG TABLET PO ×2 (08:03→22:45)
[2019-09-18] MEDS: LACTULOSE 20 GM/30 ML UDC PO ×2 (08:03→17:27)
[2019-09-18] MEDS: lisinopriL 20 MG TABLET PO (08:04)
[2019-09-18] MEDS: ENOXAPARIN 40 MG/0.4 ML SYRINGE SUB-Q (08:04)
--- NOTE | 2019-09-18 10:21 | ECG_ITS ---
Measurements Intervals [place] Rate: 90 P: 16 SD: 147 QRS: -14 QRSD: 97 T: 32 QT: 353 QTc: 434 Interpretive Statements SINUS RHYTHM NORMAL ECG Electronically Signed On 09-18-2019 10:52:15 CDT by Garfield Mohan D.O.
--- NOTE | 2019-09-18 10:26 | PM.IMPN ---
Progress Note: A&P Assessment and Plan (1) Syncope: Code(s): R55 - Syncope and collapse Status: Acute Assessment and Plan: The pt had an episode of syncope at the [facility]. He reports that he was trying to get up from bed to go to the bathroom and felt very weak and lightheaded. Echo revealed normal left ventricular systolic function of 60-65%, mildly increased LV wall thickness, grade 1 diastolic dysfunction, mild mitral and tricuspid valve regurgitation, thickened pericardium, and small pericardial effusion. CT brain wo contrast revealed an old left medial orbital wall fracture with no evidence of hemorrhage, mass lesion, or acute infarction. Carotid doppler revealed <50% stenosis bilaterally. Telemetry was reviewed from today and revealed normal sinus rhyhtm with one episode of sinus tachycardia. Will discuss if neuro/oncology would like to repeat MRI as the pt had an MRI 08/30 which revealed no evidence of metastatic disease (2) Acute UTI: Code(s): N39.0 - Urinary tract infection, site not specified Status: Acute Assessment and Plan: UA is consistent with UTI. Urine culture revealed coagulase negative staphylococcus. Sensitivities are pending. Will switch to zosyn Await sensitivities (3) Hepatocellular carcinoma: Code(s): C22.0 - Liver cell carcinoma Status: Acute Assessment and Plan: The pt has a hx of hepatocellular carcinoma with spinal metastases. His oncologist is Dr. Rueda. Dr. Rueda ordered CT chest, abdomen, and pelvis with contrast. Will consult Dr. Rueda, recommendations are greatly appreciated (4) Hypertension: Code(s): I10 - Essential (primary) hypertension Status: Acute Assessment and Plan: BP reviewed and stable. Continue lisinopril (5) Hypocalcemia: Code(s): E83.51 - Hypocalcemia Status: Acute Assessment and Plan: Ca is stable today at 8.3. 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 Oncology and neurology are on board. 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 He is having loose stools and ammonia is WNL so I decreased lactulose to 20mg PO BID. CT abd/pelvis revealed colitis which may explain his loose stools. Ammonia is <9 today. Continue to monitor ammonia Continue lactulose 20mg BID (8) Acute dehydration: Code(s): E86.0 - Dehydration Status: Resolved Assessment and Plan: The pt is tolerating PO intake well. Clinically, he appears hydrated. Discontinue IV fluids as dehydration has resolved (9) TSH elevation: Code(s): R79.89 - Other specified abnormal findings of blood chemistry Status: Acute Assessment and Plan: This may be subclinical due to acute illness or due to lenvima. Will check fT3 and fT4. Lenvima is on hold at this time per Dr. Rueda (10) Duodenitis: Code(s): K29.80 - Duodenitis without bleeding Status: Acute Assessment and Plan: The CT abd/pelvis revealed duodenitis which may be secondary to radiation or PUD. 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 I discussed the case with Dr. Rueda and we will begin therapeutic lovenox. Lovenox SQ (12) Colitis: Code(s): K52.9 - Noninfective gastroenteritis and colitis, unspec
[2019-09-18 11:10] LABS: Troponin I < 0.012 ng/mL (0.000-0.034)
[2019-09-18] MEDS: DOCUSATE SODIUM 100 MG CAPSULE PO (11:44)
[2019-09-18] MEDS: DEXAMETHASONE 2 MG TABLET PO (11:45)
[2019-09-18] MEDS: ENOXAPARIN 60 MG/0.6 ML SYRINGE 50 MG SUB-Q (12:45)
[2019-09-18] MEDS: GABAPENTIN 300 MG CAPSULE PO ×2 (13:05→22:44)
[2019-09-18] MEDS: CYCLOBENZAPRINE HCL 10 MG TABLET PO ×2 (13:05→22:45)
[2019-09-18 13:52] LABS: Free T4 Free Thyroxine 0.72 ng/mL (0.78-2.19)
--- NOTE | 2019-09-18 18:25 | WPDONCPN ---
Progress Note: A&P Assessment and Plan (1) Hepatocellular carcinoma: Code(s): C22.0 - Liver cell carcinoma Status: Acute Assessment and Plan: 1. Review of CT scan report and images vs PET / CT scan from Jul : right hepatic mass decreased by 9 mm with stability of periportal LN and adrenal nodule. The mediastinal adenopathy resolved. 2. Currently, off Lenvima 3 Overall, improvement radiographically and biochemically. 4. 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 On Lovenox 1 mg/kg every 12 hours (3) Colitis: Code(s): K52.9 - Noninfective gastroenteritis and colitis, unspecified Status: Acute Assessment and Plan: w/u in progress on Flagyl and Zosyn Time Spent With Patient Time with patient: less than 15 minutes Review of Systems Review of Systems All systems reviewed & are unremarkable except as noted in HPI and below Constitutional Constitutional: Denies anorexia, Denies fatigue, Denies fever(s), Reports malaise, Denies night sweats, Reports snoring, Reports weakness and Denies weight loss Eyes Eyes: Denies blurry vision ENT Denies dysphagia, Denies epistaxis, Denies mouth lesions, Denies mouth pain, Denies odynophagia, Reports disequilibrium and Denies sore throat Cardiovascular Cardiovascular: Reports chest pain at rest, Denies leg edema and Denies dyspnea Respiratory Respiratory: Denies cough, Denies dyspnea and Reports snoring Gastrointestinal Gastrointestinal: Reports abdominal pain, Denies constipation, Denies dysphagia, Reports diarrhea, Denies nausea, Denies odynophagia and Denies vomiting Genitourinary Genitourinary: Denies hematuria and Reports dysuria Musculoskeletal Musculoskeletal: Denies myalgias, Reports arthralgias and Denies muscle weakness Integumentary/Breasts Skin/Breast: Denies rash and Denies unusual bruising Neurologic Reports confusion, Reports lack of coordination, Reports memory loss, Reports paresthesias, Reports disequilibrium and Reports weakness Psychiatric Psychiatric: Denies anxiety, Reports confusion, Denies depression and Reports memory loss Endocrine Endocrine: Denies fatigue Hematologic/Lymphatic Hematologic/Lymphatic: Denies easy bleeding, Denies easy bruising and Denies lymphadenopathy Exam Const: General: cooperative, comfortable, no acute distress and confusion Orientation/consciousness: patient oriented x3 and confusion Eyes: General: appearance normal, both eyes and all related structures Pupils: Equal, round and reactive pupils present Neck: Neck: normal visual inspection, full ROM, no lymphadenopathy and supple Resp: Effort & Inspection: normal respiratory effort Auscultation: clear to auscultation bilaterally Percussion: percussion normal Cardio: Jugular venous distension: no JVD Rate: regular rate Rhythm: regular rhythm GI: Inspection: normal to inspection : General: Yes no CVA tenderness Back/Spine/Pelvis: Back: no CVA tenderness Skin: General skin exam: normal color Rashes: no rashes Neuro: General: patient oriented x3, CN's II-XI intact bilaterally and confusion Cranial nerves: Yes Equal, round and reactive pupils present Speech: normal speech Gait exam (Neuro): Assisted gait required and Assistive device used Motor exam (neuro): Abnormal motor strength present Extrem: General: no calf tenderness, abnormal gait and pedal edema Psych: Speech and movement: Slurred speech present Affect: normal affect Attitude: cooperative Thought process: Normal thought process present Objective Data Vital Signs Vital Signs: Vital Signs - 24 hr 09/17/19 20:00 09/17/19 22:00 09/18/19 00:00 Temperature 37.3 C Pulse Rate 95 100 88 Respiratory Rate 20 Blood Pressur
[2019-09-18 20:35] LABS: Hematocrit 34.7 % (42.0-52.0); Hemoglobin 11.7 g/dL (14.0-18.0); Mean Corpuscular HGB Conc 33.7 g/dl (32-36); Mean Corpuscular Volume 97.7 fl (80-100); Mean Platelet Volume 8.9 fl (7.4-10.4); Platelet Count Result 172 k/mm3 (150-375); Red Blood Count 3.55 M/mm3 (4.6-6.20); Red Cell Distribution Width 18.6 % (11.5-14.5); White Blood Count 9.4 K/mm3 (4.5-10.0)
[2019-09-18] MEDS: ENOXAPARIN 100 MG/ML SYRINGE 90 MG SUB-Q (22:45)
[2019-09-19] VITALS: PULSE 89
[2019-09-19 04:00] VITALS: PULSE 91
[2019-09-19 05:11] LABS: Ammonia < 9 umol/L (9-30)
[2019-09-19 05:16] LABS: Alanine Aminotransferase 32 U/L (4-50); Alkaline Phosphatase 95 U/L (38-126); Aspartate Amino Transferase 27 U/L (17-59); Bilirubin,Total 1.1 mg/dL (0.2-1.3); Blood Urea Nitrogen 10 mg/dL (9-20); Calcium 8.3 mg/dL (8.4-10.2); Carbon Dioxide 29 mmol/L (22-30); Chloride 107 mmol/L (98-107); Estimated CRCL calculation 72 ml/min; Estimated Glomerular Filt Rate > 60; Glucose 115 mg/dL (75-110); Magnesium 2.1 mg/dL (1.6-2.3); Potassium 3.8 mmol/L (3.4-5.0); Sodium 139 mmol/L (137-145)
[2019-09-19] MEDS: GABAPENTIN 300 MG CAPSULE PO ×3 (05:27→20:03)
[2019-09-19 06:00] VITALS: BP 143/72; PULSE 89; RESP 20; TEMP 36.9; O2SAT 99
[2019-09-19 08:00] VITALS: BP 100/52; PULSE 94; PULSE 96
[2019-09-19] MEDS: PANTOPRAZOLE 40 MG TABLET PO ×2 (08:10→20:04)
[2019-09-19] MEDS: ENOXAPARIN 100 MG/ML SYRINGE 90 MG SUB-Q ×2 (08:11→20:03)
[2019-09-19] MEDS: LACTULOSE 20 GM/30 ML UDC PO (08:11)
[2019-09-19] MEDS: lisinopriL 20 MG TABLET PO (08:12)
[2019-09-19] MEDS: CYCLOBENZAPRINE HCL 10 MG TABLET PO (08:18)
--- NOTE | 2019-09-19 10:44 | PM.IMPN ---
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 I discussed the case with Dr. Rueda and we will begin therapeutic lovenox. Lovenox SQ, the pt can stay on lovenox at discharged since he will be discharged back to the nursing facility (2) Syncope: Code(s): R55 - Syncope and collapse Status: Resolved Assessment and Plan: The pt had an episode of syncope at the [facility]. He reports that he was trying to get up from bed to go to the bathroom and felt very weak and lightheaded. Echo revealed normal left ventricular systolic function of 60-65%, mildly increased LV wall thickness, grade 1 diastolic dysfunction, mild mitral and tricuspid valve regurgitation, thickened pericardium, and small pericardial effusion. CT brain wo contrast revealed an old left medial orbital wall fracture with no evidence of hemorrhage, mass lesion, or acute infarction. Carotid doppler revealed <50% stenosis bilaterally. Telemetry reviewed with normal sinus rhythm and no evidence of AV block or bradycardia. I suspect that this episode was reflex mediated in the setting of hypovolemia/dehydration and UTI as he was getting up to go to the bathroom. His orthostatic BP was checked here and negative for orthostatic hypotension. (3) Acute UTI: Code(s): N39.0 - Urinary tract infection, site not specified Status: Acute Assessment and Plan: UA is consistent with UTI. Urine culture revealed coagulase negative staphylococcus. Will de-escalate antibiotics. Begin PO cipro (4) Hepatocellular carcinoma: Code(s): C22.0 - Liver cell carcinoma Status: Acute Assessment and Plan: The pt has a hx of hepatocellular carcinoma with spinal metastases. I discussed his care with Dr. Rueda and we will proceed with brain MRI due to the patient's confusion. Plan for brain MRI w and wo contrast Dr. Rueda is on board, recommendations are greatly appreciated (5) Hypertension: Code(s): I10 - Essential (primary) hypertension Status: Acute Assessment and Plan: BP reviewed and stable. Continue lisinopril (6) Hypocalcemia: Code(s): E83.51 - Hypocalcemia Status: Acute Assessment and Plan: Ca is stable at 8.3. 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 Oncology and neurology are on board. 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 He is having loose stools and ammonia is WNL so I decreased lactulose to 20mg PO BID. CT abd/pelvis revealed colitis which may explain his loose stools. Ammonia appears stable. Continue lactulose 20mg BID Repeat ammonia in 1 week outpatient on new dose of lactulose (9) Acute dehydration: Code(s): E86.0 - Dehydration Status: Resolved Assessment and Plan: The pt is tolerating PO intake well. Clinically, he appears hydrated. (10) TSH elevation: Code(s): R79.89 - Other specified abnormal findings of blood chemistry Status: Acute Assessment and Plan: This may be subclinical due to acute illness or due to lenvima. fT4 is slightly reduced at 0.72. fT3 is pending. Lenvima is on hold at this time per Dr. Rueda (11) Duodenitis: Code(s): K29.80 - Duodenitis without bleeding Status: Acute Assessment and Plan: The CT abd/pelvis revealed duodenitis which may be secondary
[2019-09-19] MEDS: DEXAMETHASONE 2 MG TABLET PO (11:54)
[2019-09-19] MEDS: CIPROFLOXACIN 500 MG TAB PO ×2 (11:54→22:15)
[2019-09-19] MEDS: metroNIDAZOLE 250 MG TABLET 500 MG PO ×2 (13:44→22:16)
[2019-09-19 14:00] VITALS: BP 93/54; PULSE 97; RESP 21; TEMP 37.5; O2SAT 98
--- NOTE | 2019-09-19 16:25 | WPDONCPN ---
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 Recent CT scan shows improvement in liver neoplasm, with resolution of the adenopathy of the chest and stable adenopathy in the upper abdomen 2. 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 This may increase his pain. He continues to hallucinates I would keep him here for at least 48 more hours to improve his mental / cognition condition Time Spent With Patient Time with patient: 15 - 25 minutes Review of Systems Review of Systems All systems reviewed & are unremarkable except as noted in HPI and below Constitutional Constitutional: Denies anorexia, Denies fatigue, Denies fever(s), Reports malaise, Denies night sweats, Reports snoring, Reports weakness and Denies weight loss Eyes Eyes: Denies blurry vision ENT Denies dysphagia, Denies epistaxis, Denies mouth lesions, Denies mouth pain, Denies odynophagia, Reports disequilibrium and Denies sore throat Cardiovascular Cardiovascular: Reports chest pain at rest, Denies leg edema and Denies dyspnea Respiratory Respiratory: Denies cough, Denies dyspnea and Reports snoring Gastrointestinal Gastrointestinal: Reports abdominal pain, Denies constipation, Denies dysphagia, Reports diarrhea, Denies nausea, Denies odynophagia and Denies vomiting Genitourinary Genitourinary: Denies hematuria and Reports dysuria Musculoskeletal Musculoskeletal: Denies myalgias, Reports arthralgias and Denies muscle weakness Integumentary/Breasts Skin/Breast: Denies rash and Denies unusual bruising Neurologic Reports confusion, Reports lack of coordination, Reports memory loss, Reports paresthesias, Reports disequilibrium and Reports weakness Comments: hallucinations Psychiatric Psychiatric: Denies anxiety, Reports confusion, Denies depression and Reports memory loss Endocrine Endocrine: Denies fatigue Hematologic/Lymphatic Hematologic/Lymphatic: Denies easy bleeding, Denies easy bruising and Denies lymphadenopathy Exam Const: General: cooperative, comfortable, no acute distress and confusion Orientation/consciousness: patient oriented x3 and confusion HENMT: General nose exam: Normal nares present Mouth: Yes dry mucous membranes Eyes: General: appearance normal, both eyes and all related structures Pupils: Equal, round and reactive pupils present Neck: Neck: normal visual inspection, full ROM, no lymphadenopathy and supple Resp: Effort & Inspection: normal respiratory effort Auscultation: clear to auscultation bilaterally Percussion: percussion normal Cardio: Jugular venous distension: no JVD Rate: regular rate Rhythm: regular rhythm GI: Inspection: normal to inspection : General: Yes no CVA tenderness Back/Spine/Pelvis: Back: no CVA tenderness Skin: General skin exam: normal color Rashes: no rashes Neuro: General: patient oriented x3, CN's II-XI intact bilaterally and confusion Cranial nerves: Yes Equal, round and reactive pupils present Cognition (Neuro): abnormal cognition Speech: normal speech Gait exam (Neuro): Assisted gait required and Assistive device used Motor exam (neuro): Abnormal motor strength pres
[2019-09-19] MEDS: FENTANYL 12 MCG/HR PATCH TRANSDERM (16:26)
[2019-09-19] MEDS: SENNOSIDES 8.6 MG TABLET PO (16:37)
[2019-09-19 18:10] LABS: H pylori Ag Stool Not Detected (Not Detected)
[2019-09-19] MEDS: DOCUSATE SODIUM 100 MG CAPSULE PO (20:03)
[2019-09-19 22:00] VITALS: BP 121/66; PULSE 97; RESP 16; TEMP 36.6; O2SAT 93
[2019-09-20] MEDS: metroNIDAZOLE 250 MG TABLET 500 MG PO ×3 (05:32→21:01)
[2019-09-20 06:00] VITALS: BP 118/63; PULSE 90; RESP 20; TEMP 36.3; O2SAT 93
[2019-09-20 06:55] LABS: Alanine Aminotransferase 28 U/L (4-50); Alkaline Phosphatase 87 U/L (38-126); Aspartate Amino Transferase 28 U/L (17-59); Bilirubin,Total 0.9 mg/dL (0.2-1.3); Blood Urea Nitrogen 9 mg/dL (9-20); Calcium 8.5 mg/dL (8.4-10.2); Carbon Dioxide 31 mmol/L (22-30); Chloride 108 mmol/L (98-107); Estimated CRCL calculation 80 ml/min; Estimated Glomerular Filt Rate > 60; Glucose 111 mg/dL (75-110); Potassium 3.6 mmol/L (3.4-5.0); Sodium 139 mmol/L (137-145)
[2019-09-20] MEDS: CIPROFLOXACIN 500 MG TAB PO ×2 (08:14→20:59)
[2019-09-20] MEDS: DEXAMETHASONE 0.5 MG TABLET PO (08:14)
[2019-09-20] MEDS: GABAPENTIN 300 MG CAPSULE PO ×2 (08:14→21:01)
[2019-09-20] MEDS: DOCUSATE SODIUM 100 MG CAPSULE PO ×2 (08:14→21:04)
[2019-09-20] MEDS: ENOXAPARIN 100 MG/ML SYRINGE 90 MG SUB-Q ×2 (08:15→20:59)
[2019-09-20] MEDS: lisinopriL 20 MG TABLET PO (08:16)
[2019-09-20] MEDS: LACTULOSE 20 GM/30 ML UDC PO (08:16)
[2019-09-20] MEDS: PANTOPRAZOLE 40 MG TABLET PO ×2 (08:16→21:01)
[2019-09-20] MEDS: SENNOSIDES 8.6 MG TABLET PO ×2 (08:17→16:02)
--- NOTE | 2019-09-20 11:54 | PM.IMPN ---
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 I discussed the case with Dr. Rueda who recommends we begin therapeutic lovenox. Lovenox 1mg/kg SQ Q12HR Will monitor H & H and monitor closely for bleeding complications (2) Syncope: Code(s): R55 - Syncope and collapse Status: Resolved Assessment and Plan: The pt had an episode of syncope at the [facility]term. He reports that he was trying to get up from bed to go to the bathroom and felt very weak and lightheaded. Echo revealed normal left ventricular systolic function of 60-65%, mildly increased LV wall thickness, grade 1 diastolic dysfunction, mild mitral and tricuspid valve regurgitation, thickened pericardium, and small pericardial effusion. CT brain wo contrast revealed an old left medial orbital wall fracture with no evidence of hemorrhage, mass lesion, or acute infarction. Carotid doppler revealed <50% stenosis bilaterally. Telemetry reviewed with normal sinus rhythm and no evidence of AV block or bradycardia. I suspect that this episode was reflex mediated in the setting of hypovolemia/dehydration and UTI as he was getting up to go to the bathroom. His orthostatic BP was checked here and negative for orthostatic hypotension. (3) Acute UTI: Code(s): N39.0 - Urinary tract infection, site not specified Status: Acute Assessment and Plan: UA is consistent with UTI. Urine culture revealed coagulase negative staphylococcus. Continue PO cipro (4) Hepatocellular carcinoma: Code(s): C22.0 - Liver cell carcinoma Status: Acute Assessment and Plan: The pt has a hx of hepatocellular carcinoma with spinal metastases. He underwent brain MRI due to encephalopathy as his mentation was changed from his baseline for approximately 3 weeks per his family. MRI revealed no evidence of acute infarction, hemorrhage, or masses. His encephalopathy is likely due to lenvima which has been on hold since 09/17. His mentation seems to be improving during my discussion with him today as he is more alert and can recall more details of his condition and history. Dr. Rueda is on board, recommendations are greatly appreciated (5) Hypertension: Code(s): I10 - Essential (primary) hypertension Status: Acute Assessment and Plan: BP reviewed and stable. Continue lisinopril (6) Hypocalcemia: Code(s): E83.51 - Hypocalcemia Status: Resolved Assessment and Plan: Calcium is 8.5 today. This is likely improving due to discontinuation of lenvima. 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 Oncology and neurology are on board. Continue follow-up with radiation/oncology (8) Hyperammonemia: Code(s): E72.20 - Disorder of urea cycle metabolism, unspecified Status: Chronic Assessment and Plan: Ammonia was <9 on 09/18. Discussed with Dr. Rueda and we will decrease lactulose to 20mg QD. Continue lactulose 20mg QD Repeat ammonia in 1 week outpatient on new dose of lactulose (9) TSH elevation: Code(s): R79.89 - Other specified abnormal findings of blood chemistry Status: Acute Assessment and Plan: This may be subclinical due to acute illness or due to lenvima. fT4 is slightly reduced at 0.72. fT3 is pending. Lenvima is on hold at this time per Dr. Rueda Repeat TSH w/ reflex in 4 weeks as this was likely induced by lenvima (10) Duodenitis: Code(s): K29.80 - Duodenitis without bleeding
[2019-09-20 14:00] VITALS: BP 100/56; PULSE 95; RESP 16; TEMP 36.6; O2SAT 97
--- NOTE | 2019-09-20 14:24 | PC.NURSE ---
Went to give 1300 dose of Ritalin. Opened the package and there was no medication in the package. I called pharmacy and they requested I send the package down to the pharmacy and they would waste the medication and look into it. They informed me to pull another dose of medication to give to the patient.
[2019-09-20] MEDS: CELECOXIB 200 MG CAPSULE PO (16:02)
[2019-09-20 21:52] VITALS: BP 108/56; PULSE 87; RESP 18; TEMP 36.4; O2SAT 97
[2019-09-21 04:50] LABS: Hematocrit 34.5 % (42.0-52.0); Hemoglobin 11.3 g/dL (14.0-18.0); Mean Corpuscular HGB Conc 32.8 g/dl (32-36); Mean Corpuscular Hemoglobin 32.9 pg (26-34); Mean Corpuscular Volume 100.6 fl (80-100); Platelet Count Result 153 k/mm3 (150-375); Red Blood Count 3.43 M/mm3 (4.6-6.20); Red Cell Distribution Width 18.9 % (11.5-14.5); White Blood Count 8.1 K/mm3 (4.5-10.0)
[2019-09-21 05:09] LABS: Blood Urea Nitrogen 11 mg/dL (9-20); Calcium 8.3 mg/dL (8.4-10.2); Carbon Dioxide 31 mmol/L (22-30); Chloride 106 mmol/L (98-107); Estimated CRCL calculation 80 ml/min; Estimated Glomerular Filt Rate > 60; Glucose 120 mg/dL (75-110); Phosphorus 3.2 mg/dL (2.5-4.5); Potassium 3.7 mmol/L (3.4-5.0); Sodium 138 mmol/L (137-145)
[2019-09-21] MEDS: metroNIDAZOLE 250 MG TABLET 500 MG PO ×3 (05:38→21:03)
[2019-09-21] MEDS: ACETAMINOPHEN 325 MG TABLET 650 MG PO (05:39)
[2019-09-21 06:00] VITALS: BP 108/59; PULSE 88; RESP 20; TEMP 36.3; O2SAT 90
[2019-09-21] MEDS: DEXAMETHASONE 0.5 MG TABLET PO (08:02)
[2019-09-21] MEDS: LACTULOSE 20 GM/30 ML UDC PO (08:03)
[2019-09-21] MEDS: GABAPENTIN 300 MG CAPSULE PO ×2 (08:03→21:03)
[2019-09-21] MEDS: lisinopriL 20 MG TABLET PO (08:03)
[2019-09-21] MEDS: CIPROFLOXACIN 500 MG TAB PO ×2 (08:04→21:03)
[2019-09-21] MEDS: CELECOXIB 200 MG CAPSULE PO ×2 (08:04→16:42)
[2019-09-21] MEDS: ENOXAPARIN 100 MG/ML SYRINGE 90 MG SUB-Q ×2 (08:04→21:03)
[2019-09-21] MEDS: PANTOPRAZOLE 40 MG TABLET PO ×2 (08:05→21:03)
[2019-09-21] MEDS: SENNOSIDES 8.6 MG TABLET PO ×2 (08:05→16:42)
[2019-09-21] MEDS: DOCUSATE SODIUM 100 MG CAPSULE PO ×2 (08:07→21:02)
--- NOTE | 2019-09-21 11:34 | PM.IMPN ---
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 I discussed the case with Dr. Rueda who recommends we begin therapeutic lovenox. Lovenox 1mg/kg SQ Q12HR Will monitor H & H and monitor closely for bleeding complications Will discuss discharge plans for anticoagulton with Dr. Rueda (2) Syncope: Code(s): R55 - Syncope and collapse Status: Resolved Assessment and Plan: The pt had an episode of syncope at the retirement. He reports that he was trying to get up from bed to go to the bathroom and felt very weak and lightheaded. Echo revealed normal left ventricular systolic function of 60-65%, mildly increased LV wall thickness, grade 1 diastolic dysfunction, mild mitral and tricuspid valve regurgitation, thickened pericardium, and small pericardial effusion. CT brain wo contrast revealed an old left medial orbital wall fracture with no evidence of hemorrhage, mass lesion, or acute infarction. Carotid doppler revealed <50% stenosis bilaterally. Telemetry reviewed with normal sinus rhythm and no evidence of AV block or bradycardia. I suspect that this episode was reflex mediated in the setting of hypovolemia/dehydration and UTI as he was getting up to go to the bathroom. His orthostatic BP was checked here and negative for orthostatic hypotension. (3) Acute UTI: Code(s): N39.0 - Urinary tract infection, site not specified Status: Acute Assessment and Plan: UA is consistent with UTI. Urine culture revealed coagulase negative staphylococcus. Continue PO cipro. 7 days of antibiotic therapy will be complete 09/22. (4) Hepatocellular carcinoma: Code(s): C22.0 - Liver cell carcinoma Status: Acute Assessment and Plan: The pt has a hx of hepatocellular carcinoma with spinal metastases. He underwent brain MRI due to encephalopathy as his mentation was changed from his baseline for approximately 3 weeks per his family. The pt also remembers halluciations which he reports have subsided. MRI revealed no evidence of acute infarction, hemorrhage, or masses. His encephalopathy is likely due to lenvima which has been on hold since 09/17. His mentation continues to improve. Dr. Rueda is on board, recommendations are greatly appreciated I anticipate that he will be able to discharge tomorrow. Will await Dr. Rueda's recommendations on what the pt will discharge on from an oncology standpoint since [facility] is being held at this time. 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 Rueda, the pateint's paraplegia is probably permanent. Continue follow-up with radiation/oncology Continue PT/OT for upper extremity and core strength (6) Hypertension: Code(s): I10 - Essential (primary) hypertension Status: Acute Assessment and Plan: BP reviewed and stable. Continue lisinopril (7) Hypocalcemia: Code(s): E83.51 - Hypocalcemia Status: Resolved Assessment and Plan: Calcium is 8.3. (8) Hyperammonemia: Code(s): E72.20 - Disorder of urea cycle metabolism, unspecified Status: Chronic Assessment and Plan: Ammonia was <9 on 09/18. Discussed with Dr. Rueda and we will decrease lactulose to 20mg QD. Continue lactulose 20mg QD Repeat ammonia in 1 week outpatient on new dose of lactulose (9) TSH elevation: Code(s): R79.89 - Other specified abnormal findings of blood chemistry Status: Acute Assessment and Plan: This may be subclinical due to acute illness or due to l
[2019-09-21 14:00] VITALS: BP 110/68; PULSE 72; RESP 16; TEMP 36.6; O2SAT 97
[2019-09-21 22:00] VITALS: BP 98/72; PULSE 98; RESP 18; TEMP 36.6; O2SAT 93
[2019-09-22 03:50] LABS: Glucose Point of Care 99 (65-105)
[2019-09-22 04:49] LABS: Triiodothyronine T3 Free 2.1 pg/mL (2.3-4.2)
[2019-09-22] MEDS: metroNIDAZOLE 250 MG TABLET 500 MG PO ×2 (05:42→13:32)
[2019-09-22 05:53] LABS: Hematocrit 34.3 % (42.0-52.0); Hemoglobin 11.4 g/dL (14.0-18.0); Mean Corpuscular HGB Conc 33.2 g/dl (32-36); Mean Corpuscular Hemoglobin 33.5 pg (26-34); Mean Corpuscular Volume 100.9 fl (80-100); Platelet Count Result 190 k/mm3 (150-375); Red Cell Distribution Width 19.1 % (11.5-14.5); White Blood Count 8.9 K/mm3 (4.5-10.0)
[2019-09-22 05:55] LABS: Blood Urea Nitrogen 14 mg/dL (9-20); Calcium 8.1 mg/dL (8.4-10.2); Carbon Dioxide 28 mmol/L (22-30); Chloride 105 mmol/L (98-107); Estimated CRCL calculation 91 ml/min; Estimated Glomerular Filt Rate > 60; Glucose 130 mg/dL (75-110); Phosphorus 2.7 mg/dL (2.5-4.5); Potassium 3.4 mmol/L (3.4-5.0); Sodium 137 mmol/L (137-145)
[2019-09-22 06:00] VITALS: BP 102/60; PULSE 94; RESP 16; TEMP 36.4; O2SAT 93
[2019-09-22 08:10] LABS: Folic Acid 3.5 ng/mL (2.76->20)
[2019-09-22] MEDS: CIPROFLOXACIN 500 MG TAB PO (08:52)
[2019-09-22] MEDS: DEXAMETHASONE 0.5 MG TABLET PO (08:52)
[2019-09-22] MEDS: GABAPENTIN 300 MG CAPSULE PO (08:52)
[2019-09-22] MEDS: PANTOPRAZOLE 40 MG TABLET PO (08:52)
[2019-09-22] MEDS: SENNOSIDES 8.6 MG TABLET PO ×2 (08:52→16:34)
[2019-09-22] MEDS: LACTULOSE 20 GM/30 ML UDC PO (08:52)
[2019-09-22] MEDS: lisinopriL 20 MG TABLET PO (08:52)
[2019-09-22] MEDS: FENTANYL 12 MCG/HR PATCH TRANSDERM (08:53)
[2019-09-22] MEDS: ENOXAPARIN 100 MG/ML SYRINGE 90 MG SUB-Q (08:53)
[2019-09-22] MEDS: DOCUSATE SODIUM 100 MG CAPSULE PO (08:56)
[2019-09-22] MEDS: CELECOXIB 200 MG CAPSULE PO ×2 (11:51→16:34)
[2019-09-22 14:00] VITALS: BP 99/54; PULSE 95; RESP 16; TEMP 36.7; O2SAT 96
--- NOTE | 2019-09-22 15:52 | PM.DS ---
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ode(s): C79.49 - Secondary malignant neoplasm of other parts of nervous system Status: Acute (6) Hypertension: Code(s): I10 - Essential (primary) hypertension Status: Acute (7) Hypocalcemia: Code(s): E83.51 - Hypocalcemia Status: Resolved (8) Hyperammonemia: Code(s): E72.20 - Disorder of urea cycle metabolism, unspecified Status: Chronic (9) TSH elevation: Code(s): R79.89 - Other specified abnormal findings of blood chemistry Status: Acute (10) Duodenitis: Code(s): K29.80 - Duodenitis without bleeding Status: Acute Assessment and Plan: (11) Colitis: Code(s): K52.9 - Noninfective gastroenteritis and colitis, unspecified Status: Acute (12) Chest pain: Code(s): R07.9 - Chest pain, unspecified Status: Chronic Assessment and Plan: The pt reports chronic right sided chest pain and right arm pain following his spinal surgery. He has no prior hx of angina before his spinal surgery. I discussed this with Dr. Rueda who suspects that this pain is due to referred pain from his spinal surgery and metastatic disease. He is being treated with fentanyl patches for this pain. He reports that his pain is well-controlled today. Will continue to monitor DS: Summary Hospital Course Reason for hospitalization: Mr. Mckinney is a 64 y.o. male with PMH significant for hepatocellular carcinoma diagnosed 07/2019 with metastatic disease to T3 s/p laminectomy of T2 and T3 with chronic paraplegia, hx of hyperammonemia, and HTN who presented to the ED via EMS from [facility] after a syncopal episode. Per skilled nursing reports, the pt was transferring from bed to use the bathroom when the episode occurred. Initial workup in the ED revealed CBC with WBC 9.2, Hb 13.1, Hct 39.1, lactic acid 2.3, calcium 7.7, ammonia <9, troponin <0.012, unremarkable EKG without evidence of ischemia, albumin 3.0, and UA consistent with UTI. The pt was treated with IV ceftriaxone and IV fluids and admitted to the hospitalist service for further workup and treatment. The patient's mentation was slow at admission and he was forgetful of certain words. Neurology and oncology were consulted. Dr. Rueda recommended CT chest/abd/pelvis with contrast. CT chest/abd/pelvis revealed primary hepatic malignancy, periportal lymphadenopathy consistent with his metastatic hepatocellular carcinoma, metastatic T3 disease, 10mm right adrenal mass, rectosigmoid colitis, duodenitis secondary to radiation or peptic ulcer disease, and thrombus in the main portal vein and left and right portal veins. I called to discuss these findings with Dr. Rueda. Dr. Rueda advised that the portal vein thrombosis is new and recommended starting therapeutic lovenox SQ. He was treated with PPI for duodenitits and H. pylori stool test was ordered which was negative. Urine culture was positive for coagulase negative staphylococcus. He was treated with zosyn initially for his colitis and UTI and abx therapy was switched to ciprofloxacin and metronidazole once sensitivites were available. His stool cultures were negative. Dr. Rueda held lenvima as well as some of his other pain medications. His encephalopathy improved daily with his medication adjustments and his mentation significantly improved by the day of
--- NOTE | 2019-09-22 17:11 | WPDONCPN ---
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ode(s): C79.49 - Secondary malignant neoplasm of other parts of nervous system Status: Acute Assessment and Plan: as above (4) Encephalopathy acute: Code(s): G93.40 - Encephalopathy, unspecified Status: Acute Assessment and Plan: resolved due to side effects of his analgesic regimen continue with his current meds and only adjust his breakthrough medication for any worsening pain Time Spent With Patient Time with patient: 15 - 25 minutes Review of Systems Review of Systems All systems reviewed & are unremarkable except as noted in HPI and below Constitutional Constitutional: Denies anorexia, Denies fatigue, Denies fever(s), Reports malaise, Denies night sweats, Reports snoring, Reports weakness and Denies weight loss Eyes Eyes: Denies blurry vision ENT Denies dysphagia, Denies epistaxis, Denies mouth lesions, Denies mouth pain, Denies odynophagia, Reports disequilibrium and Denies sore throat Cardiovascular Cardiovascular: Reports chest pain at rest, Denies leg edema and Denies dyspnea Respiratory Respiratory: Denies cough, Denies dyspnea and Reports snoring Gastrointestinal Gastrointestinal: Reports abdominal pain, Denies constipation, Denies dysphagia, Reports diarrhea, Denies nausea, Denies odynophagia and Denies vomiting Genitourinary Genitourinary: Denies hematuria and Reports dysuria Musculoskeletal Musculoskeletal: Denies myalgias, Reports arthralgias and Denies muscle weakness Integumentary/Breasts Skin/Breast: Denies rash and Denies unusual bruising Neurologic Reports as per HPI, Reports lack of coordination, Reports memory loss, Reports paresthesias, Reports disequilibrium and Reports weakness Psychiatric Psychiatric: Reports as per HPI, Denies anxiety, Denies depression and Reports memory loss Endocrine Endocrine: Denies fatigue Hematologic/Lymphatic Hematologic/Lymphatic: Denies easy bleeding, Denies easy bruising and Denies lymphadenopathy Exam Const: General: cooperative, comfortable, no acute distress and confusion Orientation/consciousness: patient oriented x3 and confusion HENMT: General nose exam: Normal nares present Mouth: Yes dry mucous membranes Eyes: General: appearance normal, both eyes and all related structures Pupils: Equal, round and reactive pupils present Neck: Neck: normal visual inspection, full ROM, no lymphadenopathy and supple Resp: Effort & Inspection: normal respiratory effort Auscultation: clear to auscultation bilaterally Percussion: percussion normal Cardio: Jugular venous distension: no JVD Rate: regular rate Rhythm: regular rhythm GI: Inspection: normal to inspection : General: Yes no CVA tenderness Back/Spine/Pelvis: Back: no CVA tenderness Skin: General skin exam: normal color Rashes: no rashes Neuro: General: patient oriented x3, CN's II-XI intact bilaterally and confusion Cranial nerves: Yes Equal, round and reactive pupils present Cognition (Neuro): normal cognition Speech: normal speech Gait exam (Neuro): Assisted gait required and Assistive device used Motor exam (neuro): Abnormal motor strength present Extrem: General: no calf tenderness, abnormal gait and pedal edema Psych: Mental Status: mental status grossly normal Speech and movement: Slurred speech present Affect: normal affect Attitude: cooperative Thought process: Normal thought process present Other: altered ment
== END 2019-09-22 18:44 ==
LOC: ANHED 09-17 01:13 → ANH2MED 09-17 01:15
PROVIDERS: Internal Medicine Medical Oncology; Physician Assistant; Admitting Provider Internal Medicine; Emergency Provider Emergency Medicine; PCP Internal Medicine; Visit Provider Hospitalist
DX: N39.0 Urinary tract infection, site not specified (principal); B95.7 Other staphylococcus as the cause of diseases classified elsewhere; K52.9 Noninfective gastroenteritis and colitis, unspecified; E86.0 Dehydration; R55 Syncope and collapse; C22.0 Liver cell carcinoma; C79.49 Secondary malignant neoplasm of other parts of nervous system; I81 Portal vein thrombosis; G82.20 Paraplegia, unspecified; G89.3 Neoplasm related pain (acute) (chronic); R07.9 Chest pain, unspecified; Z98.890 Other specified postprocedural states; G92 Toxic encephalopathy; T39.95XA Adverse effect of unspecified nonopioid analgesic, antipyretic and antirheumatic, initial encounter; I10 Essential (primary) hypertension; E83.51 Hypocalcemia; R79.89 Other specified abnormal findings of blood chemistry; K29.80 Duodenitis without bleeding; E72.20 Disorder of urea cycle metabolism, unspecified; G62.9 Polyneuropathy, unspecified; I08.1 Rheumatic disorders of both mitral and tricuspid valves; Z79.899 Other long term (current) drug therapy; Z87.891 Personal history of nicotine dependence
CPT/HCPCS: 36415; 51701; 70450; 70553; 71045; 71260; 74177; 80053; 80069; 81001; 82140; 82607; 82746; 83605; 83735; 84439; 84443; 84481; 84484; 85025; 85027; 85610; 85730; 87015; 87045; 87046; 87077; 87086; 87088; 87186; 87269; 87272; 87324; 87338; 87427; 87804; 89055; 93005; 93306; 93880; 96361; 96365; 96366; 96367; 96372; 96375; 97110; 97161; 97162; 97165; 97166; 97530; 97535; 99285; A9270; A9577; G0378; J0610; J0696; J1650; J2270; J2543; J7030; J8540; Q9967

== ENCOUNTER 2019-10-03 14:47 | Inpatient (IN) | payer MEDICARE, MEDICAID, SELFPAY ==
[2019-10-03] VITALS (7 sets, daily range): BP systolic 80–104; BP diastolic 44–54; PULSE 95–105; RESP 18–22; TEMP 36.9–38.2; O2SAT 92–95; BMI 26.2
--- NOTE | ~2019-10-03 | XR_ITS ---
XR chest 1V portable DATE: 10/03/2019 15:37 INDICATION: Fever, shortness of breath. History of metastatic liver cancer TECHNIQUE: Portable upright AP chest on 10/03/2019 at 1533 hours COMPARISON: 09/16/2019 portable AP chest 09/18/2019 CT thorax FINDINGS: There is mild prominence of the minor fissure. Heart size appears borderline. There is bord guillermo pulmonary vascular and interstitial prominence. Mild congestive changes should be considered. There are minimal infiltrates and/or atelectasis in the lower lung zones. IMPRESSION: Mild congestive changes and minimal infiltrate or atelectasis in the lower lung zones Reviewed, dictated and finalized at location A. IMPRESSION: Mild congestive changes and minimal infiltrate or atelectasis in th e lower lung zones
--- NOTE | 2019-10-03 15:06 | ECG_ITS ---
Measurements Intervals [place] Rate: 103 P: 22 MO: 138 QRS: -3 QRSD: 93 T: 9 QT: 337 QTc: 442 Interpretive Statements SINUS TACHYCARDIA BORDERLINE ST-T WAVE ABNORMALITY- ANTEROLAT/INF LEADS ABNORMAL ECG Electronically Signed On 10-03-2019 16:01:45 CDT by Garfield Mohan D.O.
[2019-10-03 15:21] LABS: Basophils Percent Auto 0.8 % (0.2-1.2); Eosinophils Absolute Auto 0.1 K/mm3 (0-0.3); Eosinophils Percent Auto 0.9 % (0-4.4); Hematocrit 39.9 % (42.0-52.0); Hemoglobin 12.6 g/dL (14.0-18.0); Immature Granulocyte Absolute 0.06 K/mm3 (0.00-0.031); Immature Granulocyte Percent A 1.1 % (0-0.5); Lymphocytes Absolute Auto 1.59 K/mm3 (0.9-3.2); Lymphocytes Percent Auto 29.8 % (18.3-44.2); Mean Corpuscular HGB Conc 31.6 g/dl (32-36); Mean Corpuscular Volume 104.5 fl (80-100); Mean Platelet Volume 8.8 fl (7.4-10.4); Monocytes Absolute Auto 0.4 K/mm3 (0.1-0.6); Monocytes Percent Auto 6.9 % (2.6-8.5); Neutrophils Absolute Auto 3.2 K/mm3 (1.3-6.7); Neutrophils Percent Auto 60.5 % (45.5-73.1); Nucleated Red Blood Cells Perc 0.4 % (0.0-0.2); Platelet Count Result 265 k/mm3 (150-375); Red Blood Count 3.82 M/mm3 (4.6-6.20); Red Cell Distribution Width 19.9 % (11.5-14.5); White Blood Count 5.3 K/mm3 (4.5-10.0)
[2019-10-03 15:33] LABS: Blood Urea Nitrogen 24 mg/dL (9-20); Calcium 7.6 mg/dL (8.4-10.2); Carbon Dioxide 24 mmol/L (22-30); Chloride 107 mmol/L (98-107); Estimated CRCL calculation 53 ml/min; Estimated Glomerular Filt Rate > 60; Glucose 89 mg/dL (75-110); Potassium 3.9 mmol/L (3.4-5.0); Sodium 138 mmol/L (137-145)
--- NOTE | 2019-10-03 15:53 | ED.SOB ---
HPI - SOB/Dyspnea General Chief Complaint: Shortness of Breath/Dyspnea Stated Complaint: SOB Time Seen by Provider: 10/03/19 15:00 Source: EMS and old records reviewed Mode of arrival: EMS Limitations: clinical condition and dementia History of Present Illness HPI Narrative: 64 m poor historian notes sob and a cough but really cannot elaborate beyond that low grade fever here resides at de known to house covid pts though he is paraplegic from spine surgery known to have hepatocellular ca and portal thrombosis at recent hospitalization here Related Data Home Medications Medication Instructions Recorded Confirmed benzonatate 100 mg PO TID PRN 08/20/19 09/17/19 docusate sodium 100 mg PO BID 08/20/19 09/17/19 lisinopril 20 mg PO DAILY 08/20/19 09/17/19 ondansetron 4 mg PO Q8H PRN 08/20/19 09/17/19 pantoprazole 40 mg PO QAM 08/20/19 09/17/19 sennosides [senna] 8.6 mg PO BID 08/20/19 09/17/19 Lenvima 20 mg PO DAILY 09/16/19 09/17/19 ipratropium-albuterol 3 ml INHALATION Q6H 09/17/19 09/17/19 Allergies Allergy/AdvReac Type Severity Reaction Status Date / Time codeine AdvReac Irritable Verified 10/03/19 15:13 loperamide AdvReac Nausea and Verified 10/03/19 15:13 Vomiting Review of Systems Review of Systems: All systems reviewed & are unremarkable except as noted in HPI and below Constitutional: Constitutional: Reports fever(s) and Reports weakness Eyes: Eyes: Reports no additional eye complaints ENT: Denies dizziness and Denies sore throat Cardiovascular: Cardiovascular: Denies chest pain and Denies rapid heart rate Respiratory: Respiratory: Reports cough and Reports dyspnea Gastrointestinal: Gastrointestinal: Denies diarrhea and Denies vomiting Genitourinary: Genitourinary: Reports no additional male genitourinary complaints Musculoskeletal: Musculoskeletal: Reports back pain and Reports arthralgias Neurologic: Denies headache(s) and Reports weakness PMFSH Past Medical History Medical History Hepatocellular carcinoma Hyperammonemia 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 Metastatic disease Neuropathy Paraparesis Thoracic myelopathy Surgical History Surgical History S/P laminectomy T2-T3 Surgical history unknown Family History Family History Father Acute myocardial infarction Mother Diabetes mellitus Mother Cerebrovascular accident Sibling Hypertension Social History Social History Smoking packs per day: 1 Smoking cigarettes per day: 20.0 Years smoked: 45 Smoking pack-years: 45.00 Smoking status: Former smoker Tobacco type: cigarettes Second hand tobacco smoke exposure: Yes Alcohol intake: former Substance use: former Substance use type: does not use Gender identity (if verbalized by the patient): Male Spiritual care concerns: No Agree to blood products: Yes Exam Const: General: alert and ill appearing Nutritional Appearance: obese Orientation/consciousness: No patient oriented x3 (x 2-3) HENMT: Head: normal to inspection Mouth: Yes moist mucous membranes Eyes: Conjunctivae: conjunctivae normal EOM: EOMs intact bilaterally Neck: Neck: normal visual inspection Resp: Effort & Inspection: tachypneic Auscultation: clear to auscultation bilaterally Cardio: Rate: regular rate Rhythm: regular rhythm GI: Inspection: non-distended GI Palp: Yes Soft to palpation and No Tenderness to palpation present (GI) Skin: General skin exam: normal color Rashes: no rashes Neuro: Other: alert, ox2-3, ue symmetric Extrem: General: no edema Course Course Emergency Course: d/w hospitalists for admit bp was soft but was in line with bp at the time of recent hospital d/c required 02 covered abx but not fluid bolused due to possible c
[2019-10-03 16:21] LABS: CRP 2.3 mg/dL (<1.0)
[2019-10-03 16:25] LABS: Lactic Acid Reflex 1.6 mmol/L (0.7-2.1)
[2019-10-03 16:43] LABS: INR 1.2; Prothrombin Time 14.5 Seconds (11.1-14.7)
[2019-10-03 16:44] LABS: Partial Thromboplastin Time 59.4 SECONDS (22.3-36.8)
[2019-10-03 16:46] LABS: D Dimer 0.98 ug/mL (<0.48)
[2019-10-03 17:48] LABS: Ferritin > 2000.00 ng/mL (11.1-264)
[2019-10-03] MEDS: ALBUTEROL SULFATE (*SP) AEROSOL 1 PUFF 4 PUFF INHALATION (18:45)
[2019-10-03] MEDS: LACTATED RINGERS 1,000 ML 50 ML IV CONT (20:13)
--- NOTE | 2019-10-03 21:00 | ADMGEN ---
This patient, Scott Mckinney, was admitted to [facility] Surg Room 332-01. Patient/family oriented to hospital policies and general routines including ID bracelet, bed and alarms, visiting hours, pain management, procedures, bathroom and other care routines, personal items, smoking policy, room service/diet, and visiting hours. Valuables list has been completed. Information on how to activate the Rapid Response Team has been discussed. Patient/Family are encouraged to report perceived risks to care and to ask questions if they do not understand what they are told or what they should do.
--- NOTE | 2019-10-03 22:03 | PM.IMHP ---
H&P: HPI History of Present Illness Chief complaint: Liver Cancer, Hypoxia Narrative: Scott Mckinney is a 64 year old male who resides at at [facility]. The patient was just admitted here on 09/17/2019 when he was short of breath. He does have a hepato cellular carcinoma with metastasis disease to T3 status post laminectomy of T to in T3 due to metastatic disease. Patient had an echo during his stay and was found to have diastolic congestive heart failure. Patient is not typically on oxygen. He was found to have portal vein thrombosis secondary to invasion with hepatocellular carcinoma. He had been on subcu Lovenox. He also was found have UTI at that time. The patient was seen by his oncologist and has not yet taken any chemo radiation. His oncologist is . Patient was given IV fluids in the emergency room today. For low blood pressure. On oxygen in the emergency room. His chest x-ray was read as mild congestive changes and minimal infiltrate and/or atelectasis in lower lung zones. Patient is being tested for covid 19. The patient has a cough but he stated he has been coughing for 8 months. Patient had a 100.8 degree F temperature or a 38.2 C. patient initially was started on cefepime. Blood cultures and sputum cultures are pending. Patient is placed on droplet isolation. I had a long discussion with the patient concerning his code status and he stated that he is a full code and that his daughter is power protective signal repairer. He stated that he would want to go on a ventilator few was having further difficulty with breathing. There is high suspicion for covid 19 due to patient's fever cough and his place of residence is at [facility]. Patient CPR is highly elevated. But he does have cancer. Ferritin is also very high. Date of service 10/03/2019. I stopped his fluids when he came to the floor and started on a Zithromax and Rocephin. Review of Systems Review of Systems: Narrative: The patient stated that the fevers new since the beginning of the month. All systems reviewed & are unremarkable except as noted in HPI and below Constitutional: Constitutional: Reports as per HPI and Reports no additional constitutional complaints Eyes: Eyes: Reports as per HPI and Reports no additional eye complaints ENT: Reports system reviewed and no additional complaints, except as documented and Reports Normal hearing present Cardiovascular: Cardiovascular: Reports no additional cardiovascular complaints Respiratory: Respiratory: Reports no additional respiratory complaints and Reports no additional respiratory complaints Gastrointestinal: Gastrointestinal: Reports as per HPI and Reports no additional gastrointestinal complaints Musculoskeletal: Musculoskeletal: Reports no additional musculoskeletal complaints Integumentary/Breasts: Skin/Breast: Reports system reviewed and no additional complaints, except as docu and Reports as per HPI Neurologic: Reports system reviewed and no additional complaints, except as documented, Reports as per HPI and Reports Normal hearing present Psychiatric: Psychiatric: Reports no additional psychiatric complaints and Reports as per HPI Endocrine: Endocrine: Reports no additional endocrine complaints Hematologic/Lymphatic: Hematologic/Lymphatic: Reports no additional hematologic/lymphatic complaints Allergic/Immunologic: Allergic/Immunologic: Reports no additional allergic/immunologic complaints [facility] Surgical History Surgical History S/P laminectomy T2-T3 Surgical history unknown Family History Family History Father Acute myocardial infarction Mother Diabetes mellitus Mother Cerebrovascular accident Sibling Hypertension Social History Social History (Updated 10/03/19 @ 22:17 by Erendira Low NP) Social History: The patient has 1 biologi
[2019-10-03] MEDS: FAMOTIDINE 20 MG/2 ML VIAL IV PUSH (22:36)
[2019-10-03] MEDS: FUROSEMIDE INJ 40 MG/4 ML VIAL 20 MG IV PUSH (22:36)
[2019-10-03] MEDS: GABAPENTIN 300 MG CAPSULE PO (22:37)
[2019-10-03 23:33] LABS: Lactate Dehydrogenase 965 U/L (313-618)
[2019-10-04] VITALS (14 sets, daily range): BP systolic 96–111; BP diastolic 40–53; PULSE 61–94; RESP 16–18; TEMP 36.1–36.7; O2SAT 92–96
--- NOTE | 2019-10-04 00:33 | PCRCNOTE ---
tx not given/pt still in ED
[2019-10-04 06:48] LABS: Basophils Absolute Auto 0.1 K/mm3 (0.0-0.1); Basophils Percent Auto 0.9 % (0.2-1.2); Eosinophils Absolute Auto 0.1 K/mm3 (0-0.3); Hematocrit 37.9 % (42.0-52.0); Hemoglobin 11.8 g/dL (14.0-18.0); Immature Granulocyte Absolute 0.06 K/mm3 (0.00-0.031); Lymphocytes Absolute Auto 2.13 K/mm3 (0.9-3.2); Lymphocytes Percent Auto 36.3 % (18.3-44.2); Mean Corpuscular HGB Conc 31.1 g/dl (32-36); Mean Corpuscular Hemoglobin 33.1 pg (26-34); Mean Corpuscular Volume 106.5 fl (80-100); Mean Platelet Volume 8.8 fl (7.4-10.4); Monocytes Absolute Auto 0.6 K/mm3 (0.1-0.6); Monocytes Percent Auto 9.7 % (2.6-8.5); Neutrophils Percent Auto 51.1 % (45.5-73.1); Platelet Count Result 222 k/mm3 (150-375); Red Blood Count 3.56 M/mm3 (4.6-6.20); Red Cell Distribution Width 19.8 % (11.5-14.5); White Blood Count 5.9 K/mm3 (4.5-10.0)
[2019-10-04] MEDS: SODIUM CHLORIDE 0.9% IV 500 ML 999 ML IV CONT (07:03)
[2019-10-04 07:07] LABS: Alanine Aminotransferase 21 U/L (4-50); Alkaline Phosphatase 75 U/L (38-126); Aspartate Amino Transferase 54 U/L (17-59); Bilirubin,Total 0.6 mg/dL (0.2-1.3); Blood Urea Nitrogen 18 mg/dL (9-20); Calcium 7.2 mg/dL (8.4-10.2); Carbon Dioxide 23 mmol/L (22-30); Chloride 110 mmol/L (98-107); Estimated CRCL calculation 65 ml/min; Estimated Glomerular Filt Rate > 60; Glucose 98 mg/dL (75-110); Lactate Dehydrogenase 733 U/L (313-618); Magnesium 2.3 mg/dL (1.6-2.3); Potassium 3.6 mmol/L (3.4-5.0); Sodium 138 mmol/L (137-145)
[2019-10-04 07:16] LABS: Lactate Dehydrogenase 821 U/L (313-618)
[2019-10-04] MEDS: SENNOSIDES 8.6 MG TABLET PO ×2 (08:31→17:51)
[2019-10-04] MEDS: ASPIRIN 81 MG CHEWABLE TABLET PO (08:31)
[2019-10-04] MEDS: CELECOXIB 200 MG CAPSULE PO ×2 (08:32→17:51)
[2019-10-04] MEDS: GABAPENTIN 300 MG CAPSULE PO ×2 (08:32→22:34)
[2019-10-04] MEDS: DOCUSATE SODIUM 100 MG CAPSULE PO ×2 (08:32→17:51)
[2019-10-04] MEDS: PANTOPRAZOLE 40 MG TABLET PO (08:32)
[2019-10-04] MEDS: ENOXAPARIN 100 MG/ML SYRINGE 90 MG SUB-Q ×2 (08:32→22:34)
[2019-10-04] MEDS: ALBUTEROL SULFATE (*SP) AEROSOL 1 PUFF 2 PUFF INHALATION ×4 (09:16→19:22)
[2019-10-04] MEDS: FAMOTIDINE 20 MG/2 ML VIAL IV PUSH ×2 (10:42→22:34)
--- NOTE | 2019-10-04 10:58 | PM.IMPN ---
Progress Note: A&P Assessment and Plan (1) COVID-19: Code(s): U07.1 - COVID-19 Status: Acute Assessment and Plan: COVID-19 positive. Patient presents from [facility] with cough, fever, SOB. Stop antibiotics. Monitor fluid status closely. Continue albuterol MDI. Currently tolerating room air. Montior pulse ox spot checks throughout the day. No respiratory distress today. Monitor acute phase reactants (CRP is 2.3; LDH is 821; Ferritin >2000; LFTs are normal). Blood and sputum cultures pending. 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 He remains on subcu Lovenox by Dr Rueda due to thrombosis vs invasive malignancy into the portal vein. 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 (4) Neuropathy: Code(s): G62.9 - Polyneuropathy, unspecified Status: Acute Assessment and Plan: Continue gabapentin. Subjective Date/time seen: 10/04/19 1015 Interval history: Mr. Mckinney is a 64yo M admitted for pneumonia; COVID-19 positive. He reports feeling a bit short of breath but is tolerating room air at 91% at time of my encounter. He describes a productive cough. No chest pain. Tolerated some breakfast without nausea or vomiting. Review of Systems Review of Systems: Narrative: Twelve systems were reviewed with pertinent positives and negatives as per HPI. Exam Narrative: Exam Narrative: General: Patient resting supine in bed in no acute distress. HEENT: Normocephalic, EOMI, oral mucosa moist. Cardiovascular: Rate and rhythm are regular. Respiratory: Diffuse rhonchi and wheezing throughout all rubalcava. Respirations even and nonlabored. Abdomen: Soft, non-tender, non-distended, bowel sounds present. Extremities: Peripheral pulses intact. No edema, cyanosis or clubbing. Neuro: Paraplegia; able to move upper extremities well but does not walk. Alert and oriented to self, birthdate, knows he is at [facility], reports the month as July. Speech is clear. Objective Data Vital Signs Vital Signs: Last Vital Signs Temp 97.2 F L 10/04/19 08:48 Pulse 61 10/04/19 08:48 Resp 16 10/04/19 08:48 BP 108/46 L 10/04/19 08:48 Pulse Ox 93 10/04/19 09:16 Intake/Output Intake/Output: Intake & Output 10/01/19 10/02/19 10/03/19 10/04/19 23:59 23:59 23:59 23:59 Intake Total 350 Balance 350 Meds/Results Medications: Active Medications Generic Name Dose Route Start Last Admin Trade Name Freq PRN Reason Stop Dose Admin Acetaminophen 650 mg 10/03/19 18:28 Tylenol Tablet PO Q4H PRN Mild Pain (1-3) or Fever Albuterol 2 puff 10/03/19 20:00 10/04/19 09:16 Proventil Hfa INHALATION 2 puff QIDRT JOSE Administration Aspirin 81 mg 10/04/19 08:00 10/04/19 08:31 Aspirin Chewable PO 81 mg DAILY@0800 JOSE Administration Celecoxib 200 mg 10/04/19 08:00 10/04/19 08:32 Celebrex PO 200 mg BIDWM JOSE Administration Docusate Sodium 100 mg 10/04/19 09:00 10/04/19 08:32 Colace Capsule PO 100 mg BID JOSE Administration Enoxaparin Sodium 90 mg 10/04/19 09:00 10/04/19 08:32 Lovenox SUB-Q 90 mg Q12HR JOSE Administration Famotidine 20 mg 10/03/19 21:00 10/04/19 10:42 Pepcid Iv IV PUSH 20 mg Q12HR JOSE Administration Furosemide 20 mg 10/03/19 21:00 10/04/19 08:44 Lasix Inj IV PUSH Not Given Q12HR JOSE Gabapentin 300 mg 10/03/19 22:25 10/04/19 08:32 Neurontin PO 3
[2019-10-04 14:06] LABS: SARS-CoV-2 RNA PCR Positive
[2019-10-05] VITALS (7 sets, daily range): BP systolic 90–113; BP diastolic 41–55; PULSE 78–90; RESP 18–20; TEMP 36.4–36.6; O2SAT 92–94
[2019-10-05 06:36] LABS: Basophils Percent Auto 0.6 % (0.2-1.2); Eosinophils Absolute Auto 0.1 K/mm3 (0-0.3); Eosinophils Percent Auto 2.4 % (0-4.4); Hematocrit 36.2 % (42.0-52.0); Hemoglobin 11.5 g/dL (14.0-18.0); Immature Granulocyte Absolute 0.06 K/mm3 (0.00-0.031); Immature Granulocyte Percent A 1.2 % (0-0.5); Lymphocytes Absolute Auto 1.48 K/mm3 (0.9-3.2); Mean Corpuscular HGB Conc 31.8 g/dl (32-36); Mean Platelet Volume 8.9 fl (7.4-10.4); Monocytes Absolute Auto 0.5 K/mm3 (0.1-0.6); Monocytes Percent Auto 9.7 % (2.6-8.5); Neutrophils Absolute Auto 2.8 K/mm3 (1.3-6.7); Neutrophils Percent Auto 56.1 % (45.5-73.1); Platelet Count Result 214 k/mm3 (150-375); Red Blood Count 3.48 M/mm3 (4.6-6.20); Red Cell Distribution Width 19.4 % (11.5-14.5); White Blood Count 4.9 K/mm3 (4.5-10.0)
[2019-10-05 06:47] LABS: Potassium 3.7 mmol/L (3.4-5.0)
[2019-10-05 06:57] LABS: Alanine Aminotransferase 20 U/L (4-50); Albumin Level 2.8 g/dL (3.5-5.1); Alkaline Phosphatase 73 U/L (38-126); Aspartate Amino Transferase 54 U/L (17-59); Bilirubin,Total 0.5 mg/dL (0.2-1.3); Blood Urea Nitrogen 14 mg/dL (9-20); Calcium 7.6 mg/dL (8.4-10.2); Carbon Dioxide 27 mmol/L (22-30); Chloride 110 mmol/L (98-107); Estimated CRCL calculation 71 ml/min; Estimated Glomerular Filt Rate > 60; Glucose 114 mg/dL (75-110); Magnesium 2.5 mg/dL (1.6-2.3); Phosphorus 2.6 mg/dL (2.5-4.5); Sodium 140 mmol/L (137-145)
[2019-10-05 08:18] LABS: CRP 2.5 mg/dL (<1.0); Creatine Kinase 123 U/L (55-170); Lactate Dehydrogenase 721 U/L (313-618)
[2019-10-05] MEDS: ALBUTEROL SULFATE (*SP) AEROSOL 1 PUFF 2 PUFF INHALATION (08:44)
[2019-10-05] MEDS: CELECOXIB 200 MG CAPSULE PO (09:29)
[2019-10-05] MEDS: ASPIRIN 81 MG CHEWABLE TABLET PO (09:29)
[2019-10-05] MEDS: PANTOPRAZOLE 40 MG TABLET PO (09:29)
[2019-10-05] MEDS: FAMOTIDINE 20 MG/2 ML VIAL IV PUSH (09:31)
[2019-10-05] MEDS: GABAPENTIN 300 MG CAPSULE PO (09:31)
[2019-10-05] MEDS: ENOXAPARIN 100 MG/ML SYRINGE 90 MG SUB-Q (09:31)
--- NOTE | 2019-10-05 11:36 | PM.DS ---
DS: Diagnosis Admitting Diagnosis Admitting Diagnosis: Other general symptoms and signs Discharge Diagnosis (1) COVID-19: Code(s): U07.1 - COVID-19 Status: Acute Assessment and Plan: Date of Service 10/05/19 Mr. Mckinney is a 64yo M with hepatocellular carcinoma and paraplegia secondary to metastasis to the spine who presented [facility] the ED from [facility] for evaluation of cough, shortness of breath and fever. CXR showed minimal infiltrates in bilateral lower lobes. Hypoxia was present and he required up to 2L nasal cannula supplemental O2. He was positive for COVID-19. Treated with albuterol MDI. He was monitored and his respiratory status remained stable. Day of discharge he was afebrile, still tolerating 2L O2 and was hemodynamically stable for discharge back to SNF. He will continue to follow with Dr Rueda for his oncology recommendations. COVID-19 positive. Patient presents from [facility] with cough, fever, SOB. Stop antibiotics. Discharged with albuterol MDI. 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 He remains on subcu Lovenox by Dr Rueda due to thrombosis vs invasive malignancy into the portal vein. 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 (4) Neuropathy: Code(s): G62.9 - Polyneuropathy, unspecified Status: Acute Assessment and Plan: Continue gabapentin. DS: Summary Time Spent with Patient Time attestation: Total time spent providing and/or coordinating discharge services: 40 minutes Exam Narrative: Exam Narrative: General: Patient resting supine in bed in no acute distress. HEENT: Normocephalic, EOMI, oral mucosa moist. Cardiovascular: Rate and rhythm are regular. Respiratory: Diffuse rhonchi and wheezing throughout all rubalcava. Respirations even and nonlabored. Abdomen: Soft, non-tender, non-distended, bowel sounds present. Extremities: Peripheral pulses intact. No edema, cyanosis or clubbing. Neuro: Paraplegia; able to move upper extremities well but does not walk. Alert and oriented to self, birthdate, knows he is at [facility], reports the month as July. Speech is clear. DS: Data Data Completed and Pending Labs on day of discharge: Labs from last 24 hours 10/05/19 10/05/19 10/05/19 06:05 06:05 06:05 WBC RBC Hgb Hct MCV MCH MCHC RDW Plt Count MPV Immature Gran % (Auto) Neut % (Auto) Lymph % (Auto) [place] % (Auto) Eos % (Auto) Baso % (Auto) Lymph # (Auto) [place] # (Auto) Eos # (Auto) Baso # (Auto) Abs Immat Gran (auto) Absolute Neuts (auto) Absolute Nucleated RBC Nucleated RBC % Sodium 140 Potassium 3.7 Chloride 110 H Carbon Dioxide 27 BUN 14 Creatinine 1.00 Estim Creat Clear Calc 71 Estimated GFR > 60 Glucose 114 H Calcium 7.6 L Phosphorus 2.6 Magnesium 2.5 H Ferritin Pending Total Bilirubin 0.5 AST 54 ALT 20 Alkaline Phosphatase 73 Lactate Dehydrogenase 721 H Total Creatine Kinase 123 C-Reactive Protein 2.5 H Total Protein 7.0 Albumin 2.8 L SARS-CoV-2 RNA (RT-PCR) 10/05/19 10/03/19 06:05 15:12 WBC 4.9 RBC 3.48 L Hgb 11.5 L Hct 36.2 L MCV 104.0 H MCH 33.0 MCHC 31.8 L RDW 19.4 H Plt Count 214 MPV 8.9 Immature Gran % (Auto) 1.2 H Neut % (Auto) 56.1 Lymph % (Auto) 30.0 [place] % (Auto) 9.7 H Eos % (A
== END 2019-10-05 12:50 | DRG 177 ==
LOC: ANHED 18:34 → ANH3MEDSUR 10-04 18:42
PROVIDERS: Family Medicine; Nurse Practitioner; Physician Assistant; Admitting Provider Hospitalist; Emergency Provider Emergency Medicine; PCP Internal Medicine; Visit Provider Internal Medicine
DX: U07.1 COVID-19 (principal); I81 Portal vein thrombosis; C22.0 Liver cell carcinoma; C79.49 Secondary malignant neoplasm of other parts of nervous system; G82.20 Paraplegia, unspecified; G95.9 Disease of spinal cord, unspecified; G62.9 Polyneuropathy, unspecified; R05 Cough; R50.9 Fever, unspecified; R06.02 Shortness of breath
CPT/HCPCS: 36415; 71045; 80048; 80053; 82550; 82728; 83605; 83615; 83735; 84100; 85025; 85380; 85610; 85730; 86140; 87040; 87070; 87077; 87186; 87205; 87635; 93005; 94640; 96365; 99285; A9270; J0456; J0692; J0696; J1650; J1940; J7040; J7060; J7120; U0003

== ENCOUNTER 2019-11-20 13:52 | Outpatient (CLI) | payer MEDICARE, MEDICAID, SELFPAY ==
--- NOTE | ~2019-11-20 | CT_ITS ---
EXAMINATION: CT abdomen pelvis w con DATE: 11/20/2019 14:32 INDICATION: Hepatocellular carcinoma. TECHNIQUE: Computed tomography (CT) of the abdomen and pelvis was performed with 100 mL Omnipaque 350 intravenous contrast. Automated exposure control and iterative reconstruction technique were employe d. The dose-length product was 810.71 mGy-cm. COMPARISON: CT abdomen and pelvis 09/18/2019 FINDINGS: The visualized portions of the lung bases demonstrate mild atelectasis. A calcified left caryl ng nodule is consistent with old granulomatous disease. No pleural effusion. The heart size is normal . There are coronary artery calcifications. There is a small pericardial effusion. The liver demonstr ates hypertrophy of left lateral segment and surface nodularity, consistent with cirrhosis. There is thrombosis of main portal vein and right portal vein with cavernous transformation. There is heteroge neously decreased attenuation in right hepatic lobe. Paraesophageal varices are noted. The gallbladde r is distended, which may be secondary to fasting. Calcifications in the spleen are consistent with o ld granulomatous disease. The pancreas and left adrenal gland are normal. There is an 11 mm mass in r ight adrenal gland measuring soft tissue attenuation. There is cortical thinning of the kidneys. Ther e is a 5 mm cyst in right kidney. The prostate is mildly enlarged. There are no dilated loops of edwin l. The appendix is normal. The foramen of Grandy node measures 4.6 x 3.2 cm and previously measured 5.5 x 3.6 cm. A periportal node measures 2.5 x 1.6 cm that previously measured 2.5 x 1.5 cm. A 3.0 x 1.6 cm periportal node previously measured 3.1 x 2.1 cm. There is trace perihepatic ascites. There is mild thoracolumbar spondylosis. There are bridging endplate osteophytes at multiple levels in the th oracic spine, consistent with diffuse idiopathic skeletal hyperostosis (DISH). IMPRESSION: 1. Heterogeneous attenuation of right hepatic lobe, likely some combination of ill-defined primary ma lignancy and transient hepatic attenuation difference (GENIA). 2. Persistent thrombosis of right portal vein and main portal vein. Some portion of this thrombus may be tumor thrombus. 3. Stable abdominal lymphadenopathy, consistent with metastatic disease. 4. Stable right adrenal mass, which may be an adenoma or metastatic disease. Reviewed, dictated and finalized at location A. IMPRESSION: 1. Heterogeneous attenuation of right hepatic lobe, likely some combination of ill-defined primary malignancy and transient hepatic attenuation difference (TH AD). 2. Persistent thrombosis of right portal vein and main portal vein. Some portio n of this thrombus may be tumor thrombus. 3. Stable abdominal lymphadenopathy, consistent with metastatic disease. 4. Stable right adrenal mass, which may be an adenoma or metastatic disease.
[2019-11-20 14:28] LABS: Estimated Glomerular Filt Rate > 60
== END 2019-11-20 13:53 | disposition home or self-care (01) ==
PROVIDERS: PCP Internal Medicine; Visit Provider Internal Medicine Medical Oncology
DX: C22.0 Liver cell carcinoma (principal); I81 Portal vein thrombosis; R59.0 Localized enlarged lymph nodes; E27.9 Disorder of adrenal gland, unspecified
CPT/HCPCS: 36415; 74177; Q9967